=== PATIENT | male | born 1930 | race Caucasian/White ===

== ENCOUNTER 2016-11-28 12:20 | Emergency (ER) | payer OTHER ==
[~2016-11-28] VITALS: Ht 180.3 cm; Wt 93.0 kg
[~2016-11-28 12:20] MED LIST: APIX2.5T PO; CYCL-36 PO; FLUD.1 PO; LEVO88TA2 PO; OMEP20TA39 PO; PARO1TAB71 PO; VALT500T PO; VITA100T15 PO; VITA400D PO
[2016-11-28 12:29] VITALS: BP 125/84; PULSE 80; RESP 16; TEMP 97.6; O2SAT 97
[2016-11-28] MEDS ORDERED: OMEP20TA PO (12:44)
[2016-11-28] MEDS ORDERED: APIX2.5T PO (12:44)
[2016-11-28] MEDS ORDERED: LEVO88TA2 PO (12:44)
[2016-11-28] MEDS ORDERED: PARO10TA2 PO (12:44)
[2016-11-28] MEDS ORDERED: ACETAMINOPHEN 500 MG CPLT PO ONE (13:00)
--- NOTE | 2016-11-28 13:04 | PD ---
HPI Chief Complaint: Fall Time Seen by Provider: 12:57 Travel History International Travel<30 days: No Contact w/Intl Traveler<30days: No Traveled to known affect area: No History of Present Illness HPI 86yo M with PMH of CVA, afib on eliquis presents to the ED with left buttock and hip pain s/p fall 3 days ago. Pt was getting off a stationary exercise bike when he fell backwards and landed on his buttocks. Denies any head trauma , LOC, chest pain, sob, dizziness, n/v, abdominal pain, focal weakness or numbness. Pt was able to ambulate after fall. Pain is mainly in ischial tuberosity on left side and worst with movement. The reason pt decided to come in today is because he was talking to his physical therapist at home and felt that he should make sure everything is fine. Pain is not getting worst and last time he took tylenol was last night. No urinary complaints. Pt had a cyst in left lower back for 1 month and had been evaluated by PMD already and it has gotten better. 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, left arm r/t injury) Social History Alcohol Use: Yes (wine daily) Tobacco Use: No Substance Use: No Allergies-Medications (Allergen,Severity, Reaction): Coded Allergies: Albuterol (Verified Adverse Reaction, Mild, HEART RACING, 11/28/16) Reported Meds & Prescriptions Reported Meds & Active Scripts Active Reported Levothyroxine (Levothyroxine Sodium) 88 Mcg Tab 88 Mcg PO DAILY Paroxetine (Paroxetine HCl) 10 Mg Tab 5 Mg PO DAILY Omeprazole 20 Mg Tab 20 Mg PO DAILY Eliquis (Apixaban) 2.5 Mg Tab 2.5 Mg PO BID Review of Systems Except as stated in HPI: all other systems reviewed are Neg Physical Exam Narrative GENERAL: 86yo M not in distress. SKIN: Focused skin assessment warm/dry. HEAD: Atraumatic. Normocephalic. EYES: Pupils equal and round at 3mm bilaterally. EOMI. No scleral icterus. No injection or drainage. ENT: No nasal bleeding or discharge. Mucous membranes pink and moist. NECK: Trachea midline. No JVD. CARDIOVASCULAR: Regular rate and rhythm. No murmur appreciated. RESPIRATORY: No accessory muscle use. Clear to auscultation. Breath sounds equal bilaterally. GASTROINTESTINAL: Abdomen soft, non-tender, nondistended. No rebound tenderness or guarding. BACK: No midline ttp. Erythematous rash on left paraspinal region that has been there for 1 month. MUSCULOSKELETAL: No obvious deformities. No clubbing. No cyanosis. +Bilateral lower ext edema. +TTP left ischial tuberosity. LLE: No ttp left hip. DP 2+. Good range of motion in left hip, knee, ankle. NEUROLOGICAL: Awake and alert. GCS 15. AAOx3. No obvious cranial nerve deficits. No perineal paresthesia. Motor grossly within normal limits. Normal speech. PSYCHIATRIC: Appropriate mood and affect; insight and judgment normal. Data Data Last Documented VS Vital Signs Date Time Temp Pulse Resp B/P Pulse Ox O2 Delivery O2 Flow Rate FiO2 11/28/16 12:29 97.6 80 16 125/84 97 Orders Hip, Uni(Ap&Lat) W Ap Pelvis (11/28/16 ) Acetaminophen (Tylenol) (11/28/16 13:00) MDM Medical Decision Making Medical Screen Exam Complete: Yes Emergency Medical Condition: Yes Interpretation(s) Last Impressions Hip and Pelvis X-Ray 11/28/16 0000 Signed Impressions: Service Date/Time: Monday, November 28, 2016 13:25 - CONCLUSION: Mild degenerative change without fracture. Vinayak Choi MD Differential Diagnosis Contusion vs. fracture vs. musculoskeletal pain Narrative Course 86yo well appearing male here with left buttock pain s/p fall onto his buttocks 3 days ago. Pt able to ambulate and complains of pain only with movement. Denies any head trauma. Denies any neurologic deficits or urinary complaints. Xray of left hip with pelvis showed mild degenerative change without fracture. Pt given acetaminophen which helped with pain. Pt already has physical therapy that comes to his home. Return precautions given. Diagnosis Primary Impression: Fall Qualified Code: W19.XXXA - Fall, initial encounter Patient Instructions: General Instructions Departure Forms: Tests/Procedures Additional Instructions: Please follow up with your PMD in 3-7 days. Return to the ED if symptoms worsen. Med/Other Pt SpecificInfo: Prescription(s) given Scripts Acetaminophen 325 Mg [id number] Mg PO Q4-6H PRN (PAIN SCALE 1 TO 4) #20 TAB Ref 0 Prov:Hermila Little DO 11/28/16 Disposition: 01 DISCHARGE HOME Condition: Stable Hermila Little DO November 28, 2016 13:04
--- NOTE | 2016-11-28 13:49 | RADHPO ---
EXAM DATE/TIME: 11/28/2016 13:25 [facility] COMPARISON: No previous studies available for comparison. INDICATIONS : Left hip pain. Patient was riding a stationary bike, the bike fell on him when he was getting off. MEDICAL HISTORY : None. SURGICAL HISTORY : None. ENCOUNTER: Initial ACUITY: 3 days PAIN SCORE: 5/10 LOCATION: Left pelvis hip FINDINGS: Examination of the left hip was performed with AP Pelvis. Mild degenerative changes lower lumbar spin e. Mild degenerative changes at each hip. No fracture seen. Prostatic calcifications are noted. CONCLUSION: Mild degenerative change without fracture. Vinayak Choi MD on November 28, 2016 at 13:45 Board Certified Radiologist. This report was verified electronically.
[2016-11-28] MEDS ORDERED: ACET325T PO (14:29)
[2016-11-28 14:38] VITALS: BP 116/68; PULSE 65; RESP 14; O2SAT 96
== END 2016-11-28 14:39 | disposition home or self-care (01) ==
LOC: PHED 12:20
DX: M25.552 Pain in left hip (principal); I48.91 Unspecified atrial fibrillation; I71.4 Abdominal aortic aneurysm, without rupture; F03.90 Unspecified dementia, unspecified severity, without behavioral disturbance, psychotic disturbance, mood disturbance, and anxiety; Z86.73 Personal history of transient ischemic attack (TIA), and cerebral infarction without residual deficits; Z79.01 Long term (current) use of anticoagulants; W17.89XA Other fall from one level to another, initial encounter; Y93.A1 Activity, exercise machines primarily for cardiorespiratory conditioning; Y92.9 Unspecified place or not applicable; Y99.8 Other external cause status
CPT/HCPCS: 73502; 99283

== ENCOUNTER 2017-09-24 13:34 | Emergency (ER) | payer OTHER ==
[~2017-09-24] VITALS: Ht 177.8 cm; Wt 92.0 kg
[~2017-09-24 13:34] MED LIST changes: +ACET325T PO; -CYCL-36 PO; -FLUD.1 PO; -OMEP20TA39 PO; +OMEP20TA93 PO; +PARO10TA2 PO; -PARO1TAB71 PO; -VALT500T PO; -VITA100T15 PO; -VITA400D PO
[2017-09-24 13:43] VITALS: PULSE 74; RESP 16; TEMP 97.8; O2SAT 96
[2017-09-24] MEDS ORDERED: CARV3.12 PO (14:27)
[2017-09-24] MEDS ORDERED: FLUD.1 PO (14:27)
[2017-09-24] MEDS ORDERED: MECL-62 PO (14:27)
[2017-09-24] MEDS ORDERED: POTA-163 PO (14:27)
[2017-09-24] MEDS ORDERED: FURO1TAB62 PO (14:27)
--- NOTE | 2017-09-24 14:32 | RADRPT ---
EXAM DATE/TIME: 09/24/2017 14:05 [facility] COMPARISON: No previous studies available for comparison. INDICATIONS : Left leg pain. MEDICAL HISTORY : Stroke. Dementia. Aneurysm, abdominal. Hypothyroidism. A-fib. SURGICAL HISTORY : Bilateral popliteal aneurysm stents. ENCOUNTER: Initial ACUITY: 2 day PAIN SCORE: 4/10 LOCATION: Left leg. TECHNIQUE: Venous ultrasound of the leg was performed from the inguinal ligament to the proximal calf. Real-archie e, color Doppler and spectral tracing, compression and augmentation techniques were used. FINDINGS: There is normal compressibility of the deep venous system from the inguinal region to the proximal ca lf. No echogenic clot is seen in the lumen of the common femoral, femoral, popliteal, and posterior tibial veins. There is a normal response of the venous system to proximal and distal augmentation an d respiration. No flow is identified in the popliteal artery. CT angiography is recommended for further evaluation i f clinically indicated. CONCLUSION: 1. No evidence of deep venous thrombosis. 2. Popliteal artery occlusion. CT angiography of the abdominal aorta and lower extremities is recomme nded for further evaluation if clinically indicated. Last Marin MD on September 24, 2017 at 14:29 Board Certified Radiologist. This report was verified electronically.
--- NOTE | 2017-09-24 15:01 | PD ---
HPI Chief Complaint: Musculoskeletal Complaint Time Seen by Provider: 13:45 Travel History International Travel<30 days: No Contact w/Intl Traveler<30days: No Traveled to known affect area: No History of Present Illness HPI 87-year-old male that presents to the ED for evaluation of left tight pain. Patient has had this pain since today. He will cover this. No injuries but per son patient has been walking up the stairs and this could've caused this. 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 He does not know the surgeon who did and unclear if he still follows with the same surgeon. He denies any discoloration of the feet or any pain on the feet itself. All the pain is on the medial aspect of the left upper leg. Reproducible with touch as well as with movement. No obvious deformity noted per patient. Per patient the pain is 6 out of 10. He usually uses a walker to get about. Per patient he takes a blood thinner eliquis. He denies any other medical issues. No head injury or loss of consciousness. 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, left arm r/t injury) Social History Alcohol Use: Yes (wine daily) Tobacco Use: No Substance Use: No Allergies-Medications (Allergen,Severity, Reaction): Coded Allergies: albuterol (Unverified Adverse Reaction, Mild, HEART RACING, 09/24/17) Reported Meds & Prescriptions Reported Meds & Active Scripts Active Hydrocodone-Acetaminophen 5-300 Mg Tab 1 Tab PO Q6H PRN Reported Potassium Chloride ER (Potassium Chloride) 20 Meq Tab 20 Meq PO DAILY Lasix (Furosemide) 20 Mg Tab 20 Mg PO DAILY Meclizine (Meclizine HCl) 25 Mg Tab 25 Mg PO DIRECTED PRN Carvedilol 3.125 Mg Tab 3.125 Mg PO BID Fludrocortisone (Fludrocortisone Acetate) 0.1 Mg Tab 0.1 Mg PO BID Levothyroxine (Levothyroxine Sodium) 88 Mcg Tab 88 Mcg PO DAILY Paroxetine (Paroxetine HCl) 10 Mg Tab 5 Mg PO DAILY Omeprazole 20 Mg Tab 20 Mg PO DAILY Eliquis (Apixaban) 2.5 Mg Tab 2.5 Mg PO BID Review of Systems Except as stated in HPI: all other systems reviewed are Neg Physical Exam Narrative GENERAL: SKIN: Warm and dry. HEAD: Atraumatic. Normocephalic. EYES: Pupils equal and round. No scleral icterus. No injection or drainage. ENT: No nasal bleeding or discharge. Mucous membranes pink and moist. NECK: Trachea midline. No JVD. CARDIOVASCULAR: Regular rate and rhythm. RESPIRATORY: No accessory muscle use. Clear to auscultation. Breath sounds equal bilaterally. GASTROINTESTINAL: Abdomen soft, non-tender, nondistended. Hepatic and splenic margins not palpable. MUSCULOSKELETAL: Extremities without clubbing, cyanosis, or edema. No obvious deformities. Patient has reproducible pain on the medial aspect of the left inner thigh. Patient does have surgical scars noted in this area as well from his previous surgeries. Pulses cannot be palpated but with Doppler can be heard. Appears to be 1+. No obvious bony deformity noted. Able to move the leg fully. Pain with movement on the same area. NEUROLOGICAL: Awake and alert. No obvious cranial nerve deficits. Motor grossly within normal limits. Five out of 5 muscle strength in the arms and legs. Normal speech. PSYCHIATRIC: Appropriate mood and affect; insight and judgment normal. Data Data Last Documented VS Vital Signs Date Time Temp Pulse Resp B/P (MAP) Pulse Ox O2 Delivery O2 Flow Rate FiO2 09/24/17 17:36 76 18 134/82 (99) 99 Room Air 09/24/17 13:43 97.8 Orders Orders Femur (Ap & Lat/2vws) (09/24/17 13:53) Ice/Cold Pack (09/24/17 13:53) Us Leg Venous Doppler (09/24/17 13:53) Iv Access Insert/Monitor (09/24/17 14:38) Basic Metabolic Panel (Bmp) (09/24/17 14:38) Coag Profile (09/24/17 14:38) Complete Blood Count With Diff (09/24/17 14:38) Cta Runoff W Iv Contrast W 3d (09/24/17 ) Iohexol 350 Inj (Omnipaque 350 Inj) (09/24/17 16:27) Ed Discharge Order (09/24/17 18:45) Labs Laboratory Tests Test 09/24/17 14:50 White Blood Count 6.3 TH/MM3 Red Blood Count 3.95 MIL/MM3 Hemoglobin 13.3 GM/DL Hematocrit 38.7 % Mean Corpuscular Volume 97.8 FL Mean Corpuscular Hemoglobin 33.5 PG Mean Corpuscular Hemoglobin Concent 34.3 % Red Cell Distribution Width 13.9 % Platelet Count 162 TH/MM3 Mean Platelet Volume 7.9 FL Neutrophils (%) (Auto) 56.4 % Lymphocytes (%) (Auto) 33.3 % Monocytes (%) (Auto) 5.7 % Eosinophils (%) (Auto) 4.3 % Basophils (%) (Auto) 0.3 % Neutrophils # (Auto) 3.5 TH/MM3 Lymphocytes # (Auto) 2.1 TH/MM3 Monocytes # (Auto) 0.4 TH/MM3 Eosinophils # (Auto) 0.3 TH/MM3 Basophils # (Auto) 0.0 TH/MM3 CBC Comment DIFF FINAL Differential Comment Prothrombin Time 11.4 SEC Prothromb Time International Ratio 1.1 RATIO Activated Partial Thromboplast Time 27.8 SEC Blood Urea Nitrogen 16 MG/DL Creatinine 0.85 MG/DL Random Glucose 97 MG/DL Calcium Level 8.8 MG/DL Sodium Level 140 MEQ/L Potassium Level 3.7 MEQ/L Chloride Level 104 MEQ/L Carbon Dioxide Level 30.1 MEQ/L Anion Gap 6 MEQ/L Estimat Glomerular Filtration Rate 85 ML/MIN MDM Medical Decision Making Medical Screen Exam Complete: Yes Emergency Medical Condition: Yes Medical Record Reviewed: Yes Interpretation(s) Last Impressions Lower Extremity Ultrasound 09/24/17 3351 Signed Impressions: Service Date/Time: Sunday, September 24, 2017 14:05 - CONCLUSION: 1. No evidence of deep venous thrombosis. 2. Popliteal artery occlusion. CT angiography of the abdominal aorta and lower extremities is recommended for further evaluation if clinically indicated. Last Marin MD Femur X-Ray 09/24/17 [id number] Signed Impressions: Service Date/Time: Sunday, September 24, 2017 14:00 - CONCLUSION: 1. Negative examination of the femur. Mild osteoarthritis right knee Last Marin MD Aorta w/Runoff CTA 09/24/17 0000 Signed Impressions: Service Date/Time: Sunday, September 24, 2017 16:11 - CONCLUSION: 1. Patent inflow. There is a 4.1 cm AAA which is slightly larger from the prior exam. 2. Right lower extremity shows a patent jump graft around the samish popliteal artery. 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 Runoff to the foot is not well evaluated as there is poor opacification with the contrast bolus. 3. Left lower extremity shows a patent jump graft around the samish popliteal artery. Runoff is poorly evaluated due to poor opacification with the contrast bolus. 4. Chronic interstitial changes in the lung bases. Pablo Sauceda Jr., MD CBC & BMP Diagram 09/24/17 14:50 Calcium Level 8.8 Differential Diagnosis Arterial thrombosis versus occlusion versus DVT versus muscle strain Narrative Course 79-year-old male that presents to the ED for evaluation of left leg pain with no injury. Patient was properly examined and was found to have signs and symptoms concerning for DVT versus arterial injury. Ultrasound was done as well as x-ray and they were both negative for bony injury or DVT but patient does appear to have an occlusion of the artery on the popliteal area. CTA was recommended per radiologist. At this time because patient does have some low pulses at the recommend doing CTA to rule out any sign of anything that might require any intervention. CTA did show an aneurysm but on the right side as well as AAA. Otherwise unremarkable. Case was discussed with Dr. Cooper over the phone who recommends outpatient follow-up outpatient. No immediate intervention needed at this time. Patient's pain on the left leg appears to be muscular in nature and we'll treat with pain medication as needed. Patient was given information for Dr. Cooper office. Patient is aware that he needs to follow with Dr. Cooper. See ED worsening symptoms. Follow with PCP. Diagnosis Primary Impression: Muscle strain Referrals: Bayron Cooper MD Patient Instructions: General Instructions Additional Instructions: Tylenol for pain. Take pain medication as needed. A careful with the pain medication as he might make a little drowsy. I was use a walker when ambulating. Follow-up with Dr. Cooper who is expecting you this week to further manage your aneurysms. His phone number is . Med/Other Pt SpecificInfo: Prescription(s) given Scripts Hydrocodone-Acetaminophen (Hydrocodone-Acetaminophen) 5-300 Mg Tab 1 TAB PO Q6H Y for PAIN, #10 TAB 0 Refills Prov: Bayron Cooper MD 09/24/17 Disposition: 01 DISCHARGE HOME Condition: Nav Triplett Sep 24, 2017 15:01
[2017-09-24 15:12] LABS: AUTOMATED NEUTROPHIL # 3.5 TH/MM3 (1.8-7.7); BASOPHIL % 0.3 % (0.0-2.0); EOSINOPHIL # 0.3 TH/MM3 (0-0.4); EOSINOPHIL % 4.3 % (0.0-4.0); HEMATOCRIT 38.7 % (39.0-51.0); HEMOGLOBIN 13.3 GM/DL (13.0-17.0); LYMPH % 33.3 % (9.0-44.0); LYMPHOCYTE # 2.1 TH/MM3 (1.0-4.8); MEAN CELL VOLUME 97.8 FL (80.0-100.0); MEAN CORPUSCULAR HEMOGLOBIN 33.5 PG (27.0-34.0); MEAN CORPUSCULAR HGB CONC 34.3 % (32.0-36.0); MEAN PLATELET VOLUME 7.9 FL (7.0-11.0); MONO % 5.7 % (0.0-8.0); MONOCYTE # 0.4 TH/MM3 (0-0.9); NEUT % 56.4 % (16.0-70.0); PLATELET COUNT 162 TH/MM3 (150-450); RED BLOOD COUNT 3.95 MIL/MM3 (4.50-5.90); RED CELL DISTRIBUTION WIDTH 13.9 % (11.6-17.2); WHITE BLOOD COUNT 6.3 TH/MM3 (4.0-11.0)
--- NOTE | 2017-09-24 15:18 | RADRPT ---
EXAM DATE/TIME: 09/24/2017 14:00 [facility] COMPARISON: No previous studies available for comparison. INDICATIONS : Left leg pain with no known injury MEDICAL HISTORY : : Stroke. Dementia. Aneurysm, abdominal. Hypothyroidism. A-fib. SURGICAL HISTORY : Bilateral popliteal aneurysm stents ENCOUNTER: Initial ACUITY: 2 days PAIN SCORE: 4/10 LOCATION: Left groin FINDINGS: Two view examination of the left femur demonstrates no evidence of fracture or dislocation. Bony min eralization is normal. The soft tissue structures are intact. CONCLUSION: 1. Negative examination of the femur. Mild osteoarthritis right knee Last Marin MD on September 24, 2017 at 15:16 Board Certified Radiologist. This report was verified electronically.
[2017-09-24 15:25] LABS: BICARBONATE 30.1 MEQ/L (21.0-32.0); CALCIUM 8.8 MG/DL (8.5-10.1); INTERNATIONAL NORMALIZED RATIO 1.1 RATIO; PROTHROMBIN TIME - PATIENT 11.4 SEC (9.8-11.6)
[2017-09-24 15:29] LABS: CREATININE 0.85 MG/DL (0.60-1.30)
[2017-09-24] MEDS ORDERED: IOHEXOL 350 MG/ML 10 ML VIAL (for RAD DIAG) IVCONTRAST ONE (16:27)
[2017-09-24 17:36] VITALS: BP 134/82; PULSE 76; RESP 18; O2SAT 99
--- NOTE | 2017-09-24 18:21 | RADRPT ---
EXAM DATE/TIME: 09/24/2017 16:11 [facility] COMPARISON: CTA RUNOFF W 3D RECON, January 16, 2015, 15:03. INDICATIONS : Leg pain since last night. IV CONTRAST: 95 cc Omnipaque 350 (iohexol) IV RADIATION DOSE: 12.31 CTDIvol (mGy) MEDICAL HISTORY : Stroke. Dementia. Aneurysm, abdominal. Hypothyroidism. A-fib. SURGICAL HISTORY : Bilateral popliteal aneurysm stents. ENCOUNTER: Initial ACUITY: 2 days PAIN SCALE: 4/10 LOCATION: Left leg TECHNIQUE: Volumetric scanning was performed using a multi-row detector CT scanner. The data was post processed with a variety of visualization algorithms including full volume maximum intensity projection, multi -planar sliding thin slab reformation, curved planar reformation, and surface rendering techniques. Using automated exposure control and adjustment of the mA and/or kV according to patient size, radiat ion dose was kept as low as reasonably achievable to obtain optimal diagnostic quality images. DICO M format image data is available electronically for review and comparison. FINDINGS: Aorta/inflow: There is a 4.1 x 3.4 cm fusiform infrarenal abdominal aortic aneurysm. This is minimally larger from the prior study. Inflow is patent. Both internal iliac arteries are patent. The celiac, SMA, and catrachita l arteries are patent. Right lower extremity: The common femoral artery and profunda femoris are patent. The SFA is patent. There is a jump graft e xtending from the vnkfs-but-clap popliteal artery to the below knee popliteal artery. This is patent. There is a saccular style aneurysm involving the [place] [id number]-[id number]-[id number] popliteal artery at the level of the proximal anastomosis. This measures 2.8 cm in size which is larger from the prior study where it measured 2 cm in size. The [place] popliteal artery that is now that has been bypassed shows a thr ombosed popliteal artery aneurysm. The below knee popliteal artery and immediate proximal trifurcatio n vessels are patent. Below this there is poor opacification with the contrast bolus secondary to a d elusional effect from the more proximal aneurysm. Left lower extremity: The common femoral artery, profunda femoris, and SFA are patent. There is a jump graft around the pop liteal artery. The proximal anastomosis is at the fibqv-gvz-rsda popliteal level with the distal anas tomosis at the below knee popliteal level. The bypass is patent. The below knee popliteal artery and immediate proximal trifurcation vessels are patent. There is poor opacification of the vessels distal to this point. Other structures: Chronic interstitial changes within the visualized lung bases. Coronary artery atherosclerotic calcif ications noted. Prostate gland calcifications noted. No discrete mass observed. Of CONCLUSION: 1. Patent inflow. There is a 4.1 cm AAA which is slightly larger from the prior exam. 2. Right lower extremity shows a patent jump graft around the [place] popliteal artery. 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 Runoff to the foot is not well evaluated as there is poor opacification with the contra st bolus. 3. Left lower extremity shows a patent jump graft around the [place] popliteal artery. Runoff is poorl y evaluated due to poor opacification with the contrast bolus. 4. Chronic interstitial changes in the lung bases. Pablo Sauceda Jr., MD on September 24, 2017 at 18:07 Board Certified Radiologist. This report was verified electronically.
[2017-09-24] MEDS ORDERED: HYDR-4107 PO ×2 (18:47→18:52)
== END 2017-09-24 18:56 | disposition home or self-care (01) ==
LOC: PHEFT 13:34
DX: S86.912A Strain of unspecified muscle(s) and tendon(s) at lower leg level, left leg, initial encounter (principal); M17.11 Unilateral primary osteoarthritis, right knee; I48.91 Unspecified atrial fibrillation; F03.90 Unspecified dementia, unspecified severity, without behavioral disturbance, psychotic disturbance, mood disturbance, and anxiety; I69.998 Other sequelae following unspecified cerebrovascular disease; E07.9 Disorder of thyroid, unspecified; Z79.899 Other long term (current) drug therapy; Z88.8 Allergy status to other drugs, medicaments and biological substances; X58.XXXA Exposure to other specified factors, initial encounter
CPT/HCPCS: 73552; 75635; 80048; 85025; 85610; 85730; 93971; 99284; Q9967

== ENCOUNTER 2017-11-30 18:03 | Observation (INO) | payer OTHER ==
[~2017-11-30] VITALS: Ht 180.3 cm; Wt 95.0 kg
[~2017-11-30 18:03] MED LIST changes: -ACET325T PO; +CARV3.12 PO; +FLUD.1 PO; +FURO1TAB62 PO; +HYDR-4107 PO; +MECL-62 PO; +POTA-163 PO
[2017-11-30 18:35] VITALS: BP 135/88; PULSE 90; RESP 20; TEMP 101.7; O2SAT 95
[2017-11-30] MEDS ORDERED: OMEP20TA93 PO (18:48)
[2017-11-30] MEDS ORDERED: LEVO88TA2 PO (18:48)
[2017-11-30] MEDS ORDERED: VITA100064 PO (18:48)
[2017-11-30] MEDS ORDERED: FLUT50SP EACH NARE (18:48)
[2017-11-30] MEDS ORDERED: FLUD.1 PO (18:48)
[2017-11-30] MEDS ORDERED: CYAN1TAB24 PO (18:48)
--- NOTE | 2017-11-30 18:58 | PD ---
HPI Chief Complaint: Fever Time Seen by Provider: 18:55 Travel History International Travel<30 days: No Contact w/Intl Traveler<30days: No Traveled to known affect area: No History of Present Illness HPI 87-year-old male came to the emergency room brought by EMS for confusion, fever of 101. He is coming from home. Patient has history of dementia and is unable to give any meaningful history. Awaiting for his family to arrive. Patient's temperature in the emergency room was 101.7 rectally. He is awake but incapable of answering questions appropriately. Vital signs otherwise stable. [facility] Past Medical History Narrative Medical List of his past medical, surgical, social and family history is reviewed from the nursing note. Hx Anticoagulant Therapy: Yes AAA: Yes Atrial Fibrillation: Yes Cancer: No Cardiovascular Problems: No Cerebrovascular Accident: Yes (CVA GAIT ISSUES) Dementia: Yes Diabetes: No Diminished Hearing: Yes (hearing aides) Endocrine: No Genitourinary: No Immune Disorder: No Musculoskeletal: No Neurologic: No Psychiatric: No Reproductive: No Respiratory: No Shingles: Yes Thyroid Disease: Yes (Hypo-) Tetanus Vaccination: < 5 Years Influenza Vaccination: Yes Past Surgical History Other Surgery: Yes (aneurysm to bilat popliteal with repairs, left arm r/t injury) Social History Alcohol Use: Yes (Wine daily ) Tobacco Use: No Substance Use: No Allergies-Medications (Allergen,Severity, Reaction): Coded Allergies: albuterol (Verified Adverse Reaction, Mild, Heart racing , 11/30/17) Comments List of his allergies reviewed from the nursing note Reported Meds & Prescriptions Reported Meds & Active Scripts Active Reported Fluticasone Nasal [place] 50 Mcg/Act Naspr 100 Mcg EACH NARE DAILY 50 mcg/spray Omeprazole 20 Mg Tab 20 Mg PO DAILY Levothyroxine (Levothyroxine Sodium) 88 Mcg Tab 88 Mcg PO DAILY Fludrocortisone (Fludrocortisone Acetate) 0.1 Mg Tab 0.1 Mg PO BID Vitamin D3 (Cholecalciferol) 1,000 Unit Tab 1,000 Units PO DAILY B12 (Cyanocobalamin) 1,000 Mcg Tab 1 Tab PO DAILY Potassium Chloride ER (Potassium Chloride) 20 Meq Tab 20 Meq PO DAILY Lasix (Furosemide) 20 Mg Tab 20 Mg PO DAILY Meclizine (Meclizine HCl) 25 Mg Tab 25 Mg PO BID Carvedilol 3.125 Mg Tab 3.125 Mg PO BID Paroxetine (Paroxetine HCl) 10 Mg Tab 5 Mg PO DAILY Eliquis (Apixaban) 2.5 Mg Tab 2.5 Mg PO BID Narrative Medication List of his home medications reviewed from the nursing note. Review of Systems ROS Limitations: Altered Mental Status Except as stated in HPI: all other systems reviewed are Neg General / Constitutional: Positive: Fever Physical Exam Exam Limitations: Altered Mental Status Narrative GENERAL: Elderly, confused, not following commands SKIN: Focused skin assessment warm/dry. HEAD: Atraumatic. Normocephalic. EYES: Pupils equal and round. No scleral icterus. No injection or drainage. ENT: No nasal bleeding or discharge. Mucous membranes pink and moist. NECK: Trachea midline. No JVD. CARDIOVASCULAR: Regular rate and rhythm. No murmur appreciated. RESPIRATORY: No accessory muscle use. Clear to auscultation. Breath sounds equal bilaterally. GASTROINTESTINAL: Abdomen soft, non-tender, nondistended. Hepatic and splenic margins not palpable. MUSCULOSKELETAL: No obvious deformities. No clubbing. No cyanosis. No edema. NEUROLOGICAL: Awake and alert. No obvious cranial nerve deficits. Motor grossly within normal limits. Normal speech. PSYCHIATRIC: Appropriate mood and affect; insight and judgment normal. Data Data Last Documented VS Vital Signs Date Time Temp Pulse Resp B/P (MAP) Pulse Ox O2 Delivery O2 Flow Rate FiO2 11/30/17 18:40 90 20 95 Room Air 11/30/17 18:35 101.7 135/88 (104) Orders Orders Electrocardiogram (11/30/17 18:56) Ammonia (11/30/17 18:56) Complete Blood Count With Diff (11/30/17 18:56) Comprehensive Metabolic Panel (11/30/17 18:56) Creatine Kinase (Cpk) (11/30/17 18:56) Prothrombin Time / Inr (Pt) (11/30/17 18:56) Troponin I (11/30/17 18:56) Thyroid Stimulating Hormone (11/30/17 18:56) Urinalysis - C+S If Indicated (11/30/17 18:56) Lactic Acid Sepsis Protocol (11/30/17 18:56) Blood Culture (11/30/17 18:56) Chest, Single Ap (11/30/17 18:56) Ct Brain W/O Iv Contrast(Rout) (11/30/17 18:56) Blood Glucose (11/30/17 18:56) Ecg Monitoring (11/30/17 18:56) Iv Access Insert/Monitor (11/30/17 18:56) Oximetry (11/30/17 18:56) Sodium Chloride 0.9% Flush (Ns Flush) (11/30/17 19:00) Influenzae A/B Antigen (11/30/17 18:56) Sodium Chlorid 0.9% 500 Ml Inj (Ns 500 M (11/30/17 19:00) Acetaminophen Supp (Tylenol Supp) (11/30/17 19:00) MDM Medical Decision Making Medical Screen Exam Complete: Yes Emergency Medical Condition: Yes Medical Record Reviewed: Yes Interpretation(s) Twelve-lead EKG was reviewed by me. Normal sinus rhythm, left axis deviation, nonspecific ST-T wave changes. Heart rate of 89 bpm Differential Diagnosis Sepsis, pneumonia, UTI, influenza, electrolyte abnormality Narrative Course 6:59 PM awaiting for the blood test result. I have ordered 500 mL of fluid bolus and Tylenol suppository. Case will be signed over to the oncoming ER physician. Procedures EKG Prior to Arrival: Edison Villegas MD November 30, 2017 18:58
[2017-11-30] MEDS ORDERED: SODIUM CHLORIDE 0.9% FLUSH 10 ML FLUSH IV FLUSH PRN ×2 (19:00→21:00)
[2017-11-30] MEDS ORDERED: ACETAMINOPHEN 650 MG SUPP RECTAL ONE (19:00)
[2017-11-30] MEDS ORDERED: SODIUM CHLORID 0.9% 500 ML INJ 500 ML IV ONE (19:00)
[2017-11-30 19:20] LABS: AUTOMATED NEUTROPHIL # 5.9 TH/MM3 (1.8-7.7); BASOPHIL % 0.4 % (0.0-2.0); EOSINOPHIL # 0.1 TH/MM3 (0-0.4); HEMATOCRIT 37.9 % (39.0-51.0); HEMOGLOBIN 13.3 GM/DL (13.0-17.0); LYMPH % 18.8 % (9.0-44.0); LYMPHOCYTE # 1.5 TH/MM3 (1.0-4.8); MEAN CELL VOLUME 97.3 FL (80.0-100.0); MEAN CORPUSCULAR HEMOGLOBIN 34.2 PG (27.0-34.0); MEAN CORPUSCULAR HGB CONC 35.1 % (32.0-36.0); MEAN PLATELET VOLUME 8.8 FL (7.0-11.0); MONO % 5.4 % (0.0-8.0); MONOCYTE # 0.4 TH/MM3 (0-0.9); NEUT % 74.4 % (16.0-70.0); PLATELET COUNT 155 TH/MM3 (150-450); RED BLOOD COUNT 3.89 MIL/MM3 (4.50-5.90); WHITE BLOOD COUNT 7.9 TH/MM3 (4.0-11.0)
[2017-11-30 19:32] LABS: CHLORIDE 106 MEQ/L (98-107); SODIUM (NA) 142 MEQ/L (136-145)
[2017-11-30 19:35] LABS: CALCIUM 8.7 MG/DL (8.5-10.1)
[2017-11-30 19:36] LABS: ALBUMIN 3.6 GM/DL (3.4-5.0); BICARBONATE 27.5 MEQ/L (21.0-32.0); BLOOD UREA NITROGEN 12 MG/DL (7-18); GLUCOSE,RANDOM 98 MG/DL (74-106)
[2017-11-30 19:39] LABS: ALT (GPT) 15 U/L (12-78); AST (GOT) 16 U/L (15-37); CREATININE 0.85 MG/DL (0.60-1.30); GLOMERULAR FILTRATION RATE 85 ML/MIN (>89)
[2017-11-30 19:40] LABS: TOTAL PROTEIN 7.8 GM/DL (6.4-8.2)
[2017-11-30 19:42] LABS: ALKALINE PHOSPHATASE 76 U/L (45-117)
[2017-11-30 19:44] LABS: TROPONIN I LESS THAN 0.02 NG/ML (0.02-0.05)
--- NOTE | 2017-11-30 19:49 | RADRPT ---
EXAM DATE/TIME: 11/30/2017 19:15 [place] COMPARISON: CT BRAIN W/O CONTRAST, November 29, 2015, 22:34. INDICATIONS : Altered mental status. RADIATION DOSE: 62.90 CTDIvol (mGy) MEDICAL HISTORY : Dementia. Cardiovascular disease Aneurysm, abdominal. SURGICAL HISTORY : None. ENCOUNTER: Initial ACUITY: 1 day PAIN SCALE: 0/10 LOCATION: cranial TECHNIQUE: Multiple contiguous axial images were obtained of the head. Using automated exposure control and adj ustment of the mA and/or kV according to patient size, radiation dose was kept as low as reasonably a chievable to obtain optimal diagnostic quality images. DICOM format image data is available electro nically for review and comparison. FINDINGS: CEREBRUM: Atrophy. The ventricles are normal for age. No evidence of midline shift, mass lesion, hemorrhage or acute infarction. No extra-axial fluid collections are seen. POSTERIOR FOSSA: Small area of encephalomalacia involving the inferior left cerebellar hemisphere. This is unchanged. The cerebellum and brainstem are intact. The 4th ventricle is midline. The cerebellopontine angle i s unremarkable. EXTRACRANIAL: The visualized portion of the orbits is intact. Mucosal thickening without air-fluid levels involving the ethmoid air cells and to a lesser degree maxillary sinuses bilaterally. SKULL: The calvaria is intact. No evidence of skull fracture. CONCLUSION: 1. Atrophy. 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 3. No acute intracranial abnormality. 4. Chronic paranasal sinus disease. Pablo Sauceda Jr., MD on November 30, 2017 at 19:45 Board Certified Radiologist. This report was verified electronically.
[2017-11-30 20:10] LABS: INTERNATIONAL NORMALIZED RATIO 1.1 RATIO; PROTHROMBIN TIME - PATIENT 11.5 SEC (9.8-11.6)
[2017-11-30 20:19] LABS: BILIRUBIN, URINE NEG (NEG); BLOOD, URINE TRACE (NEG); GLUCOSE,URINE NEG (NEG); KETONE, URINE NEG (NEG); NITRITE,URINE NEG (NEG); URINE COLOR YELLOW (YELLW/STRAW); URINE LEUKOCYTE ESTERASE TRACE (NEG)
--- NOTE | 2017-11-30 20:21 | PD ---
Physical Exam Date Seen by Provider: November 30, 2017 Time Seen by Provider: 20:17 Narrative pt signed out o me at 7pm pt has fever 101.7 and was given rectal tylenol and fever coming down, Pt had an episode lasting 5 hrs starting today at noon he became globally altered and mentally confusion and broken garbled speech and weakness to where he tried to stand and only slid out of the chair , was there and witnessed the entire events , Pt has had a URI with cough and congestion for 3 days . Pt is now mentation is improveing according to son , " he cleared up as soon as arrived bedside in ER " tylenol given at 7pm and possibly temp coming down and mentation clearing Data Data Last Documented VS Vital Signs Date Time Temp Pulse Resp B/P (MAP) Pulse Ox O2 Delivery O2 Flow Rate FiO2 11/30/17 20:43 86 18 136/84 (101) 97 Room Air 11/30/17 18:35 101.7 Orders Orders Electrocardiogram (11/30/17 18:56) Ammonia (11/30/17 18:56) Complete Blood Count With Diff (11/30/17 18:56) Comprehensive Metabolic Panel (11/30/17 18:56) Creatine Kinase (Cpk) (11/30/17 18:56) Prothrombin Time / Inr (Pt) (11/30/17 18:56) Troponin I (11/30/17 18:56) Thyroid Stimulating Hormone (11/30/17 18:56) Urinalysis - C+S If Indicated (11/30/17 18:56) Lactic Acid Sepsis Protocol (11/30/17 18:56) Blood Culture (11/30/17 18:56) Ct Brain W/O Iv Contrast(Rout) (11/30/17 18:56) Blood Glucose (11/30/17 18:56) Ecg Monitoring (11/30/17 18:56) Iv Access Insert/Monitor (11/30/17 18:56) Oximetry (11/30/17 18:56) Sodium Chloride 0.9% Flush (Ns Flush) (11/30/17 19:00) Influenzae A/B Antigen (11/30/17 18:56) Sodium Chlorid 0.9% 500 Ml Inj (Ns 500 M (11/30/17 19:00) Acetaminophen Supp (Tylenol Supp) (11/30/17 19:00) Admit Order (Ed Use Only) (11/30/17 20:52) Labs Laboratory Tests Test 11/30/17 18:40 11/30/17 18:45 11/30/17 20:10 Lactic Acid Level 1.2 mmol/L Ammonia 15 MCMOL/L White Blood Count 7.9 TH/MM3 Red Blood Count 3.89 MIL/MM3 Hemoglobin 13.3 GM/DL Hematocrit 37.9 % Mean Corpuscular Volume 97.3 FL Mean Corpuscular Hemoglobin 34.2 PG Mean Corpuscular Hemoglobin Concent 35.1 % Red Cell Distribution Width 14.0 % Platelet Count 155 TH/MM3 Mean Platelet Volume 8.8 FL Neutrophils (%) (Auto) 74.4 % Lymphocytes (%) (Auto) 18.8 % Monocytes (%) (Auto) 5.4 % Eosinophils (%) (Auto) 1.0 % Basophils (%) (Auto) 0.4 % Neutrophils # (Auto) 5.9 TH/MM3 Lymphocytes # (Auto) 1.5 TH/MM3 Monocytes # (Auto) 0.4 TH/MM3 Eosinophils # (Auto) 0.1 TH/MM3 Basophils # (Auto) 0.0 TH/MM3 CBC Comment DIFF FINAL Differential Comment Prothrombin Time 11.5 SEC Prothromb Time International Ratio 1.1 RATIO Blood Urea Nitrogen 12 MG/DL Creatinine 0.85 MG/DL Random Glucose 98 MG/DL Total Protein 7.8 GM/DL Albumin 3.6 GM/DL Calcium Level 8.7 MG/DL Alkaline Phosphatase 76 U/L Aspartate Amino Transf (AST/SGOT) 16 U/L Alanine Aminotransferase (ALT/SGPT) 15 U/L Total Bilirubin 1.0 MG/DL Sodium Level 142 MEQ/L Potassium Level 3.4 MEQ/L Chloride Level 106 MEQ/L Carbon Dioxide Level 27.5 MEQ/L Anion Gap 9 MEQ/L Estimat Glomerular Filtration Rate 85 ML/MIN Total Creatine Kinase 59 U/L Troponin I LESS THAN 0.02 NG/ML Thyroid Stimulating Hormone 3rd Gen 1.170 uIU/ML Urine Color YELLOW Urine Turbidity CLEAR Urine pH 7.0 Urine Specific [place] 1.015 Urine Protein TRACE mg/dL Urine Glucose (UA) NEG mg/dL Urine Ketones NEG mg/dL Urine Occult Blood TRACE Urine Nitrite NEG Urine Bilirubin NEG Urine Urobilinogen 1.0 MG/DL Urine Leukocyte Esterase TRACE Urine RBC 0-3 /hpf Urine WBC 0-2 /hpf Urine Squamous Epithelial Cells 0-5 /hpf Microscopic Urinalysis Comment CATH-CULT NOT IND MDM Supervised Visit with BARNEY: No Narrative Course UA NEGATIV E CXR NO ACUTE FINDINGS AND LABS NO OBVIOUS BACTERIAL SOURCE FOR FEVER AND pT IS FEELING BETTER AFTER TYLENOL AND FEVER REDUCED. MENTATION AND STRENGTH IMPROVED , AdMITTED TO OBSERVATION Diagnosis Primary Impression: Fever Qualified Codes: R50.9 - Fever, unspecified Additional Impressions: Upper respiratory infection, viral Weakness generalized Admitting Information Admitting Physician Requests: Observation Romulo Saunders MD November 30, 2017 20:21
[2017-11-30 20:33] LABS: RBC, URINE 0-3 /hpf (0-3); SQUAMOUS EPITHELIAL CELL URINE 0-5 /hpf (0-5); WBC, URINE 0-2 /hpf (0-5)
[2017-11-30 20:38] VITALS: O2SAT 97
[2017-11-30 20:43] VITALS: BP 136/84; PULSE 86; RESP 18; O2SAT 97
--- NOTE | 2017-11-30 20:59 | HHI.PR ---
Addendum To [facility] Progress Not Remarks FYI.. Pt initially registered as QUYEN STUART [id number] CXR under that V number showing "chronic interstitial changes, 2cm nodular density right lung base, consider short term follow up PA and lateral view of the chest" Vanessa Preston MD November 30, 2017 20:59
[2017-11-30] MEDS ORDERED: MAGNESIUM HYDROXIDE SUSP 30 ML CUP PO PRN (21:00)
[2017-11-30] MEDS: DOCUSATE SODIUM 50 MG/SENNA 8.6 MG TAB PO SCH (21:00)
[2017-11-30] MEDS ORDERED: BISACODYL 10 MG SUPP RECTAL PRN (21:00)
[2017-11-30] MEDS: SODIUM CHLORIDE 0.9% FLUSH 10 ML FLUSH IV FLUSH SCH (21:00)
[2017-11-30] MEDS ORDERED: SENNOSIDES 8.6 MG TAB PO PRN (21:00)
[2017-11-30] MEDS ORDERED: METOCLOPRAMIDE HCL 10 MG/2 ML VIAL IV PUSH PRN (21:00)
[2017-11-30] MEDS ORDERED: ACETAMINOPHEN 325 MG TAB PO PRN (21:00)
[2017-11-30] MEDS ORDERED: LACTULOSE SYRUP 20 GM/30 ML CUP PO PRN (21:00)
[2017-11-30] MEDS: SODIUM CHLOR 0.9% 1000 ML INJ 1,000 ML IV SCH (21:05)
[2017-11-30] MEDS: CARVEDILOL 3.125 MG TAB PO SCH (22:11)
[2017-11-30] MEDS: APIXABAN 2.5 MG TABLET PO SCH (22:11)
[2017-11-30] MEDS: FLUDROCORTISONE ACETATE 0.1 MG TAB PO SCH (22:12)
[2017-11-30 22:13] VITALS: BP 128/74; PULSE 80; RESP 18; O2SAT 97
[2017-12-01] VITALS (8 sets, daily range): BP systolic 99–146; BP diastolic 58–80; PULSE 68–81; RESP 16–20; TEMP 96–98.9; O2SAT 93–99
[2017-12-01] MEDS: LEVOTHYROXINE SODIUM 88 MCG TAB PO SCH (06:03)
[2017-12-01 06:28] LABS: AUTOMATED NEUTROPHIL # 3.6 TH/MM3 (1.8-7.7); BASOPHIL % 0.5 % (0.0-2.0); EOSINOPHIL # 0.2 TH/MM3 (0-0.4); EOSINOPHIL % 3.7 % (0.0-4.0); HEMATOCRIT 35.6 % (39.0-51.0); LYMPH % 24.4 % (9.0-44.0); LYMPHOCYTE # 1.4 TH/MM3 (1.0-4.8); MEAN CELL VOLUME 97.4 FL (80.0-100.0); MEAN CORPUSCULAR HEMOGLOBIN 32.9 PG (27.0-34.0); MEAN CORPUSCULAR HGB CONC 33.8 % (32.0-36.0); MEAN PLATELET VOLUME 7.8 FL (7.0-11.0); MONO % 7.7 % (0.0-8.0); MONOCYTE # 0.4 TH/MM3 (0-0.9); NEUT % 63.7 % (16.0-70.0); PLATELET COUNT 128 TH/MM3 (150-450); RED BLOOD COUNT 3.66 MIL/MM3 (4.50-5.90); RED CELL DISTRIBUTION WIDTH 13.4 % (11.6-17.2); WHITE BLOOD COUNT 5.6 TH/MM3 (4.0-11.0)
[2017-12-01 06:39] LABS: CHLORIDE 107 MEQ/L (98-107); SODIUM (NA) 142 MEQ/L (136-145)
[2017-12-01] MEDS: SODIUM CHLOR 0.9% 1000 ML INJ 1,000 ML IV SCH (06:41)
[2017-12-01 06:44] LABS: ALBUMIN 3.1 GM/DL (3.4-5.0); BICARBONATE 30.6 MEQ/L (21.0-32.0); CALCIUM 8.4 MG/DL (8.5-10.1); GLUCOSE,RANDOM 98 MG/DL (74-106)
[2017-12-01 06:45] LABS: BLOOD UREA NITROGEN 11 MG/DL (7-18)
[2017-12-01 06:48] LABS: ALT (GPT) 17 U/L (12-78); AST (GOT) 16 U/L (15-37); CREATININE 0.79 MG/DL (0.60-1.30); GLOMERULAR FILTRATION RATE 93 ML/MIN (>89)
[2017-12-01 06:49] LABS: TOTAL BILIRUBIN ADULT 1.6 MG/DL (0.2-1.0)
[2017-12-01 06:50] LABS: ALKALINE PHOSPHATASE 67 U/L (45-117)
[2017-12-01] MEDS: PARoxetine HCL SUSP 20 MG/10 ML UDC PO SCH (09:00)
[2017-12-01] MEDS: FLUDROCORTISONE ACETATE 0.1 MG TAB PO SCH ×2 (10:05→21:28)
[2017-12-01] MEDS: DOCUSATE SODIUM 50 MG/SENNA 8.6 MG TAB PO SCH ×2 (10:05→21:27)
[2017-12-01] MEDS: CARVEDILOL 3.125 MG TAB PO SCH ×2 (10:05→21:28)
[2017-12-01] MEDS: APIXABAN 2.5 MG TABLET PO SCH ×2 (10:05→21:28)
[2017-12-01] MEDS: PANTOPRAZOLE SOD 20 MG DELAYED RELEASE TAB PO SCH (10:05)
[2017-12-01] MEDS: SODIUM CHLORIDE 0.9% FLUSH 10 ML FLUSH IV FLUSH SCH ×2 (10:06→21:27)
--- NOTE | 2017-12-01 12:40 | HHI.HP ---
[facility] Service [facility] Primary Care Physician Jessie Jay MD Admission Diagnosis URI --> global weakness & confusion Diagnoses: Chief Complaint: Weakness confusion Travel History International Travel<30 Days: No Contact w/Intl Traveler <30 Da: No Traveled to Known Affected Are: No History of Present Illness This patient is an 87-year-old gentleman with a history of dementia who comes to the hospital complaining of fever and weakness. He is a coming by his spouse who says acutely for 1 day he had generalized weakness and was unable to get out of the chair. She fell he was weak all over and was recently recovering from a u upper respiratory tract infection which was associated with cough and chest congestion. He had been taken Tylenol. He was somewhat improved but still was not quite himself. Patient came to the hospital for further evaluation and treatment. He was found to have a temperature of 101.7 rectally. Chest x-ray was done (please see alternative V number is the patient' s last name was misspelled on admission). Was not hypotensive or tachypneic and he did not have leukocytosis. CT of the head is unremarkable. Patient was recommended for further evaluation treatment due to fever and possible weakness Review of Systems Constitutional: COMPLAINS OF: Fever, Chills, DENIES: Diaphoretic episodes, Fatigue, Weight gain, Weight loss, Dizziness, Change in appetite, Night Sweats Endocrine: DENIES: Heat/cold intolerance, Polydipsia, Polyuria, Polyphagia Eyes: DENIES: Blurred vision, Diplopia, Eye inflammation, Eye pain, Vision loss , Photosensitivity, Double Vision Ears, nose, mouth, throat: DENIES: Tinnitus, Hearing loss, Vertigo, Nasal discharge, Oral lesions, Throat pain, Hoarseness, Ear Pain, Running Nose, Epistaxis, Sinus Pain, Toothache, Odynophagia Respiratory: COMPLAINS OF: Cough, Sputum production, DENIES: Apneas, Snoring, Wheezing, Hemoptysis, Shortness of breath Cardiovascular: DENIES: Chest pain, Palpitations, Syncope, Dyspnea on Exertion , PND, Lower Extremity Edema, Orthopnea, Claudication Gastrointestinal: DENIES: Abdominal pain, Black stools, Bloody stools, Constipation, Diarrhea, Nausea, Vomiting, Difficulty Swallowing, Anorexia Genitourinary: DENIES: Sexual dysfunction, Urinary frequency, Urinary incontinence, Urgency, Hematuria, Dysuria, Nocturia, Penile Discharge, Testicular Pain, Testicular Swelling Musculoskeletal: DENIES: Joint pain, Muscle aches, Stiffness, Joint Swelling, Back pain, Neck pain Integumentary: DENIES: Abnormal pigmentation, Nail changes, Pruritus, Rash Hematologic/lymphatic: DENIES: Bruising, Lymphadenopathy Immunologic/allergic: DENIES: Eczema, Urticaria Neurologic: COMPLAINS OF: Abnormal gait (Patient uses a cane at baseline from previous stroke) Psychiatric: DENIES: Anxiety, Confusion, Mood changes, Depression, Hallucinations, Agitation, Suicidal Ideation, Homicidal Ideation, Delusions Past Family Social History Past Medical History Dementia History of stroke Abdominal aortic Atrial fibrillation Hard of hearing Past Surgical History Vascular surgery, nothing new in the last 10 years Reported Medications Reviewed in the EMR, nothing new Allergies: Coded Allergies: albuterol (Verified Adverse Reaction, Mild, Heart racing , 11/30/17) Active Ordered Medications Reviewed in the EMR Family History Hypertension dementia Social History , no tobacco or alcohol dependency although he drinks wine daily Physical Exam Vital Signs Vital Signs Date Time Temp Pulse Resp B/P (MAP) Pulse Ox O2 Delivery O2 Flow Rate FiO2 12/01/17 08:08 12/01/17 08:00 97.2 73 20 146/72 (96) 96 12/01/17 07:26 71 16 142/78 (99) 99 Room Air 12/01/17 06:11 98.9 68 18 146/80 (102) 97 Room Air 12/01/17 03:57 68 18 128/72 (90) 97 Room Air 12/01/17 02:00 70 18 132/76 (94) 97 Room Air 12/01/17 00:11 72 18 126/74 (91) 97 Room Air 11/30/17 22:13 80 18 128/74 (92) 97 Room Air 11/30/17 20:43 86 18 136/84 (101) 97 Room Air 11/30/17 20:38 97 11/30/17 18:40 90 20 95 Room Air 11/30/17 18:35 101.7 90 20 135/88 (104) 95 Physical Exam GENERAL: This is a well-nourished, well-developed patient, elderly confused male at baseline HEAD: Atraumatic. Normocephalic. No temporal or scalp tenderness. EYES: Pupils equal round and reactive. Extraocular motions intact. No scleral icterus. No injection or drainage. ENT: Nose without bleeding, purulent drainage or septal hematoma. Throat without erythema, tonsillar hypertrophy or exudate. Uvula midline. Airway patent. NECK: Trachea midline. No JVD or lymphadenopathy. Supple, nontender, no meningeal signs. CARDIOVASCULAR: Regular rate and rhythm without murmurs, gallops, or rubs. RESPIRATORY: Clear to auscultation. Breath sounds equal bilaterally. No wheezes , rales, or rhonchi. GASTROINTESTINAL: Abdomen soft, non-tender, nondistended. No hepato-splenomegaly , or palpable masses. No guarding. MUSCULOSKELETAL: Extremities without clubbing, cyanosis, or edema. No joint tenderness, effusion, or edema noted. No calf tenderness. Negative Homans sign bilaterally. NEUROLOGICAL: Awake and alert. Hard of hearing. Motor and sensory grossly within normal limits. Five out of 5 muscle strength in all muscle groups. Normal speech. Laboratory Laboratory Tests Test 11/30/17 18:40 11/30/17 18:45 11/30/17 20:10 12/01/17 06:00 Lactic Acid Level 1.2 Ammonia 15 White Blood Count 7.9 5.6 Red Blood Count 3.89 3.66 Hemoglobin 13.3 12.0 Hematocrit 37.9 35.6 Mean Corpuscular Volume 97.3 97.4 Mean Corpuscular Hemoglobin 34.2 32.9 Mean Corpuscular Hemoglobin Concent 35.1 33.8 Red Cell Distribution Width 14.0 13.4 Platelet Count 155 128 Mean Platelet Volume 8.8 7.8 Neutrophils (%) (Auto) 74.4 63.7 Lymphocytes (%) (Auto) 18.8 24.4 Monocytes (%) (Auto) 5.4 7.7 Eosinophils (%) (Auto) 1.0 3.7 Basophils (%) (Auto) 0.4 0.5 Neutrophils # (Auto) 5.9 3.6 Lymphocytes # (Auto) 1.5 1.4 Monocytes # (Auto) 0.4 0.4 Eosinophils # (Auto) 0.1 0.2 Basophils # (Auto) 0.0 0.0 CBC Comment DIFF FINAL DIFF FINAL Differential Comment Prothrombin Time 11.5 Prothromb Time International Ratio 1.1 Blood Urea Nitrogen 12 11 Creatinine 0.85 0.79 Random Glucose 98 98 Total Protein 7.8 7.0 Albumin 3.6 3.1 Calcium Level 8.7 8.4 Alkaline Phosphatase 76 67 Aspartate Amino Transf (AST/SGOT) 16 16 Alanine Aminotransferase (ALT/SGPT) 15 17 Total Bilirubin 1.0 1.6 Sodium Level 142 142 Potassium Level 3.4 3.5 Chloride Level 106 107 Carbon Dioxide Level 27.5 30.6 Anion Gap 9 4 Estimat Glomerular Filtration Rate 85 93 Total Creatine Kinase 59 Troponin I LESS THAN 0.02 Thyroid Stimulating Hormone 3rd Gen 1.170 Urine Color YELLOW Urine Turbidity CLEAR Urine pH 7.0 Urine Specific [place] 1.015 Urine Protein TRACE Urine Glucose (UA) NEG Urine Ketones NEG Urine Occult Blood TRACE Urine Nitrite NEG Urine Bilirubin NEG Urine Urobilinogen 1.0 Urine Leukocyte Esterase TRACE Urine RBC 0-3 Urine WBC 0-2 Urine Squamous Epithelial Cells 0-5 Microscopic Urinalysis Comment CATH-CULT NOT IND Date/Time Source Procedure Growth Status 11/30/17 18:45 Blood Peripheral Aerobic Blood Culture - Preliminary NO GROWTH IN 1 DAY Resulted 11/30/17 18:45 Blood Peripheral Anaerobic Blood Culture - Preliminary NO GROWTH IN 1 DAY Resulted 11/30/17 18:45 Nasal Aspirate Influenza Types A,B Antigen (JASON) - Final NEGATIVE FOR FLU A AND B ANTIGEN.... Complete Result Diagram: 12/01/17 0600 12/01/17 0600 Imaging Last Impressions Head CT 11/30/17 1856 Signed Impressions: Service Date/Time: Thursday, November 30, 2017 19:15 - CONCLUSION: 1. Atrophy. 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 3. No acute intracranial abnormality. 4. Chronic paranasal sinus disease. Pablo Sauceda Jr., MD Septic Shock Reassessment Septic shock perfusion: reassessment completed Caprini VTE Risk Assessment Caprini VTE Risk Assessment: Mod/High Risk (score >= 2) VTE Pharm Contraindication: Coagulopathy,INR elevated Caprini Risk Assessment Model Point Value = 1 Point Value = 2 Point Value = 3 Point Value = 5 Age 41-60 Minor surgery BMI > 25 kg/m2 Swollen legs Varicose veins or History of unexplained or recurrent spontaneous Oral contraceptives or hormone replacement Sepsis (< 1 month) Serious lung disease, including pneumonia (< 1 month) Abnormal pulmonary function Acute myocardial infarction Congestive heart failure (< 1 month) History of inflammatory bowel disease Medical patient at bed rest Age 61-74 Arthroscopic surgery Major open surgery (> 45 min) Laparoscopic surgery (> 45 min) Malignancy Confined to bed (> 72 hours) Immobilizing plaster cast Central venous access Age >= 75 History of VTE Family history of VTE Factor V Leiden Prothrombin [id number] Lupus anticoagulant Anticardiolipin antibodies Elevated serum homocysteine Heparin-induced thrombocytopenia Other congenital or acquired thrombophilia Stroke (< 1 month) Elective arthroplasty Hip, pelvis, or leg fracture Acute spinal cord injury (< 1 month) Prophylaxis Regimen Total Risk Factor Score Risk Level Prophylaxis Regimen 0-1 Low Early ambulation 2 Moderate Order ONE of the following: *Sequential Compression Device (SCD) *Heparin 5000 units SQ BID 3-4 Higher Order ONE of the following medications: *Heparin 5000 units SQ TID *Enoxaparin/Lovenox 40 mg SQ daily (WT < 150 kg, CrCl > 30 mL/min) *Enoxaparin/Lovenox 30 mg SQ daily (WT < 150 kg, CrCl > 10-29 mL/min) *Enoxaparin/Lovenox 30 mg SQ BID (WT < 150 kg, CrCl > 30 mL/min) AND/OR *Sequential Compression Device (SCD) 5 or more Highest Order ONE of the following medications: *Heparin 5000 units SQ TID (Preferred with Epidurals) *Enoxaparin/Lovenox 40 mg SQ daily (WT < 150 kg, CrCl > 30 mL/min) *Enoxaparin/Lovenox 30 mg SQ daily (WT < 150 kg, CrCl > 10-29 mL/min) *Enoxaparin/Lovenox 30 mg SQ BID (WT < 150 kg, CrCl > 30 mL/min) AND *Sequential Compression Device (SCD) Assessment and Plan Problem List: (1) Upper respiratory infection, viral ICD Code: J06.9 - Acute upper respiratory infection, unspecified Status: Acute Plan: With fever and the severe weakness episode. Currently resolved. Back to baseline per spouse. Follow-up cultures. Chest x-ray on my review on a different V number and documented by the emergency room team is unremarkable) (2) Dementia ICD Code: F03.90 - Dementia Status: Acute Plan: Currently stable at baseline (3) Hypothyroidism ICD Code: E03.9 - Hypothyroidism Status: Acute Plan: Continue levothyroxine Code Status Full code Kelsey Lemus MD December 01, 2017 12:40
--- NOTE | 2017-12-01 18:27 | EKG ---
Date Performed: 11/30/2017 Time Performed: 19:06:42 PTAGE: 87 years EKG: Sinus rhythm MARKED LEFT AXIS DEVIATION LAFB ABNORMAL ECG PREVIOUS TRACING : 11/29/2015 22.07 Since the previous tracing, no significant change noted DOCTOR: Bon Perez Interpretating Date/Time 12/01/2017 18:26:25
[2017-12-02] VITALS: BP_SYST 150; BP_SYST 157; BP_DIAS 68; BP_DIAS 77; PULSE 70; PULSE 71; RESP 15; RESP 16; TEMP 97; TEMP 97.2; O2SAT 93; O2SAT 99
[2017-12-02 04:00] VITALS: BP 137/81; PULSE 82; RESP 16; TEMP 98; O2SAT 94
[2017-12-02] MEDS: LEVOTHYROXINE SODIUM 88 MCG TAB PO SCH (05:49)
[2017-12-02 08:00] VITALS: BP 143/82; PULSE 81; RESP 20; TEMP 97.6; O2SAT 95
--- NOTE | 2017-12-02 08:42 | HHI.FF ---
Face to Face Verification Diagnosis: (1) Dementia (2) Weakness generalized Physical Therapy Order: Evaluate and Treat, Improve ambulation Home Health Nursing Order: Medical education Nursing assessment with vital signs I have seen patient Prakash Yee on 12/02/17. My clinical findings support the need for the requested home health care services because: Ltd mobility - disease progression Deconditioned w/ increased weakness I certify that my clinical findings support that this patient is homebound because: Impaired cognitive ability/safety Kelsey Lemus MD December 02, 2017 08:42
--- NOTE | 2017-12-02 08:44 | HHI.DS ---
Discharge Summary Admission Date November 30, 2017 at 20:53 Discharge Date: December 02, 2017 Admitting Diagnosis URI --> global weakness & confusion (1) Upper respiratory infection, viral ICD Code: J06.9 - Acute upper respiratory infection, unspecified Status: Acute (2) Dementia ICD Code: F03.90 - Dementia Status: Acute (3) Hypothyroidism ICD Code: E03.9 - Hypothyroidism Status: Acute Procedures None Brief History - From Admission This patient is an 87-year-old gentleman with a history of dementia who comes to the hospital complaining of fever and weakness. He is a coming by his spouse who says acutely for 1 day he had generalized weakness and was unable to get out of the chair. She fell he was weak all over and was recently recovering from a u upper respiratory tract infection which was associated with cough and chest congestion. He had been taken Tylenol. He was somewhat improved but still was not quite himself. Patient came to the hospital for further evaluation and treatment. He was found to have a temperature of 101.7 rectally. Chest x-ray was done (please see alternative V number is the patient' s last name was misspelled on admission). Was not hypotensive or tachypneic and he did not have leukocytosis. CT of the head is unremarkable. Patient was recommended for further evaluation treatment due to fever and possible weakness CBC/BMP: 12/01/17 0600 12/01/17 0600 Significant Findings Laboratory Tests Test 11/30/17 18:40 11/30/17 18:45 11/30/17 20:10 12/01/17 06:00 Red Blood Count 3.89 MIL/MM3 (4.50-5.90) 3.66 MIL/MM3 (4.50-5.90) Hematocrit 37.9 % (39.0-51.0) 35.6 % (39.0-51.0) Mean Corpuscular Hemoglobin 34.2 PG (27.0-34.0) Neutrophils (%) (Auto) 74.4 % (16.0-70.0) Potassium Level 3.4 MEQ/L (3.5-5.1) Estimat Glomerular Filtration Rate 85 ML/MIN (>89) Troponin I LESS THAN 0.02 NG/ML Urine Leukocyte Esterase TRACE (NEG) Hemoglobin 12.0 GM/DL (13.0-17.0) Platelet Count 128 TH/MM3 (150-450) Albumin 3.1 GM/DL (3.4-5.0) Calcium Level 8.4 MG/DL (8.5-10.1) Total Bilirubin 1.6 MG/DL (0.2-1.0) Anion Gap 4 MEQ/L (5-15) Imaging Last Impressions Head CT 11/30/17 0160 Signed Impressions: Service Date/Time: Thursday, November 30, 2017 19:15 - CONCLUSION: 1. Atrophy. 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 3. No acute intracranial abnormality. 4. Chronic paranasal sinus disease. Pablo Sauceda Jr., MD PE at Discharge GENERAL: This is a well-nourished, well-developed patient, in no apparent distress. CARDIOVASCULAR: Regular rate and rhythm without murmurs, gallops, or rubs. RESPIRATORY: Clear to auscultation. Breath sounds equal bilaterally. No wheezes , rales, or rhonchi. GASTROINTESTINAL: Abdomen soft, non-tender, nondistended. Normal active bowel sounds MUSCULOSKELETAL: Extremities without clubbing, cyanosis, or edema. NEURO: Confused at baseline Pt update on day of discharge Patient doing well today. No fevers overnight. Still feels a bit stronger than yesterday. Discharge plans discussed with patient and spouse Hospital Course This patient is a 87-year-old gentleman was seen for recent upper respiratory infection with associated weakness. He did well on monitoring him overnight. No fevers no chills, respiratory status and other vital signs remained stable. Patient will be discharged home to follow-up with his primary care provider. He was seen by physical therapy recommended for home health care physical therapy Pt Condition on Discharge: Good Discharge Disposition: Disch w/ Home Health Serv Discharge Time: <= 30 minutes Discharge Instructions DIET: Follow Instructions for: Heart Healthy Diet Activities you can perform: Regular-No Restrictions Follow up Referrals: PCP Follow-up - 1 Week Continued Medications: Apixaban (Eliquis) 2.5 Mg Tab 2.5 MG PO BID for Blood Clot Prevention, TAB 0 Refills Carvedilol (Carvedilol) 3.125 Mg Tab 3.125 MG PO BID, #60 TAB 0 Refills Cholecalciferol (Vitamin D3) 1,000 Unit Tab 1000 UNITS PO DAILY for Nutritional Supplement, #1 BOTTLE 0 Refills Cyanocobalamin (B12) 1,000 Mcg Tab 1 TAB PO DAILY Fludrocortisone (Fludrocortisone) 0.1 Mg Tab 0.1 MG PO BID, #30 TAB 0 Refills Fluticasone Nasal [place] (Fluticasone Nasal [place]) 50 Mcg/Act Naspr 100 MCG EACH NARE DAILY for Allergy Management, #1 BOTTLE 0 Refills 50 mcg/spray Furosemide (Lasix) 20 Mg Tab 20 MG PO DAILY, #30 TAB 0 Refills Levothyroxine (Levothyroxine) 88 Mcg Tab 88 MCG PO DAILY for Thyroid, #30 TAB 0 Refills Meclizine (Meclizine) 25 Mg Tab 25 MG PO BID, TAB 0 Refills Omeprazole (Omeprazole) 20 Mg Tab 20 MG PO DAILY, #30 TAB 0 Refills Paroxetine (Paroxetine) 10 Mg Tab 5 MG PO DAILY, #30 TAB 0 Refills Potassium Chloride ER (Potassium Chloride ER) 20 Meq Tab 20 MEQ PO DAILY for Electrolyte Replacement, #30 TAB 0 Refills Kelsey Lemus MD December 02, 2017 08:44
[2017-12-02] MEDS: PARoxetine HCL SUSP 20 MG/10 ML UDC PO SCH (09:00)
[2017-12-02] MEDS: SODIUM CHLORIDE 0.9% FLUSH 10 ML FLUSH IV FLUSH SCH (09:00)
[2017-12-02] MEDS: DOCUSATE SODIUM 50 MG/SENNA 8.6 MG TAB PO SCH (09:53)
[2017-12-02] MEDS: FLUDROCORTISONE ACETATE 0.1 MG TAB PO SCH (09:53)
[2017-12-02] MEDS: APIXABAN 2.5 MG TABLET PO SCH (09:54)
[2017-12-02] MEDS: CARVEDILOL 3.125 MG TAB PO SCH (09:54)
[2017-12-02] MEDS: PANTOPRAZOLE SOD 20 MG DELAYED RELEASE TAB PO SCH (09:54)
--- NOTE | 2017-12-10 09:57 | RADRPT ---
EXAM DATE/TIME: 11/30/2017 18:35 CORRECTION Corrected on: December 10, 2017; Corrected Name ANGIE COMPARISON: No previous studies available for comparison. INDICATIONS : Syncope. MEDICAL HISTORY : None. SURGICAL HISTORY : None. ENCOUNTER: Initial ACUITY: 1 day PAIN SCORE: 0/10 LOCATION: Bilateral chest FINDINGS: A single portable frontal view the chest shows interstitial prominence throughout the lungs bilateral ly. There is a 2 cm vague area of nodularity involving the right lung base. No effusions. Heart is no rmal in size. Aorta is calcified. A degenerative thoracic spine. CONCLUSION: 1. Chronic interstitial changes. 2. 2 cm nodular density right lung base. Consider a short term followup PA and lateral view of the est. Pablo Sauceda Jr., MD on November 30, 2017 at 18:50 Board Certified Radiologist. This report was verified electronically.
== END 2017-12-02 10:16 | disposition home health service (06) ==
LOC: PHED 18:03 → PHEDA 20:53 → PHEDH 12-01 00:53 → PH3B 12-01 08:00
PROVIDERS: ADMIT Hospitalist; ATTEND Hospitalist
DX: J06.9 Acute upper respiratory infection, unspecified (principal); F03.90 Unspecified dementia, unspecified severity, without behavioral disturbance, psychotic disturbance, mood disturbance, and anxiety; E03.9 Hypothyroidism, unspecified; I48.91 Unspecified atrial fibrillation; R94.31 Abnormal electrocardiogram [ECG] [EKG]; H91.90 Unspecified hearing loss, unspecified ear; Z86.73 Personal history of transient ischemic attack (TIA), and cerebral infarction without residual deficits; Z82.49 Family history of ischemic heart disease and other diseases of the circulatory system
CPT/HCPCS: 70450; 71045; 80053; 81001; 82140; 82550; 83605; 84443; 84484; 85025; 85610; 87040; 87804; 93005; 96360; 96361; 97162; 99285; G0378; G8987; G8988; J7030; J7040

== ENCOUNTER 2018-06-27 10:35 | Observation (INO) ==
[2018-06-27 11:28] LABS: Baso % (Auto) 0.3 % (0.0-2.0); Eos # (Auto) 0.1 th/mm3 (0.0-0.4); Eos % (Auto) 0.9 % (0.0-4.0); Hematocrit 39.2 % (39.0-51.0); Hemoglobin 13.4 gm/dL (13.0-17.0); Lymph # (Auto) 0.6 th/mm3 (1.0-4.8); Lymph % (Auto) 7.3 % (9.0-44.0); Mean Corpuscular HGB Conc 34.2 % (32.0-36.0); Mean Corpuscular Hemoglobin 33.9 pg (27.0-34.0); Mean Corpuscular Volume 98.9 fL (80.0-100.0); Mean Platelet Volume 7.9 fL (7.0-11.0); Mono # (Auto) 0.2 th/mm3 (0.0-0.9); Mono % (Auto) 1.9 % (0.0-8.0); Neut % (Auto) 89.6 % (16.0-70.0); Platelet Count 160 th/mm3 (150-450); Red Blood Count 3.96 mil/mm3 (4.50-5.90); Red Cell Distribution Width 13.2 % (11.6-17.2); White Blood Count 8.9 th/mm3 (4.0-11.0)
[2018-06-27 11:29] LABS: Chloride 106 meq/L (98-107); Potassium 3.8 meq/L (3.5-5.1); Sodium 141 meq/L (136-145)
[2018-06-27 11:32] LABS: Anion Gap 6 meq/L (5-15); Blood Urea Nitrogen 16 mg/dL (7-18); Calcium 8.4 mg/dL (8.5-10.1); Carbon Dioxide 28.6 meq/L (21.0-32.0); Glucose,Random 106 mg/dL (74-106)
[2018-06-27 11:36] LABS: Glomerular Filtration Rate 57 mL/min (>89)
[2018-06-27 11:50] LABS: Bilirubin,Urine Negative (Negative); Clarity,Urine Clear (Clear); Color,Urine Yellow (Yellw/Straw); Glucose,Urine (UA) Negative (Negative); Leukocyte Esterase,Urine Negative (Negative); Nitrite,Urine Negative (Negative); PH,Urine 6.5 (5.0-8.5); Specific Gravity,Urine 1.015 (1.002-1.035); Urobilinogen,Urine 0.2 mg/dL (Less than 2)
[2018-06-27 11:57] LABS: WBC,Urine 0-5 /hpf (0-5)
[2018-06-27 13:14] LABS: Albumin 3.6 g/dL (3.4-5.0)
[2018-06-27 13:17] LABS: Aspartate Aminotransferase 18 U/L (15-37)
[2018-06-27 13:19] LABS: Total Protein 8.2 g/dL (6.4-8.2)
[2018-06-27 13:21] LABS: Alanine Aminotransferase 15 U/L (12-78)
[2018-06-27 13:24] LABS: Alkaline Phosphatase 72 U/L (45-117)
--- NOTE | 2018-06-27 13:54 | CT ---
EXAM DATE: 06/27/2018 1:31 PM EST AGE/SEX: 87 years / Male INDICATIONS: Altered mental status. CLINICAL DATA: This is the patient's initial encounter. Patient reports that signs and symptoms have been present for 1 day and indicates a pain score of 0/10. MEDICAL/SURGICAL HISTORY: Dementia. Aneurysm, intracranial. Gastroesophageal reflux disease. Hyp ertension. None. RADIATION DOSE: 42.50 CTDI (mGy) COMPARISON: [facility], CT HEAD W/O CONTRAST, 02/13/2018. . TECHNIQUE: CT of the head without contrast. Using automated exposure control and adjustment of the mA and/or kV according to patient size, radiation dose was kept as low as reasonably achievable to ob tain optimal diagnostic quality images. DICOM format image data is available electronically for revi ew and comparison. FINDINGS: The exam is limited secondary to motion artifact which limits the interpretation. Noncontrast axial head CT demonstrates the ventricles to be normal in size and configuration with a normal sulcal patte rn. No acute intracranial hemorrhage, acute cortical infarction, mass or midline shift is seen. Poste rior fossa structures are unremarkable. Bone windows are unremarkable. CONCLUSION: No evidence of acute intracranial pathology. No masses are identified. . Electronically signed by: Last Marin MD 06/27/2018 1:53 PM EST
--- NOTE | 2018-06-27 14:09 | ED ---
HPI General Chief Complaint: Altered Mental Status Stated Complaint: ams Time Seen by Provider: 06/27/18 12:06 Source: patient and family Mode of arrival: ambulatory Limitations: no limitations History of Present Illness HPI narrative: Patient woke up approximately 3:30 AM with significant alteration of mental status with significant confusion and stress. Patient is partially improved however there is still significant residual symptomatology. Patient has history of dementia that is generally maintained. Yesterday patient was following his doctor's orders and elevating his foot and interaction with family members with no difficulty. No significant emotional episodes in the past. Patient was also seen by his doctor for an ulceration to his right anterior tibia and swelling of his leg. Patient was started on antibiotics yesterday. Patient has no other neurologic symptoms. No history of chills or fever. There is no question patient has had significant alteration of his mental status but occurred at approximately 330 this morning. Related Data Home Medications Medication Instructions Recorded Confirmed apixaban [Eliquis] 2.5 mg PO BID 02/13/18 06/27/18 carvedilol 3.125 mg PO BID 02/13/18 06/27/18 cholecalciferol (vitamin D3) 1,000 unit PO DAILY 02/13/18 06/27/18 [Vitamin D3] cyanocobalamin (vitamin B-12) 1,000 mcg PO DAILY 02/13/18 06/27/18 fludrocortisone 0.1 mg PO BID 02/13/18 06/27/18 levothyroxine 88 mcg PO DAILY 02/13/18 06/27/18 meclizine 25 mg PO BID 02/13/18 06/27/18 omeprazole 20 mg PO DAILY 02/13/18 06/27/18 paroxetine HCl 5 mg PO HS 02/13/18 06/27/18 furosemide 20 mg PO DAILY PRN 06/27/18 06/27/18 potassium chloride 20 meq PO DAILY PRN 06/27/18 06/27/18 Allergies Allergy/AdvReac Type Severity Reaction Status Date / Time albuterol AdvReac Mild Heart Verified 06/27/18 10:41 racing Review of Systems ROS: all other systems reviewed are negative FOR[facility] Medical History Medical History Aneurysm (Acute) Dementia (Acute) GERD (gastroesophageal reflux disease) (Acute) Hypertension (Acute) Hypothyroid (Acute) Social History Social History Substance History: No History of Abuse Smoking Status: Former smoker How Often Do You Have a Drink Containing Alcohol: 4 or more times a week Recent Travel in [facility] within the Last 8 Weeks: No Recent Out of Country Travel within the Last 8 Weeks: No Immunization History Tetanus Immunization: Unsure Exam Narrative Exam Narrative: GENERAL: Confused and combative. However responds to family to reduce negative interaction. SKIN: Focused skin assessment warm/dry. HEAD: Atraumatic. Normocephalic. EYES: Pupils equal and round. No scleral icterus. No injection or drainage. ENT: No nasal bleeding or discharge. Mucous membranes pink and moist. NECK: Trachea midline. No JVD. CARDIOVASCULAR: Regular rate and rhythm. No murmur appreciated. RESPIRATORY: No accessory muscle use. Clear to auscultation. Breath sounds equal bilaterally. Crepitant rales in bases GASTROINTESTINAL: Abdomen soft, non-tender, nondistended. Hepatic and splenic margins not palpable. MUSCULOSKELETAL: No obvious deformities. No clubbing. No cyanosis. No edema. Patient has ulcer to dorsum of tibia secondary to skin biopsy PMD. Significant tenderness to calf and right popliteal fossa. Cellulitis to area of ulceration to leg. NEUROLOGICAL: Awake and alert. No obvious cranial nerve deficits. Motor grossly within normal limits. Normal speech. PSYCHIATRIC: Appropriate mood and affect; insight and judgment normal. Course Hospital Course: Patient was presented to hospice at 5 PM. However there was need to do either MRI or CTA Reevaluation(s) Reevaluation #1: Multiple re-evaluations showed the persistence of family or staff to be with patient's at all time due to aggressive and confused state no additional neurologic changes noted Initial Documented Vital Signs Temperature 98.6 F 06/27/18 10:41 Pulse Rate 89 06/27/18 10:41 Respiratory Rate 18 06/27/18 10:41 Blood Pressure 133/85 06/27/18 10:41 Last Documented Vital Signs Temperature 98.9 F 06/27/18 15:40 Pulse Rate 99 H 06/27/18 19:08 Respiratory Rate 18 06/27/18 19:08 Blood Pressure 152/81 H 06/27/18 19:08 Pulse Oximetry 94 L 06/27/18 19:08 Critical Care Time Critical Care Time: Yes Total Critical Care Time: 70 Attestation: Patient reevaluated multiple times throughout visit. Medical Decision Making MDM Narrative Medical decision making narrative: Patient had significant problems of potential thrombophlebitis and also altered mental status secondary to probable CVA. Admitted for observation and further evaluation Medical Screen Exam Complete: Yes Emergency Medical Condition: Yes Medical Records Medical records reviewed: Yes I reviewed the patient's medical records. Lab Data Result diagrams: 06/27/18 11:15 06/27/18 11:15 Lab Results 06/27/18 06/27/18 06/27/18 Range/Units 11:15 11:15 11:15 CBC w Diff Auto diff final WBC 8.9 (4.0-11.0) th/mm3 RBC 3.96 L (4.50-5.90) mil/mm3 Hgb 13.4 (13.0-17.0) gm/dL Hct 39.2 (39.0-51.0) % MCV 98.9 (80.0-100.0) fL MCH 33.9 (27.0-34.0) pg MCHC 34.2 (32.0-36.0) % RDW 13.2 (11.6-17.2) % Plt Count 160 (150-450) th/mm3 MPV 7.9 (7.0-11.0) fL Neut % (Auto) 89.6 H (16.0-70.0) % Lymph % (Auto) 7.3 L (9.0-44.0) % [place] % (Auto) 1.9 (0.0-8.0) % Eos % (Auto) 0.9 (0.0-4.0) % Baso % (Auto) 0.3 (0.0-2.0) % Neut # (Auto) 8.0 H (1.8-7.7) th/mm3 Lymph # (Auto) 0.6 L (1.0-4.8) th/mm3 [place] # (Auto) 0.2 (0.0-0.9) th/mm3 Eos # (Auto) 0.1 (0.0-0.4) th/mm3 Baso # (Auto) 0.0 (0.0-0.2) th/mm3 WBC Differential . Differential Comment . D-Dimer Quant (PE/DVT) (0.00-0.50) mg/L FEU Sodium 141 Cancelled (136-145) meq/L Potassium 3.8 Cancelled (3.5-5.1) meq/L Chloride 106 Cancelled (98-107) meq/L Carbon Dioxide 28.6 Cancelled (21.0-32.0) meq/L Anion Gap 6 Cancelled (5-15) meq/L BUN 16 Cancelled (7-18) mg/dL Creatinine 1.20 Cancelled (0.60-1.30) mg/dL Estimated GFR 57 L Cancelled (>89) mL/min Random Glucose 106 Cancelled (74-106) mg/dL Calcium 8.4 L Cancelled (8.5-10.1) mg/dL Calcium Adj for Albumin Cancelled Magnesium 2.0 Cancelled (1.5-2.5) mg/dL Total Bilirubin 1.2 H Cancelled (0.2-1.0) mg/dL AST 18 Cancelled (15-37) U/L ALT 15 Cancelled (12-78) U/L Alkaline Phosphatase 72 Cancelled (45-117) U/L Troponin I Less than 0.02 L Cancelled (0.02-0.05) ng/mL B-Natriuretic Peptide (0-100) pg/mL Total Protein 8.2 Cancelled (6.4-8.2) g/dL Albumin 3.6 Cancelled (3.4-5.0) g/dL TSH (0.358-3.740) uIU/mL Free T4 (0.76-1.46) ng/dL Ur Collection Type Urine Color (Yellw/Straw) Urine Clarity (Clear) Urine pH (5.0-8.5) Ur Specific [place] (1.002-1.035) Urine Protein (Neg-Trace) mg/dL Urine Glucose (UA) (Negative) mg/dL Urine Ketones (Negative) mg/dL Urine Occult Blood (Negative) Urine Nitrate (Negative) Urine Bilirubin (Negative) Urine Urobilinogen (Less than 2) mg/dL Ur Leukocyte Esterase (Negative) Urine RBC (0-3) /hpf Urine WBC (0-5) /hpf Micro UA Comment Ur Microscopic Review Urine Culture Comments 06/27/18 06/27/18 06/27/18 Range/Units 11:15 11:15 11:40 CBC w Diff WBC (4.0-11.0) th/mm3 RBC (4.50-5.90) mil/mm3 Hgb (13.0-17.0) gm/dL Hct (39.0-51.0) % MCV (80.0-100.0) fL MCH (27.0-34.0) pg MCHC (32.0-36.0) % RDW (11.6-17.2) % Plt Count (150-450) th/mm3 MPV (7.0-11.0) fL Neut % (Auto) (16.0-70.0) % Lymph % (Auto) (9.0-44.0) % [place] % (Auto) (0.0-8.0) % Eos % (Auto) (0.0-4.0) % Baso % (Auto) (0.0-2.0) % Neut # (Auto) (1.8-7.7) th/mm3 Lymph # (Auto) (1.0-4.8) th/mm3 [place] # (Auto) (0.0-0.9) th/mm3 Eos # (Auto) (0.0-0.4) th/mm3 Baso # (Auto) (0.0-0.2) th/mm3 WBC Differential Differential Comment D-Dimer Quant (PE/DVT) (0.00-0.50) mg/L FEU Sodium (136-145) meq/L Potassium (3.5-5.1) meq/L Chloride (98-107) meq/L Carbon Dioxide (21.0-32.0) meq/L Anion Gap (5-15) meq/L BUN (7-18) mg/dL Creatinine (0.60-1.30) mg/dL Estimated GFR (>89) mL/min Random Glucose (74-106) mg/dL Calcium (8.5-10.1) mg/dL Calcium Adj for Albumin Magnesium (1.5-2.5) mg/dL Total Bilirubin (0.2-1.0) mg/dL AST (15-37) U/L ALT (12-78) U/L Alkaline Phosphatase (45-117) U/L Troponin I (0.02-0.05) ng/mL B-Natriuretic Peptide 159 H (0-100) pg/mL Total Protein (6.4-8.2) g/dL Albumin (3.4-5.0) g/dL TSH 1.120 (0.358-3.740) uIU/mL Free T4 1.28 (0.76-1.46) ng/dL Ur Collection Type Cath Urine Color Yellow (Yellw/Straw) Urine Clarity Clear (Clear) Urine pH 6.5 (5.0-8.5) Ur Specific [place] 1.015 (1.002-1.035) Urine Protein Negative (Neg-Trace) mg/dL Urine Glucose (UA) Negative (Negative) mg/dL Urine Ketones Negative (Negative) mg/dL Urine Occult Blood Large H (Negative) Urine Nitrate Negative (Negative) Urine Bilirubin Negative (Negative) Urine Urobilinogen 0.2 (Less than 2) mg/dL Ur Leukocyte Esterase Negative (Negative) Urine RBC 15-50 H (0-3) /hpf Urine WBC 0-5 (0-5) /hpf Micro UA Comment Cath-culture not ind Ur Microscopic Review Microscopic reviewed Urine Culture Comments Cath-cult not ind 06/27/18 Range/Units 14:00 CBC w Diff WBC (4.0-11.0) th/mm3 RBC (4.50-5.90) mil/mm3 Hgb (13.0-17.0) gm/dL Hct (39.0-51.0) % MCV (80.0-100.0) fL MCH (27.0-34.0) pg MCHC (32.0-36.0) % RDW (11.6-17.2) % Plt Count (150-450) th/mm3 MPV (7.0-11.0) fL Neut % (Auto) (16.0-70.0) % Lymph % (Auto) (9.0-44.0) % [place] % (Auto) (0.0-8.0) % Eos % (Auto) (0.0-4.0) % Baso % (Auto) (0.0-2.0) % Neut # (Auto) (1.8-7.7) th/mm3 Lymph # (Auto) (1.0-4.8) th/mm3 [place] # (Auto) (0.0-0.9) th/mm3 Eos # (Auto) (0.0-0.4) th/mm3 Baso # (Auto) (0.0-0.2) th/mm3 WBC Differential Differential Comment D-Dimer Quant (PE/DVT) 3.55 H (0.00-0.50) mg/L FEU Sodium (136-145) meq/L Potassium (3.5-5.1) meq/L Chloride (98-107) meq/L Carbon Dioxide (21.0-32.0) meq/L Anion Gap (5-15) meq/L BUN (7-18) mg/dL Creatinine (0.60-1.30) mg/dL Estimated GFR (>89) mL/min Random Glucose (74-106) mg/dL Calcium (8.5-10.1) mg/dL Calcium Adj for Albumin Magnesium (1.5-2.5) mg/dL Total Bilirubin (0.2-1.0) mg/dL AST (15-37) U/L ALT (12-78) U/L Alkaline Phosphatase (45-117) U/L Troponin I (0.02-0.05) ng/mL B-Natriuretic Peptide (0-100) pg/mL Total Protein (6.4-8.2) g/dL Albumin (3.4-5.0) g/dL TSH (0.358-3.740) uIU/mL Free T4 (0.76-1.46) ng/dL Ur Collection Type Urine Color (Yellw/Straw) Urine Clarity (Clear) Urine pH (5.0-8.5) Ur Specific [place] (1.002-1.035) Urine Protein (Neg-Trace) mg/dL Urine Glucose (UA) (Negative) mg/dL Urine Ketones (Negative) mg/dL Urine Occult Blood (Negative) Urine Nitrate (Negative) Urine Bilirubin (Negative) Urine Urobilinogen (Less than 2) mg/dL Ur Leukocyte Esterase (Negative) Urine RBC (0-3) /hpf Urine WBC (0-5) /hpf Micro UA Comment Ur Microscopic Review Urine Culture Comments Imaging Data Radiologist's impression: Head CT 06/27/18 12:52 CONCLUSION: No evidence of acute intracranial pathology. No masses are identified. . Venous Doppler Study 06/27/18 13:14 CONCLUSION: 1. Limited exam without definitive evidence for right lower extremity DVT. 2. Redemonstration thrombosed right popliteal artery aneurysm. Chest CTA 06/27/18 16:42 CONCLUSION: 1. No pulmonary embolus. 2. Chronic fibroemphysematous changes. No acute infiltrate seen. No pleural effusion or pneumothorax. Discharge Plan Discharge Disposition Patient Disposition: ED Admit(ED Internal Use Only) Discharge Condition Condition: Good Discharge Order Discharge Orders: ED Use Only Admit Order (Routine); Ordered 06/27/18 Ordered By: Marco Wang Physicians Team ED Provider: Marco Wang Primary Care Provider: Jessie Jay Rxs /Orders / Referrals /Forms Prescriptions: No Action furosemide 20 mg Tablet 20 mg PO DAILY PRN (Reason: Edema) RF: 0 potassium chloride 20 mEq Tablet Extended Release 20 meq PO DAILY PRN (Reason: Edema) RF: 0 paroxetine HCl 10 mg Tablet 5 mg PO HS RF: 0 carvedilol 3.125 mg Tablet 3.125 mg PO BID RF: 0 levothyroxine 88 mcg Tablet 88 mcg PO DAILY RF: 0 meclizine 25 mg Tablet 25 mg PO BID RF: 0 omeprazole 20 mg Capsule,Delayed Release(Dr/Ec) 20 mg PO DAILY RF: 0 apixaban [Eliquis] 2.5 mg Tablet 2.5 mg PO BID RF: 0 cyanocobalamin (vitamin B-12) 1,000 mcg Tablet 1,000 mcg PO DAILY RF: 0 fludrocortisone 0.1 mg Tablet 0.1 mg PO BID RF: 0 cholecalciferol (vitamin D3) [Vitamin D3] 1,000 unit Tablet 1,000 unit PO DAILY RF: 0 Discharge Interventions Interventions: Vital Signs Last Done: 06/27/18 18:21 Status ED Status: With Doctor
[2018-06-27 14:57] LABS: Thyroid Stimulating Hormone 1.12 uIU/mL (0.358-3.740)
[2018-06-27] MEDS ORDERED: Sodium Chlor 0.9% Inj 500 ML IV.SIG SCH (15:00)
--- NOTE | 2018-06-27 16:08 | US ---
EXAM DATE: 06/27/2018 4:03 PM EST AGE/SEX: 87 years / Male INDICATIONS: Right leg swelling. CLINICAL DATA: This is the patient's initial encounter. Patient reports that signs and symptoms have been present for 4 - 6 days and indicates a pain score of 8/10. MEDICAL/SURGICAL HISTORY: Gastroesophageal reflux disease. Hypertension. Hypothyroidism. Ane urysm. Dementia. None. COMPARISON: [facility], US LEG VENOUS DOPPLER, RIGHT, 06/25/2018. . TECHNIQUE: Venous ultrasound of both lower extremities was performed from the inguinal ligament to t he proximal calf. Real-time, color Doppler and spectral tracing, compression and augmentation techni ques were used. FINDINGS: Determination is limited due to patient's inability to cooperate with exam. Redemonstratio n of thrombosed right popliteal artery aneurysm. Normal compression of the deep venous system from th e inguinal region to the proximal calf. No echogenic clot is seen. Normal response of the venous syst em to augmentation and respiration. CONCLUSION: 1. Limited exam without definitive evidence for right lower extremity DVT. 2. Redemonstration thrombosed right popliteal artery aneurysm. Electronically signed by: Bolivar Roy MD 06/27/2018 4:07 PM EST
[2018-06-27 17:54] LABS: Free T4 (Free Thyroxine) 1.28 ng/dL (0.76-1.46)
--- NOTE | 2018-06-27 18:25 | CT ---
EXAM DATE: 06/27/2018 6:17 PM EST AGE/SEX: 87 years / Male INDICATIONS: Abnormality on other exam. CLINICAL DATA: This is the patient's initial encounter. Patient reports that signs and symptoms have been present for 1 day and indicates a pain score of 0/10. MEDICAL/SURGICAL HISTORY: Dementia. Gastroesophageal reflux disease. Hypertension. Aneuyrsm. No ne. RADIATION DOSE: 20.97 CTDI (mGy) COMPARISON: [facility], CT THORAX W CONTRAST, 11/29/2015. [facility], US VENOUS DOPPLER LEG RIGHT, 06/27/2018. . TECHNIQUE: Volumetric scanning was performed using a multi-row detector CT scanner during bolus infu karis of 75 ml Omnipaque 350 (iohexol) nonionic water-soluble contrast as a single exam dose. The storm a was post processed with a variety of visualization algorithms including full volume maximum intensi ty projection and sliding thin slab reformation. Using automated exposure control and adjustment of the mA and/or kV according to patient size, radiation dose was kept as low as reasonably achievable t o obtain optimal diagnostic quality images. DICOM format image data is available electronically for review and comparison. FINDINGS: There is no pulmonary embolus. Moderate severity emphysema and chronic interstitial changes. No acute pneumonia demonstrated. No ple ural effusion or pneumothorax. There are scattered mediastinal lymph nodes measuring up to 9 mm in greatest short axis dimension. Coronary artery calcification present. CONCLUSION: 1. No pulmonary embolus. 2. Chronic fibroemphysematous changes. No acute infiltrate seen. No pleural effusion or pneumothorax . Electronically signed by: Alphonse Jones MD 06/27/2018 6:23 PM EST
[2018-06-27] MEDS ORDERED: Bisacodyl 10 MG Supp RECTAL PRN (18:42)
[2018-06-27] MEDS: Sod Chloride 0.9% Inj 1,000 ML IV.CONT SCH (18:48)
[2018-06-28] MEDS: Sod Chloride 0.9% Inj 1,000 ML IV.CONT SCH ×2 (05:19→17:08)
--- NOTE | 2018-06-28 12:20 | P.HPIM ---
History of Present Illness Primary Care Physician: Jessie Jay Chief Complaint: ams History of Present Illness: 87-year-old gentleman with a history of dementia brought in for worsening agitation at home. Patient was having worsening lower extremity edema which has been an ongoing problem off and on, per the family. He awoke in the middle the night with agitation worsening confusion from his baseline dementia. 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 No other complaints of fever nausea vomiting shortness of breath chest pain. 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, stroke PSXhx: Stenting of posterior popliteal aneurysms SOChx: No smoking, no alcohol, lives at home with family, FAMhx: No premature cardiac disease stroke or cancer Review of Systems ROS Unobtainable: unobtainable due to mental status [facility] Medical History Medical History Aneurysm (Acute) Dementia (Acute) GERD (gastroesophageal reflux disease) (Acute) Hypertension (Acute) Hypothyroid (Acute) Social History Social History Substance History: Active Abuse Second Hand Smoke Exposure: No Smoking Status: Never smoker How Often Do You Have a Drink Containing Alcohol: 4 or more times a week Recent Travel in [facility] within the Last 8 Weeks: No Recent Out of Country Travel within the Last 8 Weeks: No Substance Abuse Detail Other: Substance Use Status: Active Route 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 Substance Frequency: daily 2 glasses Last Used: 06/26 Reason for Use: Calm Down and Feels Good Immunization History Tetanus Immunization: Unable to Assess Hx Influenza Vaccine This Season: No Medications and Allergies Allergies Allergy/AdvReac Type Severity Reaction Status Date / Time albuterol AdvReac Mild Heart Verified 06/27/18 10:41 racing Home Medications Medication Instructions Recorded Confirmed Type apixaban [Eliquis] 2.5 mg PO BID 02/13/18 06/27/18 History carvedilol 3.125 mg PO BID 02/13/18 06/27/18 History cholecalciferol (vitamin D3) 1,000 unit PO DAILY 02/13/18 06/27/18 History [Vitamin D3] cyanocobalamin (vitamin B-12) 1,000 mcg PO DAILY 02/13/18 06/27/18 History fludrocortisone 0.1 mg PO BID 02/13/18 06/27/18 History levothyroxine 88 mcg PO DAILY 02/13/18 06/27/18 History meclizine 25 mg PO BID 02/13/18 06/27/18 History omeprazole 20 mg PO DAILY 02/13/18 06/27/18 History paroxetine HCl 5 mg PO HS 02/13/18 06/27/18 History furosemide 20 mg PO DAILY PRN 06/27/18 06/27/18 History potassium chloride 20 meq PO DAILY PRN 06/27/18 06/27/18 History Active Medications: Active Medications Acetaminophen (Tylenol) 650 mg PO Q4H PRN PRN Reason: Headache, fever, pain 1-4 Al Hydroxide/Mg Hydroxide (Milk Of Magnesia Liq) 30 ml PO Q12H PRN PRN Reason: Mild Constipation Bisacodyl (Dulcolax Supp) 10 mg RECTAL DAILY PRN PRN Reason: SEVERE CONSITIPATION Sodium Chloride (Ns Inj) 1,000 mls @ 100 mls/hr IV.CONT .Q10H [facility] Stop: 06/28/18 18:44 Last Admin: 06/28/18 05:19 Dose: 100 mls/hr Lactulose (Lactulose Liq) 30 ml PO DAILY PRN PRN Reason: SEVERE CONSITIPATION Ondansetron HCl (Zofran Inj) 4 mg IV.PUSH Q6H PRN PRN Reason: NAUSEA OR VOMITING Sennosides (Senokot) 17.2 mg PO Q12H PRN PRN Reason: Moderate Constipation Sodium Chloride (Ns Flush) 2 ml IV.FLUSH BID [facility] Last Admin: 06/28/18 08:40 Dose: Not Given Sodium Chloride (Ns Flush) 2 ml IV.FLUSH PRN PRN PRN Reason: FLUSH AFTER USING IV ACCESS Physical Exam Vital signs: Last Vital Signs Temp 97.4 F L 06/28/18 08:00 Pulse 86 06/28/18 08:00 Resp 19 06/28/18 08:00 BP 151/79 H 06/28/18 08:00 Pulse Ox 94 L 06/28/18 08:19 Intake & Output 06/26/18 06/27/18 06/28/18 06/29/18 06:59 06:59 06:59 06:59 Intake Total 1672 / 1672 Output Total 1101 / 1101 Balance 571 / 571 Weight 94.5 kg Narrative: GEN well-developed well-nourished white 87-year-old gentleman who is confused and restless, very hard of hearing, awake alert does not follow commands, HEENT normocephalic atraumatic, Pupils equal reactive, sclerae anicteric, extraocular motion intact, mucosa is moist. posterior pharynx clear, poor dentition no gum lip lesions noted, facial flushing NECK supple no JVD trachea midline thyroid smooth not enlarged ANT CHEST WALL without mass or tenderness to palpation HEART S1-S2 regular without murmur gallops or clicks LUNGS clear to auscultation without wheeze rales or rhonchi , full symmetric expansion BACK exam is no CVA tenderness or mass ABDOMEN soft nondistended positive bowel sounds no guarding rebound rigidity LYMPH NODES no cervical, axillary or inguinal adenopathy noted EXTREMITIES no clubbing cyanosis, positive edema right lower extremity,, peripheral pulses palpable +2, with erythema maculopapular rash right anterior calf NEUROLOGIC cranial nerves II through XII appear grossly intact, strength is 5 out of 5 symmetrical no clonus or rigidity SKIN warm and dry with good turgor, anterior anaya right lower extremity with quarter sized biopsy related wound with eschar, no purulence, no significant drainage, moderate surrounding edema with erythema Results Labs CBC & Chem 7: 06/27/18 11:15 06/27/18 11:[address] 06/27/18 12:52 CONCLUSION: No evidence of acute intracranial pathology. No masses are identified. . Venous Doppler Study 06/27/18 13:14 CONCLUSION: 1. Limited exam without definitive evidence for right lower extremity DVT. 2. Redemonstration thrombosed right popliteal artery aneurysm. Chest CTA 06/27/18 16:42 CONCLUSION: 1. No pulmonary embolus. 2. Chronic fibroemphysematous changes. No acute infiltrate seen. No pleural effusion or pneumothorax. Caprini VTE Risk Assessment Caprini VTE Risk Assessment: Moderate/High Risk (score >= 2) Caprini Risk Assessment Model: Point Value = 1 Point Value = 2 Point Value = 3 Point Value = 5 Age 41-60 Minor surgery BMI > 25 kg/m2 Swollen legs Varicose veins or History of unexplained or recurrent spontaneous Oral contraceptives or hormone replacement Sepsis (< 1 month) Serious lung disease, including pneumonia (< 1 month) Abnormal pulmonary function Acute myocardial infarction Congestive heart failure (< 1 month) History of inflammatory bowel disease Medical patient at bed rest Age 61-74 Arthroscopic surgery Major open surgery (> 45 min) Laparoscopic surgery (> 45 min) Malignancy Confined to bed (> 72 hours) Immobilizing plaster cast Central venous access Age >= 75 History of VTE Family history of VTE Factor V Leiden Prothrombin [id number] Lupus anticoagulant Anticardiolipin antibodies Elevated serum homocysteine Heparin-induced thrombocytopenia Other congenital or acquired thrombophilia Stroke (< 1 month) Elective arthroplasty Hip, pelvis, or leg fracture Acute spinal cord injury (< 1 month) Prophylaxis Regimen: Total Risk Factor Score Risk Level Prophylaxis Regimen 0-1 Low Early ambulation 2 Moderate Order ONE of the following: *Sequential Compression Device (SCD) *Heparin 5000 units SQ BID 3-4 Higher Order ONE of the following medications: *Heparin 5000 units SQ TID *Enoxaparin/Lovenox 40 mg SQ daily (WT < 150 kg, CrCl > 30 mL/min) *Enoxaparin/Lovenox 30 mg SQ daily (WT < 150 kg, CrCl > 10-29 mL/min) *Enoxaparin/Lovenox 30 mg SQ BID (WT < 150 kg, CrCl > 30 mL/min) AND/OR *Sequential Compression Device (SCD) 5 or more Highest Order ONE of the following medications: *Heparin 5000 units SQ TID (Preferred with Epidurals) *Enoxaparin/Lovenox 40 mg SQ daily (WT < 150 kg, CrCl > 30 mL/min) *Enoxaparin/Lovenox 30 mg SQ daily (WT < 150 kg, CrCl > 10-29 mL/min) *Enoxaparin/Lovenox 30 mg SQ BID (WT < 150 kg, CrCl > 30 mL/min) AND *Sequential Compression Device (SCD) Assessment and Plan Plan ACUTE DELIRIUM/acute metabolic encephalopathy superimposed on chronic dementia due to cellulitis of right lower extremity ACUTE CELLULITIS right lower extremity, continue IV antibiotics follow-up cultures blood and wound cultures if there is any drainage, HYPOTHYROIDISM continue Synthroid HYPERTENSION continue home Lasix, Coreg History CVA on apixaban History of popliteal aneurysms post stent repair with thrombosis noted History of ATRIAL FIBRILLATION continue Alfred [place] for rate control DNR - discussed w family, they are interested in hospice, palliative care, but patient is not qualifying w end stage diagnosis at this time. dvt prophylaxis - eliquis anticipate home w c when stable vs rehab. H&P: Quality VTE Deep Vein Thrombosis/Pulmonary Embolism Present on Admission: No
--- NOTE | 2018-06-28 12:55 | P.HPIM ---
History of Present Illness Primary Care Physician: Jessie Jay [facility] Medical History Medical History Aneurysm (Acute) Dementia (Acute) GERD (gastroesophageal reflux disease) (Acute) Hypertension (Acute) Hypothyroid (Acute) Social History Social History Substance History: Active Abuse Second Hand Smoke Exposure: No Smoking Status: Never smoker How Often Do You Have a Drink Containing Alcohol: 4 or more times a week Recent Travel in [facility] within the Last 8 Weeks: No Recent Out of Country Travel within the Last 8 Weeks: No Substance Abuse Detail Other: Substance Use Status: Active Route 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 Substance Frequency: daily 2 glasses Last Used: 06/26 Reason for Use: Calm Down and Feels Good Immunization History Tetanus Immunization: Unable to Assess Hx Influenza Vaccine This Season: No Medications and Allergies Allergies Allergy/AdvReac Type Severity Reaction Status Date / Time albuterol AdvReac Mild Heart Verified 06/27/18 10:41 racing Home Medications Medication Instructions Recorded Confirmed Type apixaban [Eliquis] 2.5 mg PO BID 02/13/18 06/27/18 History carvedilol 3.125 mg PO BID 02/13/18 06/27/18 History cholecalciferol (vitamin D3) 1,000 unit PO DAILY 02/13/18 06/27/18 History [Vitamin D3] cyanocobalamin (vitamin B-12) 1,000 mcg PO DAILY 02/13/18 06/27/18 History fludrocortisone 0.1 mg PO BID 02/13/18 06/27/18 History levothyroxine 88 mcg PO DAILY 02/13/18 06/27/18 History meclizine 25 mg PO BID 02/13/18 06/27/18 History omeprazole 20 mg PO DAILY 02/13/18 06/27/18 History paroxetine HCl 5 mg PO HS 02/13/18 06/27/18 History furosemide 20 mg PO DAILY PRN 06/27/18 06/27/18 History potassium chloride 20 meq PO DAILY PRN 06/27/18 06/27/18 History Active Medications: Active Medications Acetaminophen (Tylenol) 650 mg PO Q4H PRN PRN Reason: Headache, fever, pain 1-4 Al Hydroxide/Mg Hydroxide (Milk Of Magnesia Liq) 30 ml PO Q12H PRN PRN Reason: Mild Constipation Bisacodyl (Dulcolax Supp) 10 mg RECTAL DAILY PRN PRN Reason: SEVERE CONSITIPATION Sodium Chloride (Ns Inj) 1,000 mls @ 100 mls/hr IV.CONT .Q10H [facility] Stop: 06/28/18 18:44 Last Admin: 06/28/18 05:19 Dose: 100 mls/hr Lactulose (Lactulose Liq) 30 ml PO DAILY PRN PRN Reason: SEVERE CONSITIPATION Ondansetron HCl (Zofran Inj) 4 mg IV.PUSH Q6H PRN PRN Reason: NAUSEA OR VOMITING Sennosides (Senokot) 17.2 mg PO Q12H PRN PRN Reason: Moderate Constipation Sodium Chloride (Ns Flush) 2 ml IV.FLUSH BID [facility] Last Admin: 06/28/18 08:40 Dose: Not Given Sodium Chloride (Ns Flush) 2 ml IV.FLUSH PRN PRN PRN Reason: FLUSH AFTER USING IV ACCESS Physical Exam Vital signs: Last Vital Signs Temp 97.2 F L 06/28/18 12:00 Pulse 88 06/28/18 12:00 Resp 20 06/28/18 12:00 BP 128/79 06/28/18 12:00 Pulse Ox 94 L 06/28/18 12:00 Intake & Output 06/26/18 06/27/18 06/28/18 06/29/18 06:59 06:59 06:59 06:59 Intake Total 1672 / 1672 Output Total 1101 / 1101 Balance 571 / 571 Weight 94.5 kg Results Labs CBC & Chem 7: 06/27/18 11:15 06/27/18 11:[address] 06/27/18 12:52 CONCLUSION: No evidence of acute intracranial pathology. No masses are identified. . Venous Doppler Study 06/27/18 13:14 CONCLUSION: 1. Limited exam without definitive evidence for right lower extremity DVT. 2. Redemonstration thrombosed right popliteal artery aneurysm. Chest CTA 06/27/18 16:42 CONCLUSION: 1. No pulmonary embolus. 2. Chronic fibroemphysematous changes. No acute infiltrate seen. No pleural effusion or pneumothorax. Caprini VTE Risk Assessment Caprini Risk Assessment Model: Point Value = 1 Point Value = 2 Point Value = 3 Point Value = 5 Age 41-60 Minor surgery BMI > 25 kg/m2 Swollen legs Varicose veins or History of unexplained or recurrent spontaneous Oral contraceptives or hormone replacement Sepsis (< 1 month) Serious lung disease, including pneumonia (< 1 month) Abnormal pulmonary function Acute myocardial infarction Congestive heart failure (< 1 month) History of inflammatory bowel disease Medical patient at bed rest Age 61-74 Arthroscopic surgery Major open surgery (> 45 min) Laparoscopic surgery (> 45 min) Malignancy Confined to bed (> 72 hours) Immobilizing plaster cast Central venous access Age >= 75 History of VTE Family history of VTE Factor V Leiden Prothrombin [id number] Lupus anticoagulant Anticardiolipin antibodies Elevated serum homocysteine Heparin-induced thrombocytopenia Other congenital or acquired thrombophilia Stroke (< 1 month) Elective arthroplasty Hip, pelvis, or leg fracture Acute spinal cord injury (< 1 month) Prophylaxis Regimen: Total Risk Factor Score Risk Level Prophylaxis Regimen 0-1 Low Early ambulation 2 Moderate Order ONE of the following: *Sequential Compression Device (SCD) *Heparin 5000 units SQ BID 3-4 Higher Order ONE of the following medications: *Heparin 5000 units SQ TID *Enoxaparin/Lovenox 40 mg SQ daily (WT < 150 kg, CrCl > 30 mL/min) *Enoxaparin/Lovenox 30 mg SQ daily (WT < 150 kg, CrCl > 10-29 mL/min) *Enoxaparin/Lovenox 30 mg SQ BID (WT < 150 kg, CrCl > 30 mL/min) AND/OR *Sequential Compression Device (SCD) 5 or more Highest Order ONE of the following medications: *Heparin 5000 units SQ TID (Preferred with Epidurals) *Enoxaparin/Lovenox 40 mg SQ daily (WT < 150 kg, CrCl > 30 mL/min) *Enoxaparin/Lovenox 30 mg SQ daily (WT < 150 kg, CrCl > 10-29 mL/min) *Enoxaparin/Lovenox 30 mg SQ BID (WT < 150 kg, CrCl > 30 mL/min) AND *Sequential Compression Device (SCD) H&P: Quality VTE Deep Vein Thrombosis/Pulmonary Embolism Present on Admission: No
--- NOTE | 2018-06-28 14:03 | P.CONPAL ---
Consult Service: Palliative Care Requesting Physician: Andrei Mendez Reason for Consult: a. To assist with evaluation and management of symptoms including: Confusion, pain b. To assist medical decision maker(s) with: better understanding of current medical conditions; weighing benefits/burdens of medical treatment options; making medical treatment decisions. Primary Care Provider: Jessie Jay History of Present Illness History of Present Illness: This is an 87-year-old male with a past medical history of dementia, CVA, TIA, 4.1 cm AAA, atrial fibrillation and hypertension who was brought to the [facility] emergency room after showing significant alteration of mental status, confusion and agitation at about 3:30 AM on 06/27. He had recently been seen by his physician to evaluate right leg swelling and discomfort and nonhealing wound on the right anaya status post skin cancer removal. He had been started on antibiotics by his PCP due to some erythema, warmth and redness around the right lower extremity. Patient presented as aggressive and combative, however responded well to family. Diagnostic data on admission * EKG shows sinus rhythm * CT of the head without contrast shows no evidence of acute intracranial pathology, no masses. * Right lower extremity ultrasound shows a limited exam without definitive evidence for right lower extremity DVT. Re-demonstration thrombosed right popliteal artery aneurysm. * WBC 8.9, hemoglobin 13.4, hematocrit 39.2, platelets 1, sodium 141, potassium 3.8, BUN 16, creatinine 1.20, calcium 8.4, magnesium 2.0, He is seen in room 8315 trying to eat breakfast with his eyes closed. He is extremely hard of hearing. He is not combative at this evaluation. He is a well-developed, well-nourished elderly male, calm, confused, unable to provide any history. History is obtained from conversations with the family and the chart. Past medical history Hypothyroidism TIA Left cerebellar CVA Dementia Hearing loss Abdominal aortic aneurysm measuring 3.4 x 3.9 cm November 2015, 4.1 on 09/24/2017 Chronic back pain Shingles L1 compression fracture Atrial fibrillation on Eliquis Osteopenia GERD Hypertension Past surgical history Bilateral popliteal aneurysms with surgical repair Left arm surgery secondary to trauma Social history Positive for wine use Smoked 1 pack/day for most of his life, quit around 2008 Family history Father in his early 60s of complications of obesity and diabetes. Mother when patient was 1 years old from childbirth complications. . Function/Cognitive Trajectory: He has been progressively declining. Review of the hospital records indicate that he was able to speak for himself and make his own decisions 3 years ago but has progressively declined both physically and mentally. Family reports that he is fallen at least 10 times recently. He ambulates with a walker and is becoming more sedentary. He has been having periods of agitation. He sometimes recognizes his son frequently does not recognize his daughters. He usually recognizes his . His appetite is declining slowly, but he does continue to be able to eat without signs or symptoms of aspiration. . Review of Systems Patient is nonverbal and unable to provide their own ROS. A 12 part ROS taken as best as possible from medical record and available family. Musculoskeletal: Reports joint pain Neurologic: Reports confusion PMFSH - History History Provided By: Family Member - Medical History Medical History: Medical History (Last Reviewed 06/27/18 @ 19:27 by Marco Wang MD) Aneurysm Dementia GERD (gastroesophageal reflux disease) Hypertension Hypothyroid - Tobacco History Second Hand Smoke Exposure: No Smoking Status: Never smoker - Alcohol History How Often Do You Have a Drink Containing Alcohol: 4 or more times a week - Substance Use History Substance History: Active Abuse - Substance Use Type Other Status: Active Route Used: By Mouth Frequency: daily 2 glasses Last Used: 06/26 Reason for Use: Calm Down, Feels Good - Travel History Recent Travel in the [place] Within the Last 8 Weeks: No Recent Travel Out of the Country Within the Last 8 Weeks: No - Immunization History Tetanus Immunization: Unable to Assess Hx Influenza Vaccine This Season: No Medications and Allergies Active Medications: Active Medications Acetaminophen (Tylenol) 650 mg PO Q4H PRN PRN Reason: Headache, fever, pain 1-4 Al Hydroxide/Mg Hydroxide (Milk Of Magnesia Liq) 30 ml PO Q12H PRN PRN Reason: Mild Constipation Bisacodyl (Dulcolax Supp) 10 mg RECTAL DAILY PRN PRN Reason: SEVERE CONSITIPATION Sodium Chloride (Ns Inj) 1,000 mls @ 100 mls/hr IV.CONT .Q10H SHARYN Stop: 06/28/18 18:44 Last Admin: 06/28/18 05:19 Dose: 100 mls/hr Lactulose (Lactulose Liq) 30 ml PO DAILY PRN PRN Reason: SEVERE CONSITIPATION Ondansetron HCl (Zofran Inj) 4 mg IV.PUSH Q6H PRN PRN Reason: NAUSEA OR VOMITING Sennosides (Senokot) 17.2 mg PO Q12H PRN PRN Reason: Moderate Constipation Sodium Chloride (Ns Flush) 2 ml IV.FLUSH BID SHARYN Last Admin: 06/28/18 08:40 Dose: Not Given Sodium Chloride (Ns Flush) 2 ml IV.FLUSH PRN PRN PRN Reason: FLUSH AFTER USING IV ACCESS Allergies Allergy/AdvReac Type Severity Reaction Status Date / Time albuterol AdvReac Mild Heart Verified 06/27/18 10:41 racing Home Medications Medication Instructions Recorded Confirmed Type apixaban [Eliquis] 2.5 mg PO BID 02/13/18 06/27/18 History carvedilol 3.125 mg PO BID 02/13/18 06/27/18 History cholecalciferol (vitamin D3) 1,000 unit PO DAILY 02/13/18 06/27/18 History [Vitamin D3] cyanocobalamin (vitamin B-12) 1,000 mcg PO DAILY 02/13/18 06/27/18 History fludrocortisone 0.1 mg PO BID 02/13/18 06/27/18 History levothyroxine 88 mcg PO DAILY 02/13/18 06/27/18 History meclizine 25 mg PO BID 02/13/18 06/27/18 History omeprazole 20 mg PO DAILY 02/13/18 06/27/18 History paroxetine HCl 5 mg PO HS 02/13/18 06/27/18 History furosemide 20 mg PO DAILY PRN 06/27/18 06/27/18 History potassium chloride 20 meq PO DAILY PRN 06/27/18 06/27/18 History Advance Directives Living Will: Yes Healthcare Surrogate: Yes (Majority of adult children) Health Care Surrogate Name and Number: Nahid Yee, Fabi Eaton, Rosaura Coy, Mala Kim Power of Wind Tunnel Engineer: Unknown Physical Exam Vital Signs: Vital Signs - 24 hr 06/27/18 12:36 06/27/18 12:49 06/27/18 14:10 Temperature Pulse Rate 88 72 Respiratory Rate 18 18 Blood Pressure 161/94 H 140/80 Pulse Oximetry 96 97 97 06/27/18 15:40 06/27/18 18:21 06/27/18 19:08 Temperature 98.9 F Pulse Rate 92 H 88 99 H Respiratory Rate 18 22 18 Blood Pressure 123/68 161/108 H 152/81 H Pulse Oximetry 95 94 L 94 L 06/27/18 20:00 06/28/18 00:00 06/28/18 03:24 Temperature 98.9 F 99.8 F H Pulse Rate 90 84 Respiratory Rate 20 20 Blood Pressure 138/85 142/78 H Pulse Oximetry 94 L 91 L 97 06/28/18 03:25 06/28/18 04:00 06/28/18 08:00 Temperature 96.9 F L 97.4 F L Pulse Rate 86 Respiratory Rate 19 Blood Pressure 151/79 H Pulse Oximetry 97 93 L 06/28/18 08:19 Temperature Pulse Rate Respiratory Rate Blood Pressure Pulse Oximetry 94 L I&O: Intake & Output 06/26/18 06/27/18 06/28/18 06/29/18 06:59 06:59 06:59 06:59 Intake Total 1672 / 1672 Output Total 1101 / 1101 Balance 571 / 571 Weight 208 lb 5.389 oz Physical Exam: CONSTITUTIONAL/GENERAL: This is an adequately nourished patient, sitting up in bed, in no apparent distress. TUBES/LINES/DRAINS: PIV SKIN: No jaundice, rashes, or lesions. Ecchymoses on upper extremities. Wound on right anterior anaya with warmth and erythema. Skin temperature appropriate. Not diaphoretic. HEAD: Atraumatic. Normocephalic. EYES: Pupils equal and round and reactive. Extraocular motions intact. No scleral icterus. No injection or drainage. Fundi not examined. ENT: Hearing diminished. Nose without bleeding or purulent drainage. Throat without visible erythema, exudates, masses, or lesions. NECK: Trachea midline. Supple, nontender. No palpable thyroid enlargement or nodularity. CARDIOVASCULAR: Regular rate and rhythm without murmurs, gallops, or rubs. No JVD. Peripheral pulses symmetric. RESPIRATORY/CHEST: Symmetric, unlabored respirations. Clear to auscultation. Breath sounds equal bilaterally. No wheezes, rales, or rhonchi. GASTROINTESTINAL: Abdomen soft, non-tender, nondistended. No hepato-splenomegaly , or palpable masses. No guarding. Bowel sounds present. GENITOURINARY: Without palpable bladder distension. MUSCULOSKELETAL: Extremities without clubbing, cyanosis, or edema. No joint tenderness or effusion noted. No calf tenderness. No mottling or clubbing. LYMPHATICS: No palpable cervical or supraclavicular adenopathy. NEUROLOGICAL: Awake, lethargic. Not following commands. Moves all extremities. PSYCHIATRIC: No obvious anxiety/depression. no apparent hallucinations or other psychotic thought process. . Diagnostic Tests Laboratory: Laboratory Results - last 72 hr 06/27/18 06/27/18 06/27/18 11:15 11:15 11:15 CBC w Diff Auto diff final WBC 8.9 RBC 3.96 L Hgb 13.4 Hct 39.2 MCV 98.9 MCH 33.9 MCHC 34.2 RDW 13.2 Plt Count 160 MPV 7.9 Neut % (Auto) 89.6 H Lymph % (Auto) 7.3 L [place] % (Auto) 1.9 Eos % (Auto) 0.9 Baso % (Auto) 0.3 Neut # (Auto) 8.0 H Lymph # (Auto) 0.6 L [place] # (Auto) 0.2 Eos # (Auto) 0.1 Baso # (Auto) 0.0 WBC Differential . Differential Comment . D-Dimer Quant (PE/DVT) Sodium 141 Cancelled Potassium 3.8 Cancelled Chloride 106 Cancelled Carbon Dioxide 28.6 Cancelled Anion Gap 6 Cancelled BUN 16 Cancelled Creatinine 1.20 Cancelled Estimated GFR 57 L Cancelled Random Glucose 106 Cancelled Calcium 8.4 L Cancelled Calcium Adj for Albumin Cancelled Magnesium 2.0 Cancelled Total Bilirubin 1.2 H Cancelled AST 18 Cancelled ALT 15 Cancelled Alkaline Phosphatase 72 Cancelled Troponin I Less than 0.02 L Cancelled B-Natriuretic Peptide Total Protein 8.2 Cancelled Albumin 3.6 Cancelled TSH Free T4 Ur Collection Type Urine Color Urine Clarity Urine pH Ur Specific Era Urine Protein Urine Glucose (UA) Urine Ketones Urine Occult Blood Urine Nitrate Urine Bilirubin Urine Urobilinogen Ur Leukocyte Esterase Urine RBC Urine WBC Micro UA Comment Ur Microscopic Review Urine Culture Comments 06/27/18 06/27/18 06/27/18 11:15 11:15 11:40 CBC w Diff WBC RBC Hgb Hct MCV MCH MCHC RDW Plt Count MPV Neut % (Auto) Lymph % (Auto) [place] % (Auto) Eos % (Auto) Baso % (Auto) Neut # (Auto) Lymph # (Auto) [place] # (Auto) Eos # (Auto) Baso # (Auto) WBC Differential Differential Comment D-Dimer Quant (PE/DVT) Sodium Potassium Chloride Carbon Dioxide Anion Gap BUN Creatinine Estimated GFR Random Glucose Calcium Calcium Adj for Albumin Magnesium Total Bilirubin AST ALT Alkaline Phosphatase Troponin I B-Natriuretic Peptide 159 H Total Protein Albumin TSH 1.120 Free T4 1.28 Ur Collection Type Cath Urine Color Yellow Urine Clarity Clear Urine pH 6.5 Ur Specific Era 1.015 Urine Protein Negative Urine Glucose (UA) Negative Urine Ketones Negative Urine Occult Blood Large H Urine Nitrate Negative Urine Bilirubin Negative Urine Urobilinogen 0.2 Ur Leukocyte Esterase Negative Urine RBC 15-50 H Urine WBC 0-5 Micro UA Comment Cath-culture not ind Ur Microscopic Review Microscopic reviewed Urine Culture Comments Cath-cult not ind 06/27/18 14:00 CBC w Diff WBC RBC Hgb Hct MCV MCH MCHC RDW Plt Count MPV Neut % (Auto) Lymph % (Auto) [place] % (Auto) Eos % (Auto) Baso % (Auto) Neut # (Auto) Lymph # (Auto) [place] # (Auto) Eos # (Auto) Baso # (Auto) WBC Differential Differential Comment D-Dimer Quant (PE/DVT) 3.55 H Sodium Potassium Chloride Carbon Dioxide Anion Gap BUN Creatinine Estimated GFR Random Glucose Calcium Calcium Adj for Albumin Magnesium Total Bilirubin AST ALT Alkaline Phosphatase Troponin I B-Natriuretic Peptide Total Protein Albumin TSH Free T4 Ur Collection Type Urine Color Urine Clarity Urine pH Ur Specific Era Urine Protein Urine Glucose (UA) Urine Ketones Urine Occult Blood Urine Nitrate Urine Bilirubin Urine Urobilinogen Ur Leukocyte Esterase Urine RBC Urine WBC Micro UA Comment Ur Microscopic Review Urine Culture Comments Result Diagrams: 06/27/18 11:15 06/27/18 11:15 Microbiology: Microbiology 06/27/18 13:40 Gram Stain - Final Wound - Leg Imaging: Head CT 06/27/18 12:52 CONCLUSION: No evidence of acute intracranial pathology. No masses are identified. . Venous Doppler Study 06/27/18 13:14 CONCLUSION: 1. Limited exam without definitive evidence for right lower extremity DVT. 2. Redemonstration thrombosed right popliteal artery aneurysm. Chest CTA 06/27/18 16:42 CONCLUSION: 1. No pulmonary embolus. 2. Chronic fibroemphysematous changes. No acute infiltrate seen. No pleural effusion or pneumothorax. Patient/Family Conference Present at Family Conference: Spoke separately with patient's son, Nahid, patient's , Brielle and patient' s daughter, Fabi. They state that the patient has completed a [place] DNR and that the has the copy so CODE STATUS was changed per that decision. State that he has made out a healthcare surrogate naming all 4 of his children as equal decision-makers. Reviewed clinical course, interventions attempted, patient's current clinical status, past medical, social, family, psychosocial history. Reviewed palliative care purpose and focus as well as the below listed items. Provided palliative care contact information. All questions answered to the best of my ability. Plan for meeting at 4:30 PM today for further family discussion. . Family Conference Location: Telephone Issues Discussed: * Palliative care role, purpose, approach * Additional medical, psychosocial, and spiritual history * Patients general health, functional status, and cognitive changes in the months leading up to the current hospitalization * Patient/family understanding of the current medical problems * Patient/family understanding of prognosis * Patients goals of care as best understood from advance directives and/or conversations and/or values * Current medical treatment options and benefits/burdens of those options * Likely scenarios comparing ongoing aggressive care with a transition to comfort measures only * Questions answered to the best of my ability * Palliative care contact information provided Assessment and Plan Pertinent Non-Medical Issues: Psychosocial: He was born in [place] and moved to [place] in 1961. His first some years ago and he subsequently remarried. He has 4 children by his first marriage whom he has made equal healthcare surrogate's. Spiritual: Attends the [facility] Legal: Living will, DNR and healthcare surrogate completed Ethical issues impacting care: None noted. . Important Contacts: Son: Nahid Yee Daughter: Fabi Eaton Daughter: Rosaura Anneliese Daughter: Mala Kim : Brielle (home), (cell) . Prognosis: His prognosis is guarded. There appears to be a progression of his dementia. He does have a Klebsiella infection in the right lower extremity wound with some associated cellulitis. He has been on Eliquis and has fallen approximately 10 times in the family's recent memory. He has been seen in [place] 3 times this year, twice associated with falls, and this visit for altered mental status. Recurrent falls present and elevated risk as he is on Eliquis. He has had a previous stroke and the family reports multiple "mini strokes". Given his advanced age, steadily declining mental status, 4.1 cm AAA and other vascular disorders, he is at increased risk for complications, decline and readmissions. . Code Status: No Code DNR Plan: PLAN: Legal decision maker: The patient is not capacitated for decision-making and it appears unlikely that he will ever regain capacity. He has named all 4 of his children as listed above as equal, joint decision makers. The children also wished to include his , Brielle in the decision-making they are all working together harmoniously. Goals: Comfort oriented. CODE STATUS: DO NOT RESUSCITATE SYMPTOMS: * Confusion: This appears to be progressive dementia. He is oriented to self. Sometimes recognizes family, sometimes not. He has been eating but his oral intake is declining. He was agitated and combative last night, calm this morning. He was found to have a Pseudomonas infection in his right lower extremity wound but no other signs of systemic infection. Urinalysis was clear. Primary medicine is evaluating and may require further testing. No further recommendations at this time * Pain: Complained of right lower extremity pain from wound and what appears to be cellulitis in the right lower extremity. Tylenol is available. At this time he is unable to quantify or qualify his pain. No further recommendations at this time. Palliative care will continue to follow the patient during hospital course as condition evolves, to assist patient/decision-maker with understanding of their medical conditions, weighing benefits/burdens of treatment options, for clarification of goals of treatment. Additionally will assist with any symptoms of palliative concern. . Appreciation Thank you for the opportunity to participate in the care of Prakash Yee. Attestation Attestation: To help prompt me to consider important information that might be impacting today's encounter and assessment, information from prior notes written by myself or my colleagues may have been "brought forward" into today's note. My signature on this note, however, is an attestation that I personally performed the exam, history, and/or decision-making noted today, and, unless otherwise indicated, the interactions with patient, family, and staff as well as the review of records all occurred today. I also attest that the listed assessment and stated plan reflect my best clinical judgment today based on the combination of historical information, prior notes, and today's exam/ interactions. When time spent is documented, it refers only to time spent today by the signer, or if indicated, combined time spent today by collaborating physician/nurse practitioner. .
[2018-06-28] MEDS: Acetaminophen 325 MG Tablet PO PRN (17:09)
[2018-06-28] MEDS ORDERED: Furosemide 20 MG Tablet PO PRN (17:14)
[2018-06-28] MEDS: Ampicillin/Sulbactam Inj 1,500 MG in Sodium Chloride 0.9% Inj 100 ML IV.SIG SCH ×2 (17:42→23:37)
[2018-06-28] MEDS: PARoxetine Liq 20 MG/10 ML UDC PO SCH (20:29)
[2018-06-29] MEDS: Levothyroxine 88 MCG Tablet PO SCH (05:56)
[2018-06-29] MEDS: Ampicillin/Sulbactam Inj 1,500 MG in Sodium Chloride 0.9% Inj 100 ML IV.SIG SCH (05:57)
[2018-06-29] MEDS: Acetaminophen 325 MG Tablet PO PRN ×2 (06:29→22:43)
[2018-06-29 06:34] LABS: Baso % (Auto) 0.2 % (0.0-2.0); Eos # (Auto) 0.3 th/mm3 (0.0-0.4); Eos % (Auto) 5.2 % (0.0-4.0); Hematocrit 38.2 % (39.0-51.0); Hemoglobin 12.9 gm/dL (13.0-17.0); Lymph # (Auto) 1.1 th/mm3 (1.0-4.8); Lymph % (Auto) 20.8 % (9.0-44.0); Mean Corpuscular HGB Conc 33.8 % (32.0-36.0); Mean Corpuscular Hemoglobin 33.2 pg (27.0-34.0); Mean Corpuscular Volume 98.4 fL (80.0-100.0); Mono # (Auto) 0.4 th/mm3 (0.0-0.9); Mono % (Auto) 7.5 % (0.0-8.0); Neut # (Auto) 3.4 th/mm3 (1.8-7.7); Neut % (Auto) 66.3 % (16.0-70.0); Platelet Count 136 th/mm3 (150-450); Red Blood Count 3.88 mil/mm3 (4.50-5.90); Red Cell Distribution Width 13.2 % (11.6-17.2); White Blood Count 5.2 th/mm3 (4.0-11.0)
[2018-06-29 06:45] LABS: Chloride 108 meq/L (98-107); Potassium 3.4 meq/L (3.5-5.1); Sodium 142 meq/L (136-145)
[2018-06-29 06:49] LABS: Anion Gap 7 meq/L (5-15); Blood Urea Nitrogen 10 mg/dL (7-18); Carbon Dioxide 26.6 meq/L (21.0-32.0); Glucose,Random 113 mg/dL (74-106)
[2018-06-29 06:52] LABS: Glomerular Filtration Rate Greater Than 89 mL/min (>89)
[2018-06-29] MEDS: Pantoprazole Sodium 20 MG DR Tablet PO SCH (09:48)
--- NOTE | 2018-06-29 13:38 | P.PNIM ---
Subjective Interval history: 87-year-old gentleman with dementia admitted with acute altered mental status and agitation/delirium due to infection, cellulitis right lower extremity Patient seen and examined, doing better today, case discussed with family at bedside, patient more to his baseline dementia with less agitation Physical Exam Vital signs: Last Vital Signs Temp 96.9 F L 06/29/18 12:00 Pulse 79 06/29/18 12:00 Resp 15 06/29/18 12:00 BP 129/72 06/29/18 12:00 Pulse Ox 94 L 06/29/18 12:00 Intake & Output 06/27/18 06/28/18 06/29/18 06/30/18 06:59 06:59 06:59 06:59 Intake Total 1672 / 1672 2420 / 2420 Output Total 1101 / 1101 800 / 800 Balance 571 / 571 1620 / 1620 Weight 94.5 kg 94.4 kg Narrative: Pleasant well-developed well-nourished 87-year-old white male Patient is confused but more calm today Heart S1-S2 regular Lungs clear bilateral Abdomen soft nondistended positive bowel sounds Extremities right lower extremity less edema, wound scant drainage, erythema improved Urinary Catheter Management Straight: Cath placed during this visit: no Results Labs CBC & Chem 7: 06/29/18 06:01 06/29/18 06:01 Labs: Microbiology 06/28/18 18:20 Blood - Peripheral Aerobic Blood Culture - Preliminary No growth in 1 day 06/28/18 18:20 Blood - Peripheral Anaerobic Blood Culture - Preliminary No growth in 1 day 06/28/18 18:15 Blood - Peripheral Aerobic Blood Culture - Preliminary No growth in 1 day 06/28/18 18:15 Blood - Peripheral Anaerobic Blood Culture - Preliminary No growth in 1 day 06/27/18 13:40 Wound - Leg Gram Stain - Final 06/27/18 13:40 Wound - Leg Wound Culture - Final Pseudomonas aeruginosa Assessment and Plan Plan ACUTE DELIRIUM/acute metabolic encephalopathy superimposed on chronic dementia due to cellulitis of right lower extremity ACUTE CELLULITIS right lower extremity, continue IV antibiotics follow-up cultures blood and wound cultures if there is any drainage, HYPOTHYROIDISM continue Synthroid HYPERTENSION continue home Lasix, Coreg HYPOKALEMIA replace potassium p.o. today History CVA on apixaban History of popliteal aneurysms post stent repair with thrombosis noted continue Eliquis History of ATRIAL FIBRILLATION continue Eliquis, Coreg for rate control DNR - discussed w family, they are interested in hospice, palliative care, but patient is not qualifying w end stage diagnosis at this time. dvt prophylaxis - eliquis Out of bed, consult PT anticipate home w [facility] when stable vs rehab. Progress Note: Quality VTE Deep Vein Thrombosis/Pulmonary Embolism Present on Admission: No
[2018-06-29] MEDS: Piperacil/Tazo 3.375 GM Premix 50 ML IV.SIG SCH ×2 (14:54→18:43)
--- NOTE | 2018-06-29 18:04 | ECG ---
Date Performed: 06/27/2018 Time Performed: 12:57:24 PTAGE: 87 years EKG: Sinus rhythm MARKED LEFT AXIS DEVIATION PATTERN CONSISTENT WITH PULMONARY DISEASE ABNORMAL ECG PREVIOUS TRACING : 11/30/2017 19.06 DOCTOR: Fernando Barahona Interpretating Date/Time 06/29/2018 17:37:36
[2018-06-29] MEDS: PARoxetine Liq 20 MG/10 ML UDC PO SCH (20:32)
[2018-06-30] MEDS: Piperacil/Tazo 3.375 GM Premix 50 ML IV.SIG SCH ×2 (03:28→11:23)
[2018-06-30] MEDS: Levothyroxine 88 MCG Tablet PO SCH (06:21)
[2018-06-30] MEDS: Pantoprazole Sodium 20 MG DR Tablet PO SCH (08:55)
--- NOTE | 2018-06-30 12:28 | P.PNIM ---
Subjective Interval history: 87-year-old gentleman admitted with acute delirium, metabolic encephalopathy due to infection Patient seen and examined, doing well this morning, had to get Ativan last night because of agitation, he was swinging at nurses this morning, he was up all night with agitation. Physical Exam Vital signs: Last Vital Signs Temp 97.6 F 06/30/18 08:00 Pulse 93 H 06/30/18 08:00 Resp 20 06/30/18 08:00 BP 147/93 H 06/30/18 08:00 Pulse Ox 92 L 06/30/18 08:00 Intake & Output 06/28/18 06/29/18 06/30/18 07/01/18 06:59 06:59 06:59 06:59 Intake Total 1672 / 1672 2420 / 2420 220 / 220 50 / 50 Output Total 1101 / 1101 800 / 800 Balance 571 / 571 1620 / 1620 220 / 220 50 / 50 Weight 94.5 kg 94.4 kg 94.3 kg Narrative: Elderly 87-year-old white male who was awake, confused, no distress Heart S1-S2 regular Lungs clear bilateral no wheeze no rhonchi Abdomen soft flat nondistended positive bowel sounds Extremities right lower extremity eschar on the wound dry without significant drainage, cellulitis and erythema improving, edema much improved Urinary Catheter Management Straight: Cath placed during this visit: no Results Labs CBC & Chem 7: 06/29/18 06:01 06/29/18 06:01 Labs: Microbiology 06/28/18 18:20 Blood - Peripheral Aerobic Blood Culture - Preliminary No growth in 2 days 06/28/18 18:20 Blood - Peripheral Anaerobic Blood Culture - Preliminary No growth in 2 days 06/28/18 18:15 Blood - Peripheral Aerobic Blood Culture - Preliminary No growth in 2 days 06/28/18 18:15 Blood - Peripheral Anaerobic Blood Culture - Preliminary No growth in 2 days 06/27/18 13:40 Wound - Leg Gram Stain - Final 06/27/18 13:40 Wound - Leg Wound Culture - Final Pseudomonas aeruginosa Assessment and Plan Plan ACUTE DELIRIUM/acute metabolic encephalopathy superimposed on chronic dementia due to cellulitis of right lower extremity, resolving, mental status back to baseline Patient with agitation, sundowning, in restraints, will require rehab, will get psychiatric consult for recommendations regarding management of agitation due to his dementia. ACUTE CELLULITIS right lower extremity, wound growing Pseudomonas, cellulitis much improved, changed to p.o. Cipro for 5 more days, continue topical Bactroban follow-up with wound care HYPOTHYROIDISM continue Synthroid HYPERTENSION continue home Lasix as needed, Coreg HYPOKALEMIA replaced History CVA, on apixaban History of POPLITEAL ANEURYSMS post stent repair with likely chronic thrombosis noted on ultrasound, continue Eliquis History of ATRIAL FIBRILLATION continue Eliquis, Coreg for rate control DNR - discussed w family, hospice evaluation in progress, patient can follow-up as outpatient if his dementia progresses dvt prophylaxis - eliquis Out of bed, discussed with physical therapy, will require rehab. Disposition: Anticipate discharge to rehab when arranged, consult case management Progress Note: Quality VTE Deep Vein Thrombosis/Pulmonary Embolism Present on Admission: No
[2018-06-30] MEDS: Ciprofloxacin 500 MG Tablet PO SCH ×2 (15:00→21:43)
[2018-06-30] MEDS ORDERED: QUEtiapine 25 MG Tablet PO SCH (21:00)
[2018-06-30] MEDS: PARoxetine Liq 20 MG/10 ML UDC PO SCH (21:41)
[2018-07-01] MEDS: Levothyroxine 88 MCG Tablet PO SCH (05:52)
[2018-07-01] MEDS: Pantoprazole Sodium 20 MG DR Tablet PO SCH (09:57)
[2018-07-01] MEDS: Ciprofloxacin 500 MG Tablet PO SCH (09:57)
--- NOTE | 2018-07-01 12:53 | P.DS ---
DS: Providers Date of admission: 06/27/18 19:22 Primary care physician: Jessie Jay Consults: 06/27/18 18:44 Consult to Palliative Care Routine Consulting Provider: Luis Reeves Reason for Consultation: 87 year old male with a history of Alzheimer's, Afib comes in with acute mental status changes. No acute medical issues identified. This maybe a further decline of dementia. Would appreciate your evaluation and input. Notified:: Service Spoke with:: vickie Date Notified:: 06/27/18 Time Notified:: 22:35 Ordering Provider: KINGSLEY 06/28/18 14:21 HUB Only Consult Order Routine Consulting Provider: Hero Monahan 06/30/18 12:15 Consult to Psychiatry Routine Consulting Provider: Ovidio Castellano Reason for Consultation: dementia w agitation behavioral disorder Notified:: Office Spoke with:: HEIDI Date Notified:: 06/30/18 Time Notified:: 12:23 Ordering Provider: RADHA 07/01/18 09:53 HUB Only Consult Order Routine Consulting Provider: Hero Monahan Brief History from admission: 87-year-old gentleman with a history of dementia brought in for worsening agitation at home. Patient was having worsening lower extremity edema which has been an ongoing problem off and on, per the family. He awoke in the middle the night with agitation worsening confusion from his baseline dementia. 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 No other complaints of fever nausea vomiting shortness of breath chest pain. 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 Wound culture of right lower extremity grew Pseudomonas, antibiotics were adjusted, and he had significant improvement of cellulitis and edema of his lower extremity. Patient's mentation was a bit improved however but he was still having significant episodes of agitation requiring sedation, and soft restraints. Psychiatry was consulted to assist with management, patient was otherwise clinically stable for discharge to rehab however due to patient's difficulty with agitation and confusion, patient was swinging at nurses, not sleeping well, not following commands, psychiatry recommended a Jackson act and transfer to geriatric psychiatric unit. Recommendations were discussed with family. Patient was stable for discharge to accepting psychiatric facility. Time Spent with Patient Total time spent providing and/or coordinating discharge services: Greater than 30 minutes Status at Discharge Functional status at discharge: uses cane/walker Overall status at discharge: patient is not back to baseline Quality: VTE Deep Vein Thrombosis/Pulmonary Embolism Present on Admission: No Exam Narrative Exam Narrative: Elderly 87-year-old white gentleman who is awake alert, very forgetful, currently pleasant with family at bedside, very hard of hearing Heart S1-S2 regular with occasional ectopy Lungs clear bilateral no wheeze no rhonchi Abdomen soft nondistended positive bowel sounds Extremities no clubbing, right anterior anaya with eschar no surrounding erythema or exudate, significant improvement of erythema and edema Results Labs on day of discharge: Preliminary micro results at discharge 06/28/18 18:20 Aerobic Blood Culture - Preliminary Blood - Peripheral No growth in 3 days Anaerobic Blood Culture - Preliminary No growth in 3 days 06/28/18 18:15 Aerobic Blood Culture - Preliminary Blood - Peripheral No growth in 3 days Anaerobic Blood Culture - Preliminary No growth in 3 days Impressions ITS Impressions Head CT 06/27/18 12:52 CONCLUSION: No evidence of acute intracranial pathology. No masses are identified. . Venous Doppler Study 06/27/18 13:14 CONCLUSION: 1. Limited exam without definitive evidence for right lower extremity DVT. 2. Redemonstration thrombosed right popliteal artery aneurysm. Chest CTA 06/27/18 16:42 CONCLUSION: 1. No pulmonary embolus. 2. Chronic fibroemphysematous changes. No acute infiltrate seen. No pleural effusion or pneumothorax. Discharge Plan Discharge Disposition Patient Disposition: 64 Disc To [facility] Discharge Condition Condition: Good Discharge Order Discharge Orders: Discharge Order (Routine); Ordered 07/01/18 Ordered By: Ely Mcleod Physicians Team Primary Care Provider: Jessie Jay Attending Provider: Ely Mcleod Other Providers: Luis Reeves ; Hero Monahan ; Ovidio Castellano Rxs /Orders / Referrals /Forms Prescriptions: New ciprofloxacin HCl 500 mg Tablet 500 mg PO Q12HR Qty: 10 RF: 0 Lactobacillus acidoph-L.bulgar [Floranex] 100 million cell Granules In Packet 1 gm PO TID Qty: 30 RF: 0 mupirocin 2 % Ointment 1 applicatio Topical BID Qty: 15 RF: 0 multivitamin with folic acid [Thera] 400 mcg Tablet 1 tab PO DAILY Qty: 30 RF: 0 Continue furosemide 20 mg Tablet 20 mg PO DAILY PRN (Reason: Edema) RF: 0 potassium chloride 20 mEq Tablet Extended Release 20 meq PO DAILY PRN (Reason: Edema) RF: 0 paroxetine HCl 10 mg Tablet 5 mg PO HS RF: 0 carvedilol 3.125 mg Tablet 3.125 mg PO BID RF: 0 levothyroxine 88 mcg Tablet 88 mcg PO DAILY RF: 0 meclizine 25 mg Tablet 25 mg PO BID RF: 0 omeprazole 20 mg Capsule,Delayed Release(Dr/Ec) 20 mg PO DAILY RF: 0 apixaban [Eliquis] 2.5 mg Tablet 2.5 mg PO BID RF: 0 cyanocobalamin (vitamin B-12) 1,000 mcg Tablet 1,000 mcg PO DAILY RF: 0 fludrocortisone 0.1 mg Tablet 0.1 mg PO BID RF: 0 cholecalciferol (vitamin D3) [Vitamin D3] 1,000 unit Tablet 1,000 unit PO DAILY RF: 0 Referrals: Ovidio Castellano MD [Physician] - See Instructions ( Please call the physician's office to book the appointment to be seen within [1 wk].) Jessie Jay MD [Primary Care Provider] - See Instructions Status ED Status: Left Department
--- NOTE | 2018-07-01 13:39 | P.CONPSY ---
Provisional Diagnosis Admission Date: June 27, 2018 19:22 [place].: Dementia with behavioral disturbances History of Present Illness Service: Medicine Primary Care Provider: Jessie Jay Chief Complaint: ams History of Present Illness: This is an 87-year-old man, domiciled his in [place], retired , with a psychiatric history of dementia, depression, but no previous psychiatric hospitalizations, no previous suicidal attempts, he has been in Seroquel 25 mg twice a day for behavioral control, Paxil 5 mg, with a past medical history of CVA, TIA, 4.1 cm AAA, atrial fibrillation and hypertension who was brought to the [place] emergency room after showing significant alteration of mental status, confusion and agitation at about 3:30 AM on 06/27. He had recently been seen by his physician to evaluate right leg swelling and discomfort and nonhealing wound on the right anaya status post skin cancer removal. He had been started on antibiotics by his PCP due to some erythema, warmth and redness around the right lower extremity. Patient presented as aggressive and combative, however responded well to family. EKG shows sinus rhythm, QTc is 428.CT of the head without contrast shows no evidence of acute intracranial pathology, no masses. WBC 8.9, hemoglobin 13.4, hematocrit 39.2, platelets 1, sodium 141, potassium 3.8, BUN 16, creatinine 1.20, calcium 8.4, magnesium 2.0. Chart has been reviewed, patient was discussed with primary medical team. Collateral information from her family also obtained. On my psychiatric evaluation this morning the patient is found agitated, trying to get out of the bed, stating that he needs to go home today and he needs help. The patient is very difficult and extremely hard of hearing. He cannot even answer his name. He seems to be quite confused, completely disoriented and unable to provide any meaningful information for the psychiatric assessment at the moment. However I spoke with Fabi Briscoe, his daughter, and she has tells me that the patient has been recently agitated, at times verbally hostile and aggressive and very confused. She tells me that this is not characteristic in her father, he has dementia, but he usually recognizes his family, is able to be independent in taking showers, walking in the house, getting dressed, recently has been not doing this. They are very afraid of his safety and the safety of her mother due his Mental status and his agitation. The family has agreed that the patient should be admitted in a psychiatric millan to be helped to calm down Past psychiatric history Dementia, depression, no hospitalizations, no suicide attempts Past medical history Hypothyroidism TIA Left cerebellar CVA Hearing loss Abdominal aortic aneurysm measuring 3.4 x 3.9 cm November 2015, 4.1 on 09/24/2017 Chronic back pain Shingles L1 compression fracture Atrial fibrillation on Eliquis Osteopenia GERD Hypertension Past surgical history Bilateral popliteal aneurysms with surgical repair Left arm surgery secondary to trauma Social history The patient was born and raised in [place], domiciled in [place] with his , retired, his highest level of education is high school Substances: Positive for wine use Smoked 1 pack/day for most of his life, quit around 2008 Family history Father in his early 60s of complications of obesity and diabetes. Mother when patient was 1 years old from childbirth complications. Review of Systems All other systems reviewed negative except as stated in HPI Psychiatric: Reports confusion, Reports irritability, Reports paranoia PMFSH - History History Provided By: Family Member - Medical History Medical History: Medical History (Last Reviewed 06/30/18 @ 07:13 by Bishop Modi) Aneurysm Dementia GERD (gastroesophageal reflux disease) Hypertension Hypothyroid - Tobacco History Second Hand Smoke Exposure: No Smoking Status: Never smoker - Alcohol History How Often Do You Have a Drink Containing Alcohol: 4 or more times a week - Substance Use History Substance History: Active Abuse - Substance Use Type Other Status: Active Route Used: By Mouth Frequency: daily 2 glasses Last Used: 06/26 Reason for Use: Calm Down, Feels Good - Travel History Recent Travel in the [place] Within the Last 8 Weeks: No Recent Travel Out of the Country Within the Last 8 Weeks: No - Immunization History Tetanus Immunization: Unable to Assess Hx Influenza Vaccine This Season: No Medications and Allergies Active Medications: Active Medications Acetaminophen (Tylenol) 650 mg PO Q4H PRN PRN Reason: Headache, fever, pain 1-4 Last Admin: 06/29/18 22:43 Dose: 650 mg Al Hydroxide/Mg Hydroxide (Milk Of Magnesia Liq) 30 ml PO Q12H PRN PRN Reason: Mild Constipation Apixaban (Eliquis) 2.5 mg PO BID SHARYN Last Admin: 07/01/18 09:57 Dose: 2.5 mg Bisacodyl (Dulcolax Supp) 10 mg RECTAL DAILY PRN PRN Reason: SEVERE CONSITIPATION Carvedilol (Coreg) 3.125 mg PO BID [facility] Last Admin: 07/01/18 09:57 Dose: 3.125 mg Ciprofloxacin HCl (Cipro) 500 mg PO Q12HR [facility] Last Admin: 07/01/18 09:57 Dose: 500 mg Cyanocobalamin (Vitamin B12) 1,000 mcg PO DAILY [facility] Last Admin: 07/01/18 09:57 Dose: 1,000 mcg Fludrocortisone Acetate (Florinef) 0.1 mg PO BID [facility] Last Admin: 07/01/18 09:57 Dose: 0.1 mg Furosemide (Lasix) 20 mg PO DAILY PRN PRN Reason: SEE LABEL COMMENTS Lactobacillus Acidophilus (Lactinex Pkt) 1 gm PO TID [facility] Last Admin: 07/01/18 09:58 Dose: 1 gm Lactulose (Lactulose Liq) 30 ml PO DAILY PRN PRN Reason: SEVERE CONSITIPATION Levothyroxine Sodium (Synthroid) 88 mcg PO DAILY@0600 [facility] Last Admin: 07/01/18 05:52 Dose: 88 mcg Meclizine HCl (Antivert) 25 mg PO BID [facility] Last Admin: 07/01/18 10:06 Dose: 25 mg Multivitamins (Theragran) 1 tab PO DAILY [facility] Last Admin: 07/01/18 09:57 Dose: 1 tab Mupirocin (Bactroban 2% Oint) 1 applicatio TOPICAL BID [facility] Last Admin: 07/01/18 09:57 Dose: 1 applicatio Ondansetron HCl (Zofran Inj) 4 mg IV.PUSH Q6H PRN PRN Reason: NAUSEA OR VOMITING Pantoprazole Sodium (Protonix) 20 mg PO DAILY [facility] Last Admin: 07/01/18 09:57 Dose: 20 mg Paroxetine HCl (Paxil Liq) 5 mg PO [facility] Last Admin: 06/30/18 21:41 Dose: 5 mg Potassium Chloride (K-Dur) 20 meq PO DAILY PRN PRN Reason: SEE LABEL COMMENTS Quetiapine Fumarate (Seroquel) 25 mg PO HS [facility] Last Admin: 06/30/18 21:44 Dose: 25 mg Sennosides (Senokot) 17.2 mg PO Q12H PRN PRN Reason: Moderate Constipation Sodium Chloride (Ns Flush) 2 ml IV.FLUSH BID [facility] Last Admin: 07/01/18 10:07 Dose: 2 ml Sodium Chloride (Ns Flush) 2 ml IV.FLUSH PRN PRN PRN Reason: FLUSH AFTER USING IV ACCESS Vitamin D (Vitamin D3) 1,000 unit PO DAILY [facility] Last Admin: 07/01/18 09:57 Dose: 1,000 unit Allergies Allergy/AdvReac Type Severity Reaction Status Date / Time albuterol AdvReac Mild Heart Verified 06/27/18 10:41 racing Home Medications Medication Instructions Recorded Confirmed Type apixaban [Eliquis] 2.5 mg PO BID 02/13/18 06/27/18 History carvedilol 3.125 mg PO BID 02/13/18 06/27/18 History cholecalciferol (vitamin D3) 1,000 unit PO DAILY 02/13/18 06/27/18 History [Vitamin D3] cyanocobalamin (vitamin B-12) 1,000 mcg PO DAILY 02/13/18 06/27/18 History fludrocortisone 0.1 mg PO BID 02/13/18 06/27/18 History levothyroxine 88 mcg PO DAILY 02/13/18 06/27/18 History meclizine 25 mg PO BID 02/13/18 06/27/18 History omeprazole 20 mg PO DAILY 02/13/18 06/27/18 History paroxetine HCl 5 mg PO HS 02/13/18 06/27/18 History furosemide 20 mg PO DAILY PRN 06/27/18 06/27/18 History potassium chloride 20 meq PO DAILY PRN 06/27/18 06/27/18 History Exam Vital signs: Vital Signs 06/30/18 19:35 06/30/18 20:00 07/01/18 00:00 Temperature 97.8 F 96.5 F L Pulse Rate 80 84 Respiratory Rate 18 16 Blood Pressure 143/81 H 135/73 Pulse Oximetry 93 L 92 L 94 L 07/01/18 08:00 07/01/18 11:46 Temperature 96.8 F L 98.3 F Pulse Rate 75 82 Respiratory Rate 18 18 Blood Pressure 140/90 156/79 H Pulse Oximetry 95 95 Intake & Output 06/30/18 07/01/18 07/01/18 18:59 06:59 18:59 Intake Total 1475 / 1475 0 / 0 Output Total 200 / 200 250 / 250 Balance 1275 / 1275 -250 / -250 Weight 91 kg Intake: IV 50 / 50 Zosyn 3.375 GM Premix 50 ML @ 50 / 50 100 mls/hr IV.SIG Q8H SHARYN Rx#: [id number] Oral 1425 / 1425 0 / 0 Output: Urine 200 / 200 250 / 250 Other: # Urine Diapers 4 Date of Last Bowel Movement 06/29/18 06/29/18 # Bowel Movements 0 - Constitutional moderate distress Mental Status Examination Appearance: Disheveled Consciousness: Alert Orientation: Person Motor Activity: Normal gait Speech: Unremarkable Language: Adequate Fund of Knowledge: Adequate Attention and Concentration: Adequate Memory: Unremarkable Mood: Oppositional Affect: Irritable Thought Process & Associations: Loose associations Thought Content: Bizarre thinking Hallucination Type: Visual Delusion Type: Other Suicidal Ideation: No Suicidal Plan: No Suicidal Intention: No Homicidal Ideation: No Homicidal Plan: No Homicidal Intention: No Insight: Poor Judgment: Poor Assessment and Plan - Assessment (1) Dementia Code(s): F03.90 - Unspecified dementia without behavioral disturbance Status: Acute (2) Dementia with behavioral disturbance Code(s): F03.91 - Unspecified dementia with behavioral disturbance Status: Acute - Plan Plan: On psychiatric evaluation today patient presents agitated, disorganized, tangential, unable to provide any meaningful information for the psychiatric assessment. As per conversation with medical team and nurse also by conversation with family members, the patient has been very agitated, paranoid, having visual hallucinations difficult to redirect. The patient is now medically clear. Family are afraid of taking him back home in this condition. He has a psychiatric history of dementia, but no prepsychotic hospitalizations, no previous suicidal attempts. Patient benefit of psychiatric admission for stabilization and safety. Okay with Seroquel 25 mg twice daily. Add Haldol 1- 2 mg IM every 8 hours as needed severe agitation. Transfer to 2500 unit. Justification for Continued Inpatient Stay: To be admitted in psychiatry.
--- NOTE | 2018-07-01 16:20 | P.PNPAL ---
Reason for Visit Reason for visit: a. To assist with evaluation and management of symptoms including: Confusion, agitation b. To assist medical decision maker(s) with: better understanding of current medical conditions; weighing benefits/burdens of medical treatment options; making medical treatment decisions. Subjective Subjective/Interval History: This is an 87-year-old male with a past medical history of dementia, CVA, TIA, 4.1 cm AAA, atrial fibrillation and hypertension who was brought to the [place] emergency room after showing significant alteration of mental status, confusion and agitation at about 3:30 AM on 06/27. He had recently been seen by his physician to evaluate right leg swelling and discomfort and nonhealing wound on the right anaya status post skin cancer removal. He had been started on antibiotics by his PCP due to some erythema, warmth and redness around the right lower extremity. Patient presented as aggressive and combative, however responded well to family. Patient seen today for follow-up of confusion, agitation and to assist family in goals of medical treatment. Patient remains confused and at times is unable to tell you his name. He is not oriented to place time or purpose. He sometimes recognizes family, sometimes not. He is extremely hard of hearing and may have some difficulty understanding questions due to that. His confusion is worsening, constant, moderate to severe, with no exacerbating or relieving factors. He does have a baseline dementia which appears to have worsened abruptly over the past few weeks. Patient remains agitated and has required wrist restraints. He has been striking out at the staff and has been verbally hostile and aggressive. He is presenting as paranoid with visual hallucinations and difficult to redirect. He had been receiving Seroquel 25 mg twice daily however due to his continued agitation and increasing violence, Haldol 1-2 mg IM every 8 hours as needed for severe agitation added. He was evaluated by psychiatry and has been discharged medically to be transferred to the 2500 unit for further behavioral stabilization. . Family/Friend Interactions: No family is at bedside today. Spoke with patient's daughter, Fabi Eaton, and advised her that when the patient is discharged from the hospital that palliative care cannot follow without a new consultation. She stated that she would request a palliative care consultation from the psychiatrist to continue palliative care support. . Advance Directives Health Care Surrogate Name and Number: Nahid Yee, Fabi Eaton, Rosaura Mala Coy Objective Vital Signs: Vital Signs 06/30/18 19:35 06/30/18 20:00 07/01/18 00:00 Temperature 97.8 F 96.5 F L Pulse Rate 80 84 Respiratory Rate 18 16 Blood Pressure 143/81 H 135/73 Pulse Oximetry 93 L 92 L 94 L 07/01/18 08:00 07/01/18 11:46 Temperature 96.8 F L 98.3 F Pulse Rate 75 82 Respiratory Rate 18 18 Blood Pressure 140/90 156/79 H Pulse Oximetry 95 95 Intake & Output 06/30/18 07/01/18 07/01/18 18:59 06:59 18:59 Intake Total 1475 / 1475 0 / 0 Output Total 200 / 200 250 / 250 Balance 1275 / 1275 -250 / -250 Weight 200 lb 9.93 oz Intake: IV 50 / 50 Zosyn 3.375 GM Premix 50 ML @ 50 / 50 100 mls/hr IV.SIG Q8H SHARYN Rx#: [id number] Oral 1425 / 1425 0 / 0 Output: Urine 200 / 200 250 / 250 Other: # Urine Diapers 4 Date of Last Bowel Movement 06/29/18 06/29/18 # Bowel Movements 0 Physical Exam: CONSTITUTIONAL/GENERAL: This is an adequately nourished patient, lying in bed, in no apparent distress. TUBES/LINES/DRAINS: PIV SKIN: No jaundice, rashes, or lesions. Ecchymoses on upper extremities. Wound on right anterior anaya with decreased warmth and erythema. Skin temperature appropriate. Not diaphoretic. NECK: Trachea midline. Supple, nontender. No palpable thyroid enlargement or nodularity. CARDIOVASCULAR: Regular rate and rhythm with 2/6 systolic ejection murmurs, no gallops, or rubs. No JVD. Peripheral pulses symmetric. RESPIRATORY/CHEST: Symmetric, unlabored respirations. Clear to auscultation. Breath sounds equal bilaterally. No wheezes, rales, or rhonchi. GASTROINTESTINAL: Abdomen soft, non-tender, nondistended. No hepato-splenomegaly , or palpable masses. No guarding. Bowel sounds present. GENITOURINARY: Without palpable bladder distension. MUSCULOSKELETAL: Extremities without clubbing, cyanosis, or edema. No joint tenderness or effusion noted. No calf tenderness. No mottling or clubbing. NEUROLOGICAL: Arousable, lethargic. Not following commands. Moves all extremities. PSYCHIATRIC: Some agitation overnight, questionable hallucinations. . Diagnostic Tests Laboratory: Laboratory Results - last 72 hr 06/29/18 06/29/18 06:01 06:01 CBC w Diff Auto diff final WBC 5.2 RBC 3.88 L Hgb 12.9 L Hct 38.2 L MCV 98.4 MCH 33.2 MCHC 33.8 RDW 13.2 Plt Count 136 L MPV 8.0 Neut % (Auto) 66.3 Lymph % (Auto) 20.8 [place] % (Auto) 7.5 Eos % (Auto) 5.2 H Baso % (Auto) 0.2 Neut # (Auto) 3.4 Lymph # (Auto) 1.1 [place] # (Auto) 0.4 Eos # (Auto) 0.3 Baso # (Auto) 0.0 WBC Differential . Differential Comment . Sodium 142 Potassium 3.4 L Chloride 108 H Carbon Dioxide 26.6 Anion Gap 7 BUN 10 Creatinine 0.80 Estimated GFR Greater than 89 Random Glucose 113 H Calcium 8.0 L Result Diagrams: 06/29/18 06:01 06/29/18 06:01 Microbiology: Microbiology 06/28/18 18:20 Aerobic Blood Culture - Preliminary Blood - Peripheral No growth in 3 days Anaerobic Blood Culture - Preliminary No growth in 3 days 06/28/18 18:15 Aerobic Blood Culture - Preliminary Blood - Peripheral No growth in 3 days Anaerobic Blood Culture - Preliminary No growth in 3 days 06/27/18 13:40 Gram Stain - Final Wound - Leg Wound Culture - Final Pseudomonas aeruginosa Imaging: ITS Impressions Head CT 06/27/18 12:52 CONCLUSION: No evidence of acute intracranial pathology. No masses are identified. . Venous Doppler Study 06/27/18 13:14 CONCLUSION: 1. Limited exam without definitive evidence for right lower extremity DVT. 2. Redemonstration thrombosed right popliteal artery aneurysm. Chest CTA 06/27/18 16:42 CONCLUSION: 1. No pulmonary embolus. 2. Chronic fibroemphysematous changes. No acute infiltrate seen. No pleural effusion or pneumothorax. Assessment and Plan Pertinent Non-Medical Issues: Psychosocial: He was born in [place] and moved to [place] in 1961. His first some years ago and he subsequently remarried. He has 4 children by his first marriage whom he has made equal healthcare surrogate's. Spiritual: Attends the [employer] Legal: Living will, DNR and healthcare surrogate completed Ethical issues impacting care: None noted. . Important Contacts: Son: Nahid Yee Daughter: Fabi Eaton Daughter: Rosaura Coy Daughter: Mala Kim : Brielle (home), (cell) . Prognosis: His prognosis is guarded. There appears to be a progression of his dementia. He does have a Klebsiella infection in the right lower extremity wound with some associated cellulitis. He has been on Eliquis and has fallen approximately 10 times in the family's recent memory. He has been seen in [place] 3 times this year, twice associated with falls, and this visit for altered mental status. Recurrent falls present and elevated risk as he is on Eliquis. He has had a previous stroke and the family reports multiple "mini strokes". Given his advanced age, steadily declining mental status, 4.1 cm AAA and other vascular disorders, he is at increased risk for complications, decline and readmissions. . Code Status: No Code DNR Plan: PLAN: Legal decision maker: The patient is not capacitated for decision-making and it appears unlikely that he will ever regain capacity. He has named all 4 of his children as listed above as equal, joint decision makers. The children also wished to include his , Brielle in the decision-making they are all working together harmoniously. Goals: Comfort oriented. CODE STATUS: DO NOT RESUSCITATE SYMPTOMS: * Confusion: This appears to be progressive dementia. It is difficult to determine if he is even oriented to himself as he cannot tell you his name. Sometimes recognizes family, sometimes not. He has been eating but his oral intake is declining. He was agitated and combative overnight. He was found to have a Pseudomonas infection in his right lower extremity wound but no other signs of systemic infection. Blood cultures have remained negative. Urinalysis was clear. He was pleasant and interactive with family on Sunday evening but was combative and agitated through the weekend. Psychiatry has been consulted. * Agitation: Striking out at staff, appears to be hallucinating. Intermittently requiring restraints. Minimal improvement on Seroquel 25 mg p.o. twice daily. Per psychiatry's evaluation, he is appropriate for inpatient psychiatric admission and will be transferred to the 2500 unit for stabilization. Discussed with family that this is considered a discharge from the hospital and readmission to a different hospital and if they wish the palliative care team to continue to follow for support and information, a new consultation will be needed. Per my discussion with his daughter, Fabi, she will request palliative care to continue following once he is admitted to [facility] unit. Palliative care will continue to follow the patient during hospital course as condition evolves, to assist patient/decision-maker with understanding of their medical conditions, weighing benefits/burdens of treatment options, for clarification of goals of treatment. Additionally will assist with any symptoms of palliative concern. . Attestation Attestation: To help prompt me to consider important information that might be impacting today's encounter and assessment, information from prior notes written by myself or my colleagues may have been "brought forward" into today's note. My signature on this note, however, is an attestation that I personally performed the exam, history, and/or decision-making noted today, and, unless otherwise indicated, the interactions with patient, family, and staff as well as the review of records all occurred today. I also attest that the listed assessment and stated plan reflect my best clinical judgment today based on the combination of historical information, prior notes, and today's exam/ interactions. When time spent is documented, it refers only to time spent today by the signer, or if indicated, combined time spent today by collaborating physician/nurse practitioner. .
== END 2018-07-01 15:42 ==
LOC: PHED 10:35 → PHEDA 19:22 → INTOOBSV 19:22 → PHEDA 21:03 → PH3 21:06
PROVIDERS: ADMIT Internal Medicine; ATTEND Internal Medicine
DX: K21.9 Gastro-esophageal reflux disease without esophagitis; I48.91 Unspecified atrial fibrillation; R94.2 Abnormal results of pulmonary function studies; R45.1 Restlessness and agitation; I10 Essential (primary) hypertension; R06.9 Unspecified abnormalities of breathing; F03.91 Unspecified dementia, unspecified severity, with behavioral disturbance; R60.9 Edema, unspecified; Z79.01 Long term (current) use of anticoagulants; E03.9 Hypothyroidism, unspecified; G93.41 Metabolic encephalopathy; H91.90 Unspecified hearing loss, unspecified ear; R44.1 Visual hallucinations; L03.115 Cellulitis of right lower limb; E87.6 Hypokalemia; B96.5 Pseudomonas (aeruginosa) (mallei) (pseudomallei) as the cause of diseases classified elsewhere; Z85.828 Personal history of other malignant neoplasm of skin; Z86.73 Personal history of transient ischemic attack (TIA), and cerebral infarction without residual deficits; I72.4 Aneurysm of artery of lower extremity

== ENCOUNTER 2018-07-01 14:07 | Inpatient (IN) ==
[2018-07-01] MEDS ORDERED: Furosemide 20 MG Tablet PO PRN (14:13)
[2018-07-01] MEDS ORDERED: Melatonin 5 MG Tablet PO PRN (14:16)
[2018-07-01] MEDS ORDERED: Aluminum/Magnesium/Simethacone Susp 30 ML UDC PO PRN (14:16)
[2018-07-01] MEDS: Ciprofloxacin 500 MG Tablet PO SCH (20:23)
[2018-07-02] MEDS: Levothyroxine 88 MCG Tablet PO SCH (05:48)
--- NOTE | 2018-07-02 08:58 | P.HPPSY ---
Provisional Diagnosis Admission Date: July 01, 2018 16:12 Competence Certification of Person's Competence To Provide Express and Informed Consent I have personally examined Prakash Yee, a person being served at [facility] on, July 02, 2018 0858. Express and informed consent means consent voluntarily given in writing, by a competent person, after sufficient explanation and disclosure of the subject matter involved to enable the person to make a knowing and willful decision without any element of force, fraud, deceit, duress, or other form of constraint or coercion. This person is 18 years of age or older, is not now known to be incompetent to consent to treatment with a guardian advocate, and does not have a health care surrogate or proxy currently making medical treatment decisions. I have found this person to be one of the following: [] Competent to provide express and informed consent, as defined above, for voluntary admission to this facility and is competent to provide express and informed consent for treatment. He/she has the consistent capacity to make well reasoned, willful, and knowing decisions concerning his or her medical or mental health treatment. The person fully and consistently understands the purpose of the admission for examination/placement and is fully capable of personally exercising all rights assured under [place] [] Incompetent to provide express and informed consent to voluntary admission, and this is incompetent to provide express and informed consent to treatment. The person must be transferred to involuntary status and a petition for a guardian advocate filed with the Circuit Court. [] Refusing to provide express and informed consent to voluntary admission but is competent to provide express and informed consent for treatment. The person must be discharged or transferred to involuntary status. Form shall be completed within 24 hours of a person's arrival at the receiving facility and filed in the clinical record of each person: 1. Admitted on a voluntary basis 2. Permitted to provide express and informed consent to his/her own treatment 3. Allowed to transfer from involuntary to voluntary status 4. Prior to permitting a person to consent to his or her own treatment after having been previously found incompetent to consent to treatment. History of Present Illness - Inpatient Certification I certify that the inpatient services were ordered in accordance with Medicare regulations governing the order. This includes certification that hospital inpatient services are reasonable and necessary and in the case of services not specified as inpatient-only under 42 CFR 419.22(n), that they are appropriately provided as inpatient services in accordance to with the 2-midnight benchmark under 43 CFR 412.3(e) I certify that inpatient psychiatric hospital services are medically necessary. Evaluation and treatment and/or diagnostic testing are expected to improve the patient's condition. The patient needs on a daily basis, active treatment furnished directly by or requiring the supervision of inpatient psychiatric facility personnel. Estimated Total Length of Stay (Days): 7 Plans for Post Hospital Care: Not yet determined PMFSH - History History Provided By: Family Member - Medical History Medical History: Medical History (Last Reviewed 07/01/18 @ 17:23 by Sangeeta Lilly PT) Aneurysm Dementia GERD (gastroesophageal reflux disease) Hypertension Hypothyroid - Tobacco History Second Hand Smoke Exposure: No Smoking Status: Never smoker - Alcohol History How Often Do You Have a Drink Containing Alcohol: Never - Substance Use History Substance History: No History of Abuse - Immunization History Tetanus Immunization: Unsure Hx Influenza Vaccine This Season: Yes Medications and Allergies Active Medications: Active Medications Acetaminophen (Tylenol) 650 mg PO Q4H PRN PRN Reason: Pain 1-5 or Temp >101F Al Hydrox/Mg Hydrox/Simethicone (Mag-Al Plus Susp Liq) 30 ml PO Q6H PRN PRN Reason: DYSPEPSIA Al Hydroxide/Mg Hydroxide (Milk Of Magnesia Liq) 30 ml PO Q12H PRN PRN Reason: Mild Constipation Al Hydroxide/Mg Hydroxide (Milk Of Magnesia Liq) 30 ml PO Q12H PRN PRN Reason: Mild Constipation Apixaban (Eliquis) 2.5 mg PO BID [facility] Last Admin: 07/01/18 22:07 Dose: Not Given Carvedilol (Coreg) 3.125 mg PO BID [facility] Last Admin: 07/01/18 20:23 Dose: 3.125 mg Ciprofloxacin HCl (Cipro) 500 mg PO Q12HR [facility] Stop: 07/06/18 20:59 Last Admin: 07/01/18 20:23 Dose: 500 mg Cyanocobalamin (Vitamin B12) 1,000 mcg PO DAILY [facility] Fludrocortisone Acetate (Florinef) 0.1 mg PO BID [facility] Last Admin: 07/01/18 22:07 Dose: Not Given Furosemide (Lasix) 20 mg PO DAILY PRN PRN Reason: SEE LABEL COMMENTS Hydroxyzine HCl (Atarax) 50 mg PO Q6H PRN PRN Reason: ANXIETY Lactobacillus Acidophilus (Lactinex Pkt) 1 gm PO TID [facility] Last Admin: 07/01/18 18:01 Dose: 1 gm Levothyroxine Sodium (Synthroid) 88 mcg PO DAILY@0600 [facility] Last Admin: 07/02/18 05:48 Dose: 88 mcg Meclizine HCl (Antivert) 25 mg PO BID [facility] Last Admin: 07/01/18 22:07 Dose: Not Given Melatonin (Melatonin) 5 mg PO HS PRN PRN Reason: INSOMNIA Multivitamins (Theragran) 1 tab PO DAILY [facility] Mupirocin (Bactroban 2% Oint) 1 applicatio TOPICAL BID [facility] Last Admin: 07/01/18 22:07 Dose: Not Given Non-Formulary Medication (Omeprazole [Omeprazole]) 20 mg PO DAILY [facility] Non-Formulary Medication (Paroxetine Hcl [Paroxetine Hcl]) 5 mg PO HS [facility] Pantoprazole Sodium (Protonix) 20 mg PO DAILY [facility] Vitamin D (Vitamin D3) 1,000 unit PO DAILY [facility] Allergies Allergy/AdvReac Type Severity Reaction Status Date / Time albuterol AdvReac Mild Heart Verified 06/27/18 10:41 racing Home Medications Medication Instructions Recorded Confirmed Type apixaban [Eliquis] 2.5 mg PO BID 02/13/18 06/27/18 History carvedilol 3.125 mg PO BID 02/13/18 06/27/18 History cholecalciferol (vitamin D3) 1,000 unit PO DAILY 02/13/18 06/27/18 History [Vitamin D3] cyanocobalamin (vitamin B-12) 1,000 mcg PO DAILY 02/13/18 06/27/18 History fludrocortisone 0.1 mg PO BID 02/13/18 06/27/18 History levothyroxine 88 mcg PO DAILY 02/13/18 06/27/18 History meclizine 25 mg PO BID 02/13/18 06/27/18 History omeprazole 20 mg PO DAILY 02/13/18 06/27/18 History paroxetine HCl 5 mg PO HS 02/13/18 06/27/18 History furosemide 20 mg PO DAILY PRN 06/27/18 06/27/18 History potassium chloride 20 meq PO DAILY PRN 06/27/18 06/27/18 History Exam Vital signs: Vital Signs 07/02/18 06:00 Temperature 97.6 F Pulse Rate 85 Respiratory Rate 16 Blood Pressure 146/77 H Pulse Oximetry 90 L Intake & Output 07/01/18 07/02/18 07/02/18 18:59 06:59 18:59 Intake Total 960 / 960 Balance 960 / 960 Weight 200 kg Intake: Oral 960 / 960 Other: # Voids 1 Weight On Admission 200 kg Assessment and Plan - Plan Plan: Estimated LOS: [] days
--- NOTE | 2018-07-02 09:12 | P.PNPSY ---
Subjective Remarks: Patient is an 87-year-old white male initially seen in consultation by Dr. Rodriguez, his H&P reviewed and agreed with. Patient is admitted under Jackson act. I have done first opinion petition supporting Jackson act. I agree with Dr. Rodriguez patient is suffering from severe dementia. And at this time does not have capacity thus I will ask for healthcare surrogate and guardian advocate. I have also finished the initial psychiatric template admission orders. Patient seen by me today in the dayroom with nurse Della, patient did suffer a fall earlier today he has been assessed by the hospitalist service and they are ordered appropriate imaging. Patient is alert diffusely confused in all 4 spheres. Though he is in no acute distress. We will need to contact patient's family to arrange for a meeting to discuss diagnosis treatment and possible placement issues. We will continue the Seroquel 25 mg twice daily that was ordered by Dr. Rodriguez will also include Atarax and Benadryl for treatment. Review of Systems unobtainable due to mental condition Mental Status Examination Appearance: Appropriate Consciousness: Alert Orientation: Person Motor Activity: Other (She is sitting at a table unable to ascertain) Speech: Other (Disorganized) Language: Adequate Fund of Knowledge: Inadequate Attention and Concentration: Easily distracted Memory: Impaired Mood: Other (Euthymic to somewhat irritable) Affect: Other (Slight increased range and intensity) Thought Process & Associations: Disorganized Thought Content: Other (Disorganized) Hallucination Type: None Delusion Type: None Suicidal Ideation: No Suicidal Plan: No Suicidal Intention: No Homicidal Ideation: No Homicidal Plan: No Homicidal Intention: No Insight: Poor Judgment: Poor Assessment and Plan - Assessment (1) Dementia with behavioral disturbance Code(s): F03.91 - Unspecified dementia with behavioral disturbance Status: Acute - Plan Plan: Estimated LOS: [] days At this time patient meets criteria for involuntary psychiatric hospitalization of the Jackson act I will do first opinion request second opinion. I feel he does not have capacity will ask for healthcare surrogate Guardian advocate. We do have the hospitalist consulting with us also. PT consult was also. Continue medications of Seroquel 25 mg twice daily along with Atarax and Benadryl and his other medical medications per the med reconciliation. We will need to meet with patient's family to discuss further treatment diagnosis and possible placement issues Justification for Continued Inpatient Stay: At this time patient with decompensated placed in a lower level of care Discharge Planning: To be determined in communication and cooperation with family Request Healthcare Surrogate/Guardian Advocate?: Yes (1) Dementia with behavioral disturbance Qualifiers: Dementia type: Alzheimer's disease Alzheimer's disease onset: late-onset Qualified Code(s): G30.1 - Alzheimer's disease with late onset; F02.81 - Dementia in other diseases classified elsewhere with behavioral disturbance
--- NOTE | 2018-07-02 09:21 | CT ---
EXAM DATE: 07/02/2018 9:16 AM EST AGE/SEX: 87 years / Male INDICATIONS: Head injury after fall. CLINICAL DATA: This is the patient's initial encounter. Patient reports that signs and symptoms have been present for 1 day and indicates a pain score of 0/10. MEDICAL/SURGICAL HISTORY: Dementia. Hypertension. Aneurysm. . Cranial surgery. RADIATION DOSE: 56.35 CTDI (mGy) COMPARISON: [facility], CT HEAD W/O CONTRAST, 06/27/2018. . TECHNIQUE: CT of the head without contrast. Using automated exposure control and adjustment of the mA and/or kV according to patient size, radiation dose was kept as low as reasonably achievable to ob tain optimal diagnostic quality images. DICOM format image data is available electronically for revi ew and comparison. FINDINGS: Cerebrum: The ventricles are normal for age with diffuse hypertrophic change. There is sulcal and ve ntricular prominence again noted which is not significantly changed. Chronic small vessel ischemic ch anges are again noted with decreased attenuation in the periventricular white matter. No evidence of midline shift, mass lesion, hemorrhage or acute infarction. No extraaxial fluid collections are seen . Posterior Fossa: The cerebellum and brainstem are intact. The 4th ventricle is midline. The cerebe llopontine angle is unremarkable. Extracranial: The visualized portion of the orbits is intact. Skull: The calvaria is intact. No evidence of skull fracture. CONCLUSION: 1. No acute hemorrhage or mass effect. 2. Atrophy and chronic small vessel ischemic changes again noted. . Electronically signed by: David Thomas MD 07/02/2018 9:20 AM EST
[2018-07-02] MEDS: Ciprofloxacin 500 MG Tablet PO SCH ×2 (09:45→20:19)
[2018-07-02] MEDS: Pantoprazole Sodium 20 MG DR Tablet PO SCH ×2 (09:45)
[2018-07-02 09:51] LABS: Calcium 8.8 mg/dL (8.5-10.1); Potassium 3.1 meq/L (3.5-5.1)
[2018-07-02 09:54] LABS: Chol/HDL Ratio 3.41 Ratio; HDL Cholesterol 42.7 mg/dL (40.0-60.0)
[2018-07-02] MEDS ORDERED: Potassium Chloride 25 MEQ Effervescent Tablet PO ONE (10:55)
[2018-07-02] MEDS: QUEtiapine 25 MG Tablet PO SCH ×2 (12:11→20:52)
--- NOTE | 2018-07-02 15:25 | P.CON ---
History of Present Illness Service: [facility] Consult date: 07/02/18 Requesting Physician: Alphonse Huertas Reason for Consult: Medical management Primary Care Provider: UNKNOWN Chief Complaint: agitation, inc. confusion History of Present Illness: Patient is an 87-year-old elderly male with history of dementia, GERD, A. fib, hypertension, hypothyroidism, bilateral posterior popliteal aneurysms, CVA on Eliquis. Patient was initially admitted to [facility] from June 28 - July 01 for acute confusion superimposed on dementia. He had recently undergone removal of a skin cancer from the right anterior chin and had a history of intermittent cellulitis. He was admitted and treated with antibiotics, wound culture grew Pseudomonas. He was also evaluated by psychiatry, medications were adjusted and he was recommended to be admitted to psychiatric services after discharge. Palliative care was also following patient, patient is a DNR. They were also interested in hospice but does not meet criteria at this time. Likelihood is that patient will need placement after this admission to psych. Hospital services are requested to assist with medical management. This morning, patient was found sitting on the floor, it is not clear if he fell. Patient was found awake and alert. He is very hard of hearing and demented. A CT of the head was done, no acute findings were noted. Right lower extremity is noted with circular wound from skin excision, minimal erythema, no swelling. There has not been any fever reported. ROS difficult to obtain due to patient's dementia. Review of Systems unobtainable due to mental condition PMFSH - History History Provided By: Family Member - Medical History Medical History: Medical History (Last Updated 07/02/18 @ 15:43 by CAMILLA Rodríguez) Atrial fibrillation CVA (cerebral vascular accident) Aneurysm Dementia GERD (gastroesophageal reflux disease) Hypertension Hypothyroid - Surgical History Surgical History: Surgical History (Last Reviewed 07/02/18 @ 15:43 by CAMILLA Rodríguez) History of femoropopliteal bypass - Family History Family History: Family History (Last Updated 07/02/18 @ 15:26 by CAMILLA Rodríguez) Other Family history unobtainable - Social History I have reviewed the patient's Social History: Yes - Tobacco History Second Hand Smoke Exposure: No Smoking Status: Never smoker - Alcohol History How Often Do You Have a Drink Containing Alcohol: Never - Substance Use History Substance History: No History of Abuse - Immunization History Tetanus Immunization: Unsure Hx Influenza Vaccine This Season: Yes Medications and Allergies Active Medications: Active Medications Acetaminophen (Tylenol) 650 mg PO Q4H PRN PRN Reason: Pain 1-5 or Temp >101F Al Hydrox/Mg Hydrox/Simethicone (Mag-Al Plus Susp Liq) 30 ml PO Q6H PRN PRN Reason: DYSPEPSIA Al Hydroxide/Mg Hydroxide (Milk Of Magnesia Liq) 30 ml PO Q12H PRN PRN Reason: Mild Constipation Al Hydroxide/Mg Hydroxide (Milk Of Magnesia Liq) 30 ml PO Q12H PRN PRN Reason: Mild Constipation Apixaban (Eliquis) 2.5 mg PO BID [facility] Last Admin: 07/02/18 09:44 Dose: 2.5 mg Carvedilol (Coreg) 3.125 mg PO BID [facility] Last Admin: 07/02/18 09:45 Dose: 3.125 mg Ciprofloxacin HCl (Cipro) 500 mg PO Q12HR [facility] Stop: 07/06/18 20:59 Last Admin: 07/02/18 09:45 Dose: 500 mg Cyanocobalamin (Vitamin B12) 1,000 mcg PO DAILY [facility] Last Admin: 07/02/18 09:45 Dose: 1,000 mcg Fludrocortisone Acetate (Florinef) 0.1 mg PO BID [facility] Last Admin: 07/02/18 09:45 Dose: 0.1 mg Furosemide (Lasix) 20 mg PO DAILY PRN PRN Reason: SEE LABEL COMMENTS Hydroxyzine HCl (Atarax) 50 mg PO Q6H PRN PRN Reason: ANXIETY Lactobacillus Acidophilus (Lactinex Pkt) 1 gm PO TID [facility] Last Admin: 07/02/18 12:11 Dose: 1 gm Levothyroxine Sodium (Synthroid) 88 mcg PO DAILY@0600 [facility] Last Admin: 07/02/18 05:48 Dose: 88 mcg Meclizine HCl (Antivert) 25 mg PO BID [facility] Last Admin: 07/02/18 09:44 Dose: 25 mg Melatonin (Melatonin) 5 mg PO HS PRN PRN Reason: INSOMNIA Multivitamins (Theragran) 1 tab PO DAILY [facility] Last Admin: 07/02/18 09:45 Dose: 1 tab Mupirocin (Bactroban 2% Oint) 1 applicatio TOPICAL BID [facility] Last Admin: 07/02/18 09:44 Dose: 1 applicatio Pantoprazole Sodium (Protonix) 20 mg PO DAILY [facility] Last Admin: 07/02/18 09:45 Dose: 20 mg Pantoprazole Sodium (Protonix) 20 mg PO DAILY [facility] Last Admin: 07/02/18 09:45 Dose: Not Given Paroxetine HCl (Paxil Liq) 5 mg PO [facility] Quetiapine Fumarate (Seroquel) 25 mg PO BID [facility] Last Admin: 07/02/18 12:11 Dose: 25 mg Vitamin D (Vitamin D3) 1,000 unit PO DAILY [facility] Last Admin: 07/02/18 09:45 Dose: 1,000 unit Allergies Allergy/AdvReac Type Severity Reaction Status Date / Time albuterol AdvReac Mild Heart Verified 06/27/18 10:41 racing Home Medications Medication Instructions Recorded Confirmed Type apixaban [Eliquis] 2.5 mg PO BID 02/13/18 06/27/18 History carvedilol 3.125 mg PO BID 02/13/18 06/27/18 History cholecalciferol (vitamin D3) 1,000 unit PO DAILY 02/13/18 06/27/18 History [Vitamin D3] cyanocobalamin (vitamin B-12) 1,000 mcg PO DAILY 02/13/18 06/27/18 History fludrocortisone 0.1 mg PO BID 02/13/18 06/27/18 History levothyroxine 88 mcg PO DAILY 02/13/18 06/27/18 History meclizine 25 mg PO BID 02/13/18 06/27/18 History omeprazole 20 mg PO DAILY 02/13/18 06/27/18 History paroxetine HCl 5 mg PO HS 02/13/18 06/27/18 History furosemide 20 mg PO DAILY PRN 06/27/18 06/27/18 History potassium chloride 20 meq PO DAILY PRN 06/27/18 06/27/18 History Physical Exam Vital signs: Vital Signs 07/02/18 06:00 07/02/18 08:00 07/02/18 08:40 Temperature 97.6 F 98.1 F Pulse Rate 85 85 88 Respiratory Rate 16 19 16 Blood Pressure 146/77 H 166/100 H 140/74 Pulse Oximetry 90 L 94 L 90 L 07/02/18 09:20 07/02/18 13:15 Temperature 98 F 98.7 F Pulse Rate 91 H 80 Respiratory Rate 19 18 Blood Pressure 134/68 122/74 Pulse Oximetry 93 L 91 L Intake & Output 07/01/18 07/02/18 07/02/18 18:59 06:59 18:59 Intake Total 960 / 960 240 / 240 Balance 960 / 960 240 / 240 Weight 200 kg Intake: Oral 960 / 960 240 / 240 Other: # Voids 1 Weight On Admission 200 kg Narrative: GENERAL: 87-year-old elderly male, sleeping. SKIN: Warm and dry. HEAD: Atraumatic. Normocephalic. EYES: Pupils equal and round. No scleral icterus. No injection or drainage. NECK: Trachea midline. No JVD. CARDIOVASCULAR: S1-S2, unable to detect any murmurs rubs or gallops. RESPIRATORY: No accessory muscle use. Clear to auscultation. Breath sounds equal bilaterally. GASTROINTESTINAL: Abdomen soft, non-tender, nondistended. Hepatic and splenic margins not palpable. MUSCULOSKELETAL: Extremities without clubbing, cyanosis, or edema. No obvious deformities. NEUROLOGICAL: Patient sleeping, difficult to arouse, opens eyes but goes back to sleep. Very hard of hearing. Moves all extremities spontaneously. PSYCHIATRIC: Unable to assess Results - Labs CBC & Chem 7: 07/02/18 08:28 Labs: Laboratory Results - last 24 hr 07/02/18 08:28 Sodium 140 Potassium 3.1 L Chloride 106 Carbon Dioxide 27.0 Anion Gap 7 BUN 16 Creatinine 0.95 Estimated GFR 75 L Random Glucose 107 H Calcium 8.8 Triglycerides 121 Cholesterol 146 LDL Cholesterol, Calc 79 HDL Cholesterol 42.7 Cholesterol/HDL Ratio 3.41 - Imaging Impressions Head CT 07/02/18 08:44 CONCLUSION: 1. No acute hemorrhage or mass effect. 2. Atrophy and chronic small vessel ischemic changes again noted. . Assessment and Plan - Plan 87-year-old elderly male with history of dementia, GERD, hypothyroidism, A. fib , CVA, chronic anticoagulation. Recently admitted for acute confusion superimposed on dementia and recurrent cellulitis of right lower extremity. Had recent removal of skin cancer. Dementia with behavioral disturbance Recent acute on chronic, likely exacerbated by cellulitis Continue with psychiatric management Recurrent cellulitis right lower extremity, had excision of skin cancer. Culture for Pseudomonas -Continue with Cipro, end date July 07, 2018 -Right leg has minimal erythema, no swelling, no fever. 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 fib, currently sinus rhythm Continue with Coreg 3.125 mg p.o. twice daily -Continue Eliquis History CVA Continue Eliquis -Pt. with hx of frequent falls. Pt. at risk for intracranial bleeds due to trauma. Will need to discuss with family whether Eliquis is a safe medication at this time considering worsening dementia with agitation and frequent falls. 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
--- NOTE | 2018-07-02 15:49 | P.HPPSY ---
Provisional Diagnosis Admission Date: July 01, 2018 16:12 [place] I.: Unspecified psychosis, dementia with behavioral disturbance Competence Certification of Person's Competence To Provide Express and Informed Consent I have personally examined Prakash Yee, a person being served at [facility] on, July 02, 2018 1547. Express and informed consent means consent voluntarily given in writing, by a competent person, after sufficient explanation and disclosure of the subject matter involved to enable the person to make a knowing and willful decision without any element of force, fraud, deceit, duress, or other form of constraint or coercion. This person is 18 years of age or older, is not now known to be incompetent to consent to treatment with a guardian advocate, and does not have a health care surrogate or proxy currently making medical treatment decisions. I have found this person to be one of the following: [] Competent to provide express and informed consent, as defined above, for voluntary admission to this facility and is competent to provide express and informed consent for treatment. He/she has the consistent capacity to make well reasoned, willful, and knowing decisions concerning his or her medical or mental health treatment. The person fully and consistently understands the purpose of the admission for examination/placement and is fully capable of personally exercising all rights assured [place] [x] Incompetent to provide express and informed consent to voluntary admission, and this is incompetent to provide express and informed consent to treatment. The person must be transferred to involuntary status and a petition for a guardian advocate filed with the Circuit Court. [] Refusing to provide express and informed consent to voluntary admission but is competent to provide express and informed consent for treatment. The person must be discharged or transferred to involuntary status. Form shall be completed within 24 hours of a person's arrival at the receiving facility and filed in the clinical record of each person: 1. Admitted on a voluntary basis 2. Permitted to provide express and informed consent to his/her own treatment 3. Allowed to transfer from involuntary to voluntary status 4. Prior to permitting a person to consent to his or her own treatment after having been previously found incompetent to consent to treatment. History of Present Illness Capacity: Lacks capacity History of Present Illness: Late entry. The patient was seen July 01, 2018 This is an 87-year-old man, domiciled his in [place], retired , with a psychiatric history of dementia, depression, but no previous psychiatric hospitalizations, no previous suicidal attempts, he has been in Seroquel 25 mg twice a day for behavioral control, Paxil 5 mg, with a past medical history of CVA, TIA, 4.1 cm AAA, atrial fibrillation and hypertension who was brought to the [place] emergency room after showing significant alteration of mental status, confusion and agitation at about 3:30 AM on 06/27. He had recently been seen by his physician to evaluate right leg swelling and discomfort and nonhealing wound on the right anaya status post skin cancer removal. He had been started on antibiotics by his PCP due to some erythema, warmth and redness around the right lower extremity. Patient presented as aggressive and combative, however responded well to family. EKG shows sinus rhythm, QTc is 428.CT of the head without contrast shows no evidence of acute intracranial pathology, no masses. WBC 8.9, hemoglobin 13.4, hematocrit 39.2, platelets 1, sodium 141, potassium 3.8, BUN 16, creatinine 1.20, calcium 8.4, magnesium 2.0. Chart has been reviewed, patient was discussed with primary medical team. Collateral information from her family also obtained. On my psychiatric evaluation this morning the patient is found agitated, trying to get out of the bed, stating that he needs to go home today and he needs help. The patient is very difficult and extremely hard of hearing. He cannot even answer his name. He seems to be quite confused, completely disoriented and unable to provide any meaningful information for the psychiatric assessment at the moment. However I spoke with Fabi Briscoe, his daughter, and she has tells me that the patient has been recently agitated, at times verbally hostile and aggressive and very confused. She tells me that this is not characteristic in her father, he has dementia, but he usually recognizes his family, is able to be independent in taking showers, walking in the house, getting dressed, recently has been not doing this. They are very afraid of his safety and the safety of her mother due his Mental status and his agitation. The family has agreed that the patient should be admitted in a psychiatric millan to be helped to calm down. - Inpatient Certification I certify that the inpatient services were ordered in accordance with Medicare regulations governing the order. This includes certification that hospital inpatient services are reasonable and necessary and in the case of services not specified as inpatient-only under 42 CFR 419.22(n), that they are appropriately provided as inpatient services in accordance to with the 2-midnight benchmark under 43 CFR 412.3(e) I certify that inpatient psychiatric hospital services are medically necessary. Evaluation and treatment and/or diagnostic testing are expected to improve the patient's condition. The patient needs on a daily basis, active treatment furnished directly by or requiring the supervision of inpatient psychiatric facility personnel. Estimated Total Length of Stay (Days): 7 Plans for Post Hospital Care: Not yet determined Review of Systems All other systems reviewed negative except as stated in HPI Psychiatric: Reports behavioral changes, Reports mood swings, Reports paranoia ( Aggressive behavior, agitation) PMFSH - History History Provided By: Family Member - Medical History Medical History: Medical History (Last Updated 07/02/18 @ 15:43 by CAMILLA Rodríguez) Atrial fibrillation CVA (cerebral vascular accident) Aneurysm Dementia GERD (gastroesophageal reflux disease) Hypertension Hypothyroid - Surgical History Surgical History: Surgical History (Last Reviewed 07/02/18 @ 15:43 by CAMILLA Rodríguez) History of femoropopliteal bypass - Family History Family History: Family History (Last Updated 07/02/18 @ 15:26 by CAMILLA Rodríguez) Other Family history unobtainable - Tobacco History Second Hand Smoke Exposure: No Smoking Status: Never smoker - Alcohol History How Often Do You Have a Drink Containing Alcohol: Never - Substance Use History Substance History: Unable to Obtain - Immunization History Tetanus Immunization: Unsure Hx Influenza Vaccine This Season: Yes Medications and Allergies Active Medications: Active Medications Acetaminophen (Tylenol) 650 mg PO Q4H PRN PRN Reason: Pain 1-5 or Temp >101F Al Hydrox/Mg Hydrox/Simethicone (Mag-Al Plus Susp Liq) 30 ml PO Q6H PRN PRN Reason: DYSPEPSIA Al Hydroxide/Mg Hydroxide (Milk Of Magnesia Liq) 30 ml PO Q12H PRN PRN Reason: Mild Constipation Al Hydroxide/Mg Hydroxide (Milk Of Magnesia Liq) 30 ml PO Q12H PRN PRN Reason: Mild Constipation Apixaban (Eliquis) 2.5 mg PO BID [facility] Last Admin: 07/02/18 09:44 Dose: 2.5 mg Carvedilol (Coreg) 3.125 mg PO BID [facility] Last Admin: 07/02/18 09:45 Dose: 3.125 mg Ciprofloxacin HCl (Cipro) 500 mg PO Q12HR [facility] Stop: 07/06/18 20:59 Last Admin: 07/02/18 09:45 Dose: 500 mg Cyanocobalamin (Vitamin B12) 1,000 mcg PO DAILY [facility] Last Admin: 07/02/18 09:45 Dose: 1,000 mcg Fludrocortisone Acetate (Florinef) 0.1 mg PO BID [facility] Last Admin: 07/02/18 09:45 Dose: 0.1 mg Furosemide (Lasix) 20 mg PO DAILY PRN PRN Reason: SEE LABEL COMMENTS Hydroxyzine HCl (Atarax) 50 mg PO Q6H PRN PRN Reason: ANXIETY Lactobacillus Acidophilus (Lactinex Pkt) 1 gm PO TID [facility] Last Admin: 07/02/18 12:11 Dose: 1 gm Levothyroxine Sodium (Synthroid) 88 mcg PO DAILY@0600 [facility] Last Admin: 07/02/18 05:48 Dose: 88 mcg Meclizine HCl (Antivert) 25 mg PO BID [facility] Last Admin: 07/02/18 09:44 Dose: 25 mg Melatonin (Melatonin) 5 mg PO HS PRN PRN Reason: INSOMNIA Multivitamins (Theragran) 1 tab PO DAILY [facility] Last Admin: 07/02/18 09:45 Dose: 1 tab Mupirocin (Bactroban 2% Oint) 1 applicatio TOPICAL BID [facility] Last Admin: 07/02/18 09:44 Dose: 1 applicatio Pantoprazole Sodium (Protonix) 20 mg PO DAILY [facility] Last Admin: 07/02/18 09:45 Dose: 20 mg Pantoprazole Sodium (Protonix) 20 mg PO DAILY [facility] Last Admin: 07/02/18 09:45 Dose: Not Given Paroxetine HCl (Paxil Liq) 5 mg PO HS [facility] Quetiapine Fumarate (Seroquel) 25 mg PO BID [facility] Last Admin: 07/02/18 12:11 Dose: 25 mg Vitamin D (Vitamin D3) 1,000 unit PO DAILY [facility] Last Admin: 07/02/18 09:45 Dose: 1,000 unit Allergies Allergy/AdvReac Type Severity Reaction Status Date / Time albuterol AdvReac Mild Heart Verified 06/27/18 10:41 racing Home Medications Medication Instructions Recorded Confirmed Type apixaban [Eliquis] 2.5 mg PO BID 02/13/18 06/27/18 History carvedilol 3.125 mg PO BID 02/13/18 06/27/18 History cholecalciferol (vitamin D3) 1,000 unit PO DAILY 02/13/18 06/27/18 History [Vitamin D3] cyanocobalamin (vitamin B-12) 1,000 mcg PO DAILY 02/13/18 06/27/18 History fludrocortisone 0.1 mg PO BID 02/13/18 06/27/18 History levothyroxine 88 mcg PO DAILY 02/13/18 06/27/18 History meclizine 25 mg PO BID 02/13/18 06/27/18 History omeprazole 20 mg PO DAILY 02/13/18 06/27/18 History paroxetine HCl 5 mg PO HS 02/13/18 06/27/18 History furosemide 20 mg PO DAILY PRN 06/27/18 06/27/18 History potassium chloride 20 meq PO DAILY PRN 06/27/18 06/27/18 History Results - Labs CBC & Chem 7: 07/02/18 08:28 Labs: Laboratory Results - last 24 hr 07/02/18 08:28 Sodium 140 Potassium 3.1 L Chloride 106 Carbon Dioxide 27.0 Anion Gap 7 BUN 16 Creatinine 0.95 Estimated GFR 75 L Random Glucose 107 H Calcium 8.8 Triglycerides 121 Cholesterol 146 LDL Cholesterol, Calc 79 HDL Cholesterol 42.7 Cholesterol/HDL Ratio 3.41 - Imaging Impressions Head CT 07/02/18 08:44 CONCLUSION: 1. No acute hemorrhage or mass effect. 2. Atrophy and chronic small vessel ischemic changes again noted. . Exam Vital signs: Vital Signs 07/02/18 06:00 07/02/18 08:00 07/02/18 08:40 Temperature 97.6 F 98.1 F Pulse Rate 85 85 88 Respiratory Rate 16 19 16 Blood Pressure 146/77 H 166/100 H 140/74 Pulse Oximetry 90 L 94 L 90 L 07/02/18 09:20 07/02/18 13:15 Temperature 98 F 98.7 F Pulse Rate 91 H 80 Respiratory Rate 19 18 Blood Pressure 134/68 122/74 Pulse Oximetry 93 L 91 L Intake & Output 07/01/18 07/02/1818 18:59 06:59 18:59 Intake Total 960 / 960 240 / 240 Balance 960 / 960 240 / 240 Weight 200 kg Intake: Oral 960 / 960 240 / 240 Other: # Voids 1 Weight On Admission 200 kg Mental Status Examination Appearance: Appropriate Consciousness: Alert Orientation: Person Motor Activity: Other (She is sitting at a table unable to ascertain) Speech: Other (Disorganized) Language: Adequate Fund of Knowledge: Inadequate Attention and Concentration: Easily distracted Memory: Impaired Mood: Other (Euthymic to somewhat irritable) Affect: Other (Slight increased range and intensity) Thought Process & Associations: Disorganized Thought Content: Other (Disorganized) Hallucination Type: None Delusion Type: None Suicidal Ideation: No Suicidal Plan: No Suicidal Intention: No Homicidal Ideation: No Homicidal Plan: No Homicidal Intention: No Insight: Poor Judgment: Poor Assessment and Plan - Assessment (1) Dementia with behavioral disturbance Code(s): F03.91 - Unspecified dementia with behavioral disturbance Status: Acute - Plan Plan: On psychiatric evaluation today patient presents agitated, disorganized, tangential, unable to provide any meaningful information for the psychiatric assessment. As per conversation with medical team and nurse also by conversation with family members, the patient has been very agitated, paranoid, having visual hallucinations difficult to redirect. The patient is now medically clear. Family are afraid of taking him back home in this condition. He has a psychiatric history of dementia, but no prepsychotic hospitalizations, no previous suicidal attempts. Patient benefit of psychiatric admission for stabilization and safety. Okay with Seroquel 25 mg twice daily. Add Haldol 1- 2 mg IM every 8 hours as needed severe agitation. Transfer to 2500 unit. Justification for Continued Inpatient Stay: Continue psychiatric admission Request Healthcare Surrogate/Guardian Advocate?: Yes (1) Dementia with behavioral disturbance Qualifiers: Qualified Code(s): G30.1 - Alzheimer's disease with late onset; F02.81 - Dementia in other diseases classified elsewhere with behavioral disturbance
[2018-07-02 16:01] LABS: Hemoglobin A1c 5.4 % (4.3-6.0)
[2018-07-02] MEDS: PARoxetine Liq 20 MG/10 ML UDC PO SCH (20:20)
[2018-07-03] MEDS: Levothyroxine 88 MCG Tablet PO SCH (05:36)
[2018-07-03] MEDS: QUEtiapine 25 MG Tablet PO SCH ×2 (09:04→21:13)
[2018-07-03] MEDS: Ciprofloxacin 500 MG Tablet PO SCH ×2 (09:04→21:09)
[2018-07-03] MEDS: Pantoprazole Sodium 20 MG DR Tablet PO SCH ×2 (09:08)
--- NOTE | 2018-07-03 10:06 | P.PNPSY ---
Subjective Remarks: Patient is seen in day room with nurse Cheryl, chart reviewed, patient compliant medication. Patient remains diffusely confused disoriented also is very hard of hearing to the point we have to occasionally write communications with him. He does wish to go home to his and their pet dog. We will continue consultation with his family to determine appropriate placement. Otherwise patient no behavioral problems at this time Review of Systems All other systems reviewed negative except as stated in HPI Mental Status Examination Appearance: Appropriate Consciousness: Alert Orientation: Person Motor Activity: Other (She is sitting at a table unable to ascertain) Speech: Other (Disorganized) Language: Adequate Fund of Knowledge: Inadequate Attention and Concentration: Easily distracted Memory: Impaired Mood: Other (Euthymic to somewhat irritable) Affect: Other (Slight increased range and intensity) Thought Process & Associations: Disorganized Thought Content: Other (Disorganized) Hallucination Type: None Delusion Type: None Suicidal Ideation: No Suicidal Plan: No Suicidal Intention: No Homicidal Ideation: No Homicidal Plan: No Homicidal Intention: No Insight: Poor Judgment: Poor Assessment and Plan - Assessment (1) Dementia with behavioral disturbance Code(s): F03.91 - Unspecified dementia with behavioral disturbance Status: Acute - Plan Plan: Patient continues confused and demented with significant hearing deficit. However overall behavior is acceptable. For now continue treatment Justification for Continued Inpatient Stay: At this time patient with decompensated placed in a lower level of care Discharge Planning: To be determined Request Healthcare Surrogate/Guardian Advocate?: Yes (1) Dementia with behavioral disturbance Qualifiers: Dementia type: Alzheimer's disease Alzheimer's disease onset: late-onset Qualified Code(s): G30.1 - Alzheimer's disease with late onset; F02.81 - Dementia in other diseases classified elsewhere with behavioral disturbance
--- NOTE | 2018-07-03 10:22 | P.TTN ---
- Patient Problems Problems: 1. Discharge planning 2. Medication compliance 3. Knowledge deficit 4. Lack of coping skills - Progress Toward Goals Provider Present: Dr. Karel Huertas Provider Input: 07/03/18 Patient's doctor reports patient was pleasant, but disorganized in thought. Medication compliant. Nurse Input: 07/03/18 Patient's nurse resports patient is cooperative, slept 7 hour but had difficulty remaining asleep. Patient fell yesterday with no incident Psychiatric Counselors Present: Kati Hobson [facility] Psychiatric Therapist Input: 07/03/18 Patient presented tired, non verbal. Medication compliant. Passar and [phone] faxed to [facility] today Group Spec/RT/OT/GUO Present: CAIN Lucero Group Spec/RT/OT/GUO Input: 07/03/18 Patient not able to tolerate groups. - Documentation Teaching Recipient: Patient
--- NOTE | 2018-07-03 11:08 | P.CONPSY ---
Provisional Diagnosis Admission Date: July 01, 2018 16:12 [place] I.: 1. Dementia with behavioral disturbance Rule out component of overlying delirium [place] II.: Deferred History of Present Illness Service: Psychiatry Consult date: 07/03/18 Requesting Physician: Alphonse Huertas Reason for Consult: Second opinion for involuntary psychiatric hospitalization Primary Care Provider: UNKNOWN Chief Complaint: agitation, inc. confusion History of Present Illness: From Dr. 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 He had recently been seen by his physician to evaluate right leg swelling and discomfort and nonhealing wound on the right anaya status post skin cancer removal. He had been started on antibiotics by his PCP due to some erythema, warmth and redness around the right lower extremity. Patient presented as aggressive and combative, however responded well to family. EKG shows sinus rhythm, QTc is 428.CT of the head without contrast shows no evidence of acute intracranial pathology, no masses. WBC 8.9, hemoglobin 13.4, hematocrit 39.2, platelets 1, sodium 141, potassium 3.8, BUN 16, creatinine 1.20, calcium 8.4, magnesium 2.0. Chart has been reviewed, patient was discussed with primary medical team. Collateral information from her family also obtained. On my psychiatric evaluation this morning the patient is found agitated, trying to get out of the bed, stating that he needs to go home today and he needs help. The patient is very difficult and extremely hard of hearing. He cannot even answer his name. He seems to be quite confused, completely disoriented and unable to provide any meaningful information for the psychiatric assessment at the moment. However I spoke with Fabi Briscoe, his daughter, and she has tells me that the patient has been recently agitated, at times verbally hostile and aggressive and very confused. She tells me that this is not characteristic in her father, he has dementia, but he usually recognizes his family, is able to be independent in taking showers, walking in the house, getting dressed, recently has been not doing this. They are very afraid of his safety and the safety of her mother due his Mental status and his agitation. The family has agreed that the patient should be admitted in a psychiatric [facility] to be helped to calm down. On my examination today, 07/03: Patient seen and examined. Chart reviewed. Case discussed with staff. Patient is quite hard of hearing, which limits the interview. On my initial evaluation, patient is lying in bed. He is quite confused, oriented to person only. He is irascible. He is trying to get out of bed to go to the rest room. I have asked staff to assist patient to the bathroom. I find the patient a short while later in the day area. He remains confused and irritable. He asks me "you a teacher? You know my son." No hallucinations. No maria t delusional material. No SI/HI voiced. No reported issues with mood. Psychiatric interview is limited by cognitive impairment as well as by hearing impairments, and I am unable to obtain any meaningful past psychiatric, family, chemical dependency or social history for these reasons. No evidence of physical distress. Review of Systems unobtainable due to mental status PMFSH - History History Provided By: Family Member - Medical History Medical History: Medical History (Last Updated 07/02/18 @ 15:43 by CAMILLA Rodríguez) Atrial fibrillation CVA (cerebral vascular accident) Aneurysm Dementia GERD (gastroesophageal reflux disease) Hypertension Hypothyroid - Surgical History Surgical History: Surgical History (Last Reviewed 07/02/18 @ 15:43 by CAMILLA Rodríguez) History of femoropopliteal bypass - Family History Family History: Family History (Last Updated 07/02/18 @ 15:26 by CAMILLA Rodríguez) Other Family history unobtainable - Tobacco History Second Hand Smoke Exposure: No Smoking Status: Never smoker - Alcohol History How Often Do You Have a Drink Containing Alcohol: Never - Substance Use History Substance History: No History of Abuse - Immunization History Tetanus Immunization: Unsure Hx Influenza Vaccine This Season: Yes Medications and Allergies Active Medications: Active Medications Acetaminophen (Tylenol) 650 mg PO Q4H PRN PRN Reason: Pain 1-5 or Temp >101F Al Hydrox/Mg Hydrox/Simethicone (Mag-Al Plus Susp Liq) 30 ml PO Q6H PRN PRN Reason: DYSPEPSIA Al Hydroxide/Mg Hydroxide (Milk Of Magnesia Liq) 30 ml PO Q12H PRN PRN Reason: Mild Constipation Al Hydroxide/Mg Hydroxide (Milk Of Magnesia Liq) 30 ml PO Q12H PRN PRN Reason: Mild Constipation Apixaban (Eliquis) 2.5 mg PO BID [facility] Last Admin: 07/03/18 09:03 Dose: 2.5 mg Carvedilol (Coreg) 3.125 mg PO BID [facility] Last Admin: 07/03/18 09:03 Dose: 3.125 mg Ciprofloxacin HCl (Cipro) 500 mg PO Q12HR [facility] Stop: 07/06/18 20:59 Last Admin: 07/03/18 09:04 Dose: 500 mg Cyanocobalamin (Vitamin B12) 1,000 mcg PO DAILY [facility] Last Admin: 07/03/18 09:04 Dose: 1,000 mcg Fludrocortisone Acetate (Florinef) 0.1 mg PO BID [facility] Last Admin: 07/03/18 09:04 Dose: 0.1 mg Furosemide (Lasix) 20 mg PO DAILY PRN PRN Reason: SEE LABEL COMMENTS Hydroxyzine HCl (Atarax) 50 mg PO Q6H PRN PRN Reason: ANXIETY Lactobacillus Acidophilus (Lactinex Pkt) 1 gm PO TID [facility] Last Admin: 07/03/18 09:04 Dose: 1 gm Levothyroxine Sodium (Synthroid) 88 mcg PO DAILY@0600 [facility] Last Admin: 07/03/18 05:36 Dose: 88 mcg Meclizine HCl (Antivert) 25 mg PO BID [facility] Last Admin: 07/03/18 09:04 Dose: 25 mg Melatonin (Melatonin) 5 mg PO HS PRN PRN Reason: INSOMNIA Multivitamins (Theragran) 1 tab PO DAILY [facility] Last Admin: 07/03/18 09:04 Dose: 1 tab Mupirocin (Bactroban 2% Oint) 1 applicatio TOPICAL BID [facility] Last Admin: 07/03/18 09:05 Dose: 1 applicatio Pantoprazole Sodium (Protonix) 20 mg PO DAILY [facility] Last Admin: 07/03/18 09:08 Dose: 20 mg Pantoprazole Sodium (Protonix) 20 mg PO DAILY [facility] Last Admin: 07/03/18 09:08 Dose: Not Given Paroxetine HCl (Paxil Liq) 5 mg PO HS [facility] Last Admin: 07/02/18 20:20 Dose: 5 mg Quetiapine Fumarate (Seroquel) 25 mg PO BID [facility] Last Admin: 07/03/18 09:04 Dose: 25 mg Vitamin D (Vitamin D3) 1,000 unit PO DAILY [facility] Last Admin: 07/03/18 09:04 Dose: 1,000 unit Allergies Allergy/AdvReac Type Severity Reaction Status Date / Time albuterol AdvReac Mild Heart Verified 06/27/18 10:41 racing Home Medications Medication Instructions Recorded Confirmed Type apixaban [Eliquis] 2.5 mg PO BID 02/13/18 06/27/18 History carvedilol 3.125 mg PO BID 02/13/18 06/27/18 History cholecalciferol (vitamin D3) 1,000 unit PO DAILY 02/13/18 06/27/18 History [Vitamin D3] cyanocobalamin (vitamin B-12) 1,000 mcg PO DAILY 02/13/18 06/27/18 History fludrocortisone 0.1 mg PO BID 02/13/18 06/27/18 History levothyroxine 88 mcg PO DAILY 02/13/18 06/27/18 History meclizine 25 mg PO BID 02/13/18 06/27/18 History omeprazole 20 mg PO DAILY 02/13/18 06/27/18 History paroxetine HCl 5 mg PO HS 02/13/18 06/27/18 History furosemide 20 mg PO DAILY PRN 06/27/18 06/27/18 History potassium chloride 20 meq PO DAILY PRN 06/27/18 06/27/18 History Exam Vital signs: Vital Signs 07/02/18 13:15 07/02/18 16:09 07/02/18 21:01 Temperature 98.7 F 97.9 F 98.4 F Pulse Rate 80 77 90 Respiratory Rate 18 20 19 Blood Pressure 122/74 142/80 H 142/82 H Pulse Oximetry 91 L 92 L 92 L 07/03/18 01:01 07/03/18 05:01 07/03/18 06:00 Temperature 98 F 98.1 F 98 F Pulse Rate 88 70 72 Respiratory Rate 18 18 16 Blood Pressure 146/76 H 150/68 H 152/65 H Pulse Oximetry 94 L 92 L Intake & Output 07/02/18 07/03/18 07/03/18 18:59 06:59 18:59 Intake Total 1680 / 1680 480 / 480 Balance 1680 / 1680 480 / 480 Intake: Oral 1680 / 1680 480 / 480 Other: # Voids 3 2 Narrative: Physical exam completed by hospitalist risk management consultant. On my exam, patient is in no acute physical distress. No motor abnormalities noted. Labs and vitals reviewed: Laboratory Tests 07/02/18 07/02/18 08:28 08:28 Sodium 140 Potassium 3.1 L Chloride 106 Carbon Dioxide 27.0 Anion Gap 7 BUN 16 Creatinine 0.95 Estimated GFR 75 L Random Glucose 107 H Hemoglobin A1c 5.4 Calcium 8.8 Triglycerides 121 Cholesterol 146 LDL Cholesterol, Calc 79 HDL Cholesterol 42.7 Cholesterol/HDL Ratio 3.41 Mental Status Examination Appearance: Disheveled Consciousness: Alert Orientation: Person (person only) Motor Activity: Other (No motor abnormalities noted) Speech: Other (Inappropriately loud.) Language: Other (Rambling) Fund of Knowledge: Inadequate Attention and Concentration: Easily distracted Memory: Impaired Mood: Irritable Affect: Irritable Thought Process & Associations: Disorganized (in setting of dementia) Thought Content: Other (poverty of thought in setting of dementia) Hallucination Type: None Delusion Type: None Suicidal Ideation: No Homicidal Ideation: No Insight: Poor Judgment: Poor Assessment and Plan - Assessment (1) Dementia with behavioral disturbance Code(s): F03.91 - Unspecified dementia with behavioral disturbance Status: Acute - Plan Plan: Given the circumstances of patient's presentation here and his presentation on my examination today, I concur with Dr. Huertas that patient meets criteria for involuntary psychiatric hospitalization under the [place] Act. Main concern here is for possible aggression in setting of dementia, and there likely is a self-care deficit from dementia as well. I have completed second opinion paperwork. Further care as per Dr. Huertas. Thank you very much for this consultation. Signing off. Justification for Continued Inpatient Stay: Per Dr. Huertas. Request Healthcare Surrogate/Guardian Advocate?: Yes
--- NOTE | 2018-07-03 14:56 | P.PN ---
Subjective Interval history: Follow up for right leg cellulitis, acute on chronic dementia with agitation, afib, chronic anticoagulation, hx of CVA: Pt. seen and examined, sitting in chair in day room. Keeps eyes closed, opens to voice. Extremely [place]. Remains occ. agitated. Taking PO well, ate good this morning. No falls reported. Family was in earlier to visit. Unable to obtain ROS. Physical Exam Vital signs: Vital Signs 07/02/18 16:09 07/02/18 21:01 07/03/18 01:01 Temperature 97.9 F 98.4 F 98 F Pulse Rate 77 90 88 Respiratory Rate 20 19 18 Blood Pressure 142/80 H 142/82 H 146/76 H Pulse Oximetry 92 L 92 L 07/03/18 05:01 07/03/18 06:00 Temperature 98.1 F 98 F Pulse Rate 70 72 Respiratory Rate 18 16 Blood Pressure 150/68 H 152/65 H Pulse Oximetry 94 L 92 L Intake & Output 07/02/18 07/03/18 07/03/18 18:59 06:59 18:59 Intake Total 1680 / 1680 480 / 480 Balance 1680 / 1680 480 / 480 Intake: Oral 1680 / 1680 480 / 480 Other: # Voids 3 2 Narrative: GENERAL: 87-year-old elderly male, sleeping. SKIN: Warm and dry. HEAD: Atraumatic. Normocephalic. EYES: Pupils equal and round. No scleral icterus. No injection or drainage. NECK: Trachea midline. No JVD. CARDIOVASCULAR: S1-S2, unable to detect any murmurs rubs or gallops. RESPIRATORY: No accessory muscle use. Clear to auscultation. Breath sounds equal bilaterally. GASTROINTESTINAL: Abdomen soft, non-tender, nondistended. Hepatic and splenic margins not palpable. MUSCULOSKELETAL: Extremities without clubbing, cyanosis, or edema. No obvious deformities. NEUROLOGICAL: Patient sitting up in chair, eyes close, awakes to voice, mumbles. Very [place]. Moves all extremities spontaneously. PSYCHIATRIC: Unable to assess Results - Labs CBC & Chem 7: 07/02/18 08:28 Laboratory Results - last 24 hr 07/02/18 08:28 Hemoglobin A1c 5.4 Assessment and Plan - Plan 87-year-old elderly male with history of dementia, GERD, hypothyroidism, A. fib , CVA, chronic anticoagulation. Recently admitted for acute confusion superimposed on dementia and recurrent cellulitis of right lower extremity. Had recent removal of skin cancer. Dementia with behavioral disturbance Recent acute on chronic, likely exacerbated by cellulitis Continue with psychiatric management Recurrent cellulitis right lower extremity, had excision of skin cancer. Culture for Pseudomonas -Continue with Cipro, and date July 07, 2018 -Right leg has minimal erythema, no swelling, no fever. 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 fib, currently sinus rhythm Continue with Coreg 3.125 mg p.o. twice daily -Continue Eliquis History CVA Continue Eliquis -Pt. with hx of frequent falls. Pt. at risk for intracranial bleeds due to trauma. Will need to discuss with family whether Eliquis is a safe medication at this time considering worsening dementia with agitation and frequent falls. 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 They will continue to follow. 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
--- NOTE | 2018-07-03 17:04 | P.CONPAL ---
Consult Service: Palliative Care Requesting Physician: Emily Gregorio Reason for Consult: a. To assist with evaluation and management of symptoms including: confusion, agitation b. To assist medical decision maker(s) with: better understanding of current medical conditions; weighing benefits/burdens of medical treatment options; making medical treatment decisions. Primary Care Provider: UNKNOWN History of Present Illness History of Present Illness: This is an 87-year-old male who was originally brought to the [place] emergency room 07/01/18 with altered mental status, confusion and agitation. Initially he was responsive to family and would calm down but was subsequently unable to be seated by his family, psychiatry was consulted. He also presented with a nonhealing wound with erythema and swelling in the right lower extremity. Initial ED workup was negative for anything else. Per psychiatry consultation, patient family had recently become fearful due to severe agitation and aggression and/or agreeable to psychiatric evaluation/admission. Since admission to the psychiatric unit, patient has remained agitated, has had unwitnessed falls, has been hypertensive, and is at great risk for bleeding due to cost. Palliative care is been consulted to discuss goals of care with family At time of my visit today, patient is alert and calm sitting in Pamela chair at table. He is alert and cooperative with my exam. He shows me multiple ecchymotic areas where he reports he was fighting with associate store manager's. Nursing staff reports he has been calm with no recent periods of agitation or aggression. He is extremely hard of hearing, nurse feels that this may be likely contributing to his agitation. No family is available to discuss. Nurse reports family is hopeful of discharge to skilled rehab though this may be difficult due to recent behavioral changes. I was unable to reach family, left voicemails. Will try to follow-up again tomorrow. Function/Cognitive Trajectory: Patient has long history of dementia, he is recently had significant changes in behavior including aggression and agitation. He is able to walk a few feet with assistance. He is extremely hard of hearing but able to speak clearly. Review of Systems Constitutional: Denies fatigue Eyes: Denies change in vision Ears, Nose, Mouth, and Throat: Reports abnormal hearing, Reports poor balance Cardiovascular: Denies chest pain Respiratory: Denies cough, Denies wheezing Gastrointestinal: Denies abdominal pain, Denies nausea, Denies vomiting Genitourinary: Denies urinary frequency, Denies urinary urgency Musculoskeletal: Reports abnormal walking Skin/Breast: Denies change in skin color Neurologic: Reports abnormal hearing, Reports behavioral changes, Reports confusion, Reports frequent falls Psychiatric: Reports behavioral changes, Reports confusion, Reports irritability Endocrine: Denies cold intolerance Hematologic/Lymphatic: Reports easy bleeding, Reports easy bruising Allergic/Immunologic: Denies GI upset with certain foods PMFSH - History History Provided By: Family Member - Medical History Medical History: Medical History (Last Reviewed 07/03/18 @ 17:04 by CAMILLA Gimenez) Atrial fibrillation CVA (cerebral vascular accident) Aneurysm Dementia GERD (gastroesophageal reflux disease) Hypertension Hypothyroid - Surgical History Surgical History: Surgical History (Last Reviewed 07/03/18 @ 17:04 by CAMILLA Gimenez) History of femoropopliteal bypass - Family History Family History: Family History (Last Reviewed 07/03/18 @ 17:04 by CAMILLA Gimenez) Other Family history unobtainable - Tobacco History Second Hand Smoke Exposure: No Smoking Status: Never smoker - Alcohol History How Often Do You Have a Drink Containing Alcohol: Never - Substance Use History Substance History: No History of Abuse - Immunization History Tetanus Immunization: Unsure Hx Influenza Vaccine This Season: Yes Medications and Allergies Active Medications: Active Medications Acetaminophen (Tylenol) 650 mg PO Q4H PRN PRN Reason: Pain 1-5 or Temp >101F Al Hydrox/Mg Hydrox/Simethicone (Mag-Al Plus Susp Liq) 30 ml PO Q6H PRN PRN Reason: DYSPEPSIA Al Hydroxide/Mg Hydroxide (Milk Of Magnesia Liq) 30 ml PO Q12H PRN PRN Reason: Mild Constipation Al Hydroxide/Mg Hydroxide (Milk Of Magnesia Liq) 30 ml PO Q12H PRN PRN Reason: Mild Constipation Apixaban (Eliquis) 2.5 mg PO BID [facility] Last Admin: 07/03/18 09:03 Dose: 2.5 mg Carvedilol (Coreg) 3.125 mg PO BID [facility] Last Admin: 07/03/18 09:03 Dose: 3.125 mg Ciprofloxacin HCl (Cipro) 500 mg PO Q12HR [facility] Stop: 07/06/18 20:59 Last Admin: 07/03/18 09:04 Dose: 500 mg Cyanocobalamin (Vitamin B12) 1,000 mcg PO DAILY [facility] Last Admin: 07/03/18 09:04 Dose: 1,000 mcg Fludrocortisone Acetate (Florinef) 0.1 mg PO BID [facility] Last Admin: 07/03/18 09:04 Dose: 0.1 mg Furosemide (Lasix) 20 mg PO DAILY PRN PRN Reason: SEE LABEL COMMENTS Hydroxyzine HCl (Atarax) 50 mg PO Q6H PRN PRN Reason: ANXIETY Lactobacillus Acidophilus (Lactinex Pkt) 1 gm PO TID [facility] Last Admin: 07/03/18 13:29 Dose: 1 gm Levothyroxine Sodium (Synthroid) 88 mcg PO DAILY@0600 [facility] Last Admin: 07/03/18 05:36 Dose: 88 mcg Meclizine HCl (Antivert) 25 mg PO BID [facility] Last Admin: 07/03/18 09:04 Dose: 25 mg Melatonin (Melatonin) 5 mg PO HS PRN PRN Reason: INSOMNIA Multivitamins (Theragran) 1 tab PO DAILY [facility] Last Admin: 07/03/18 09:04 Dose: 1 tab Mupirocin (Bactroban 2% Oint) 1 applicatio TOPICAL BID [facility] Last Admin: 07/03/18 09:05 Dose: 1 applicatio Pantoprazole Sodium (Protonix) 20 mg PO DAILY [facility] Last Admin: 07/03/18 09:08 Dose: 20 mg Pantoprazole Sodium (Protonix) 20 mg PO DAILY [facility] Last Admin: 07/03/18 09:08 Dose: Not Given Paroxetine HCl (Paxil Liq) 5 mg PO HS [facility] Last Admin: 07/02/18 20:20 Dose: 5 mg Quetiapine Fumarate (Seroquel) 25 mg PO BID [facility] Last Admin: 07/03/18 09:04 Dose: 25 mg Vitamin D (Vitamin D3) 1,000 unit PO DAILY [facility] Last Admin: 07/03/18 09:04 Dose: 1,000 unit Allergies Allergy/AdvReac Type Severity Reaction Status Date / Time albuterol AdvReac Mild Heart Verified 06/27/18 10:41 racing Home Medications Medication Instructions Recorded Confirmed Type apixaban [Eliquis] 2.5 mg PO BID 02/13/18 06/27/18 History carvedilol 3.125 mg PO BID 02/13/18 06/27/18 History cholecalciferol (vitamin D3) 1,000 unit PO DAILY 02/13/18 06/27/18 History [Vitamin D3] cyanocobalamin (vitamin B-12) 1,000 mcg PO DAILY 02/13/18 06/27/18 History fludrocortisone 0.1 mg PO BID 02/13/18 06/27/18 History levothyroxine 88 mcg PO DAILY 02/13/18 06/27/18 History meclizine 25 mg PO BID 02/13/18 06/27/18 History omeprazole 20 mg PO DAILY 02/13/18 06/27/18 History paroxetine HCl 5 mg PO HS 02/13/18 06/27/18 History furosemide 20 mg PO DAILY PRN 06/27/18 06/27/18 History potassium chloride 20 meq PO DAILY PRN 06/27/18 06/27/18 History Advance Directives Living Will: Yes Health Care Surrogate Name and Number: Prakash Wolf Physical Exam Vital Signs: Vital Signs - 24 hr 07/02/18 21:01 07/03/18 01:01 07/03/18 05:01 Temperature 98.4 F 98 F 98.1 F Pulse Rate 90 88 70 Respiratory Rate 19 18 18 Blood Pressure 142/82 H 146/76 H 150/68 H Pulse Oximetry 92 L 94 L 07/03/18 06:00 Temperature 98 F Pulse Rate 72 Respiratory Rate 16 Blood Pressure 152/65 H Pulse Oximetry 92 L I&O: Intake & Output 07/01/18 07/02/18 07/03/18 07/04/18 06:59 06:59 06:59 06:59 Intake Total 960 / 960 2160 / 2160 Balance 960 / 960 2160 / 2160 Weight 200 kg Physical Exam: CONSTITUTIONAL/GENERAL: This is an adequately nourished patient, in no apparent distress. TUBES/LINES/DRAINS: None SKIN: Scattered ecchymotic areas to bilateral upper extremities. Left upper extremity skin tear with dressing dry and intact. HEAD: Atraumatic. Normocephalic. EYES: Pupils equal and round and reactive. Extraocular motions intact. No scleral icterus. No injection or drainage. Fundi not examined. ENT: Extremely hard of hearing. Nose without bleeding or purulent drainage. Throat without visible erythema, exudates, masses, or lesions. NECK: Trachea midline. Supple, nontender. No palpable thyroid enlargement or nodularity. CARDIOVASCULAR: Regular rate and rhythm without murmurs, gallops, or rubs. No JVD. Peripheral pulses symmetric. RESPIRATORY/CHEST: Symmetric, unlabored respirations. Clear to auscultation. Breath sounds equal bilaterally. No wheezes, rales, or rhonchi. GASTROINTESTINAL: Abdomen soft, non-tender, nondistended. No hepato-splenomegaly , or palpable masses. No guarding. Bowel sounds present. GENITOURINARY: Without palpable bladder distension. MUSCULOSKELETAL: Extremities without clubbing, cyanosis, or edema. No joint tenderness or effusion noted. No calf tenderness. No mottling or clubbing. LYMPHATICS: No palpable cervical or supraclavicular adenopathy. NEUROLOGICAL: Awake and alert. Follows commands. Confused. Moves all extremities. PSYCHIATRIC: No obvious anxiety/depression. no apparent hallucinations or other psychotic thought process. Diagnostic Tests Laboratory: Laboratory Results - last 72 hr 07/02/18 07/02/18 08:28 08:28 Sodium 140 Potassium 3.1 L Chloride 106 Carbon Dioxide 27.0 Anion Gap 7 BUN 16 Creatinine 0.95 Estimated GFR 75 L Random Glucose 107 H Hemoglobin A1c 5.4 Calcium 8.8 Triglycerides 121 Cholesterol 146 LDL Cholesterol, Calc 79 HDL Cholesterol 42.7 Cholesterol/HDL Ratio 3.41 Result Diagrams: 07/02/18 08:28 Patient/Family Conference Issues Discussed: * Palliative care role, purpose, approach * Additional medical, psychosocial, and spiritual history * Patients general health, functional status, and cognitive changes in the months leading up to the current hospitalization * Patient/family understanding of the current medical problems * Patient/family understanding of prognosis * Patients goals of care as best understood from advance directives and/or conversations and/or values * Current medical treatment options and benefits/burdens of those options * Likely scenarios comparing ongoing aggressive care with a transition to comfort measures only * Questions answered to the best of my ability * Palliative care contact information provided Assessment and Plan - Symptom Scale (1) Agitation 0-10 Scale: Unable to quantify (2) Confusion 0-10 Scale: Unable to quantify Pertinent Non-Medical Issues: Psychosocial: Prior to this hospitalization, patient was living at home with his family. Recently had worsening confusion with aggression and agitation. Spiritual: Food Safety Auditor available Legal: Patient is not capacitated to make his own decisions. It is unlikely he will regain capacity. Per [place] statutes patient's would be appropriate legal proxy if no surrogate paperwork exist. Ethical issues impacting care: None Important Contacts: Brielle Yee [phone] Son Nahid Yee [phone] Prognosis: Given patient's rapid decline in cognition along with other comorbid illnesses, patient continues on current trajectory, life expectancy is limited. He would likely be medically eligible for hospice services if goals were appropriate. Code Status: No Code DNR Plan: Legal decision maker: Patient is not capacitated to make his own decisions. Per [place] statutes, would be appropriate legal proxy provided no healthcare surrogate paperwork exist. Medical records indicate there is a living will however unable to locate in chart. Goals: Unable to reach or son. Left voicemails with both to return my call. Per bedside nurse, family is requesting rehab post discharge. CODE STATUS: DNR SYMPTOMS: --Agitation: Severely agitated, hostile towards family members. Currently under under psychiatric recommendations for medications. May likely also have infection component to acute confusion/delirium. We will continue to monitor. --Confusion: Patient has history of dementia with recent rapid decline in mental status, infection may likely be compounding confusion, as well as hospitalization and environmental change. Currently has Seroquel ordered. We will continue to monitor Palliative care will continue to follow during hospital course as condition evolves, to assist patient/decision-maker with understanding of medical conditions, weighing benefits/burdens of treatment options, for clarification of goals of treatment. Additionally will assist with any symptoms of palliative concern Appreciation Thank you for the opportunity to participate in the care of Prakash Yee.
[2018-07-03] MEDS: Acetaminophen 325 MG Tablet PO PRN (17:10)
[2018-07-03] MEDS: PARoxetine Liq 20 MG/10 ML UDC PO SCH (21:11)
[2018-07-04] MEDS: Levothyroxine 88 MCG Tablet PO SCH (06:35)
[2018-07-04] MEDS: Ciprofloxacin 500 MG Tablet PO SCH ×2 (09:13→21:04)
[2018-07-04] MEDS: QUEtiapine 25 MG Tablet PO SCH ×2 (09:13→21:04)
[2018-07-04] MEDS: Pantoprazole Sodium 20 MG DR Tablet PO SCH ×2 (09:14)
--- NOTE | 2018-07-04 10:09 | P.PNPSY ---
Subjective Remarks: Patient seen in day room with nurse Cheryl, chart reviewed, patient compliant medication. Patient continues diffusely confused but no behavioral problems. Communication with this gentleman is markedly influenced by his significant hearing loss. Though he is able to respond to written notes. For now continue treatment Review of Systems All other systems reviewed negative except as stated in HPI Mental Status Examination Appearance: Disheveled Consciousness: Alert Orientation: Person (person only) Motor Activity: Other (No motor abnormalities noted) Speech: Other (Inappropriately loud.) Language: Other (Rambling) Fund of Knowledge: Inadequate Attention and Concentration: Easily distracted Memory: Impaired Mood: Other (Euthymic to mildly irritable) Affect: Irritable (Calm her) Thought Process & Associations: Disorganized (in setting of dementia) Thought Content: Other (poverty of thought in setting of dementia) Hallucination Type: None Delusion Type: None Suicidal Ideation: No Suicidal Plan: No Suicidal Intention: No Homicidal Ideation: No Homicidal Plan: No Homicidal Intention: No Insight: Poor Judgment: Poor Assessment and Plan - Assessment (1) Dementia with behavioral disturbance Code(s): F03.91 - Unspecified dementia with behavioral disturbance Status: Acute - Plan Plan: At this time patient eloped significant behavior problems, continues diffusely confused disoriented, communication with disturbances further impeded by his difficulty hearing Justification for Continued Inpatient Stay: At this time patient would decompensate if placed in a lower level of care Discharge Planning: To be determined Request Healthcare Surrogate/Guardian Advocate?: Yes (1) Dementia with behavioral disturbance Qualifiers: Dementia type: Alzheimer's disease Alzheimer's disease onset: late-onset Qualified Code(s): G30.1 - Alzheimer's disease with late onset; F02.81 - Dementia in other diseases classified elsewhere with behavioral disturbance
--- NOTE | 2018-07-04 12:18 | P.PNPAL ---
Reason for Visit Reason for visit: a. To assist with evaluation and management of symptoms including: confusion, agitation b. To assist medical decision maker(s) with: better understanding of current medical conditions; weighing benefits/burdens of medical treatment options; making medical treatment decisions. Subjective Subjective/Interval History: This is an 87-year-old male who was originally brought to the [facility] emergency room 07/01/18 with altered mental status, confusion and agitation. Initially he was responsive to family and would calm down but was subsequently unable to be seated by his family, psychiatry was consulted. He also presented with a nonhealing wound with erythema and swelling in the right lower extremity. Initial ED workup was negative for anything else. Per psychiatry consultation, patient family had recently become fearful due to severe agitation and aggression and/or agreeable to psychiatric evaluation/admission. Since admission to the psychiatric unit, patient has remained agitated, has had unwitnessed falls, has been hypertensive, and is at great risk for bleeding due to cost. Palliative care is been consulted to discuss goals of care with family At time of my visit today, patient is alert and calm sitting in Pamela chair at table. He is alert and cooperative with my exam. He shows me multiple ecchymotic areas where he reports he was fighting with store specialist's. Nursing staff reports he has been calm with no recent periods of agitation or aggression. He is extremely hard of hearing, nurse feels that this may be likely contributing to his agitation. No family is available to discuss. Nurse reports family is hopeful of discharge to skilled rehab though this may be difficult due to recent behavioral changes. I was unable to reach family, left voicemails. Will try to follow-up again tomorrow. Family/Friend Interactions: Met with patient's and 3 children to discuss palliative services. Family report frustrations that patient has now behaviorally stable and there only allowed limited visitation. They state he has been sundowning at night and have not been able to have meaningful visits with him. Daughter states she feels initial agitation was due to staff waking the patient from sleep, him not understanding current situation, and acute infection. They state patient prior to this hospitalization was able to feed himself he is able to engage in some conversation. He was ambulatory and essentially only required assistance with bathing. They inquire about hospice services, advised them that given patient's clinical improvement and behavioral improvement, I did not feel that he was likely a candidate for hospice services at this time. They report they are hopeful that he will be discharged in the coming days to skilled rehab. Discussed possible difficulties due to documented behavioral issues. Daughter voices frustration, discussed facilities ability to care for patients, not knowing patient's baseline, and risks to other patients if he were to become acutely agitated again. Daughter states understanding. Advised they follow up with case management before the weekend to discuss facilities that will likely accept him. They state they spoke with [facility] yesterday who has already advised them that they do not usually take patients with behavioral problems. Discussed progressive nature of dementia diagnoses including risks for infection, cognitive decline, etc. family is hopeful patient will be able to progress with rehab, discussed possible limitations including him being severely hard of hearing, ability to participate due to cognitive issues, and being in unfamiliar environment with unfamiliar people. Family voices understanding however they report that they have brought the patient's hearing aids with him with plans to provided to him today which helped him to hear quite a bit better though he still is hard of hearing with hearing aids in place. Attempted to explore use of anticoagulation with risks for falls, at this time family is unwilling to stop any treatments that may hasten his . We will need to continue to reexplore in the coming days. Advance Directives Health Care Surrogate Name and Number: SonPrakash Objective Vital Signs: Vital Signs 07/03/18 18:22 07/04/18 06:25 Temperature 99.8 F H 98.8 F Pulse Rate 80 72 Respiratory Rate 18 16 Blood Pressure 117/71 130/67 Pulse Oximetry 98 92 L Intake & Output 07/03/18 07/04/18 07/04/18 18:59 06:59 18:59 Intake Total 240 / 240 240 / 240 Balance 240 / 240 240 / 240 Weight 91.4 kg Intake: Oral 240 / 240 240 / 240 Other: # Voids 1 # Incontinent Voids 3 Physical Exam: CONSTITUTIONAL/GENERAL: This is an adequately nourished patient, in no apparent distress. TUBES/LINES/DRAINS: None SKIN: Scattered ecchymotic areas to bilateral upper extremities. Left upper extremity skin tear with dressing dry and intact. HEAD: Atraumatic. Normocephalic. EYES: Pupils equal and round and reactive. Extraocular motions intact. No scleral icterus. No injection or drainage. Fundi not examined. ENT: Extremely hard of hearing. Nose without bleeding or purulent drainage. Throat without visible erythema, exudates, masses, or lesions. NECK: Trachea midline. Supple, nontender. No palpable thyroid enlargement or nodularity. CARDIOVASCULAR: Regular rate and rhythm without murmurs, gallops, or rubs. No JVD. Peripheral pulses symmetric. RESPIRATORY/CHEST: Symmetric, unlabored respirations. Clear to auscultation. Breath sounds equal bilaterally. No wheezes, rales, or rhonchi. GASTROINTESTINAL: Abdomen soft, non-tender, nondistended. No hepato-splenomegaly , or palpable masses. No guarding. Bowel sounds present. GENITOURINARY: Without palpable bladder distension. MUSCULOSKELETAL: Extremities without clubbing, cyanosis, or edema. No joint tenderness or effusion noted. No calf tenderness. No mottling or clubbing. LYMPHATICS: No palpable cervical or supraclavicular adenopathy. NEUROLOGICAL: Awake and alert. Follows commands. Confused. Moves all extremities. PSYCHIATRIC: No obvious anxiety/depression. no apparent hallucinations or other psychotic thought process. Diagnostic Tests Laboratory: Laboratory Results - last 72 hr 07/02/18 07/02/18 08:28 08:28 Sodium 140 Potassium 3.1 L Chloride 106 Carbon Dioxide 27.0 Anion Gap 7 BUN 16 Creatinine 0.95 Estimated GFR 75 L Random Glucose 107 H Hemoglobin A1c 5.4 Calcium 8.8 Triglycerides 121 Cholesterol 146 LDL Cholesterol, Calc 79 HDL Cholesterol 42.7 Cholesterol/HDL Ratio 3.41 Result Diagrams: 07/02/18 08:28 Assessment and Plan - Symptom Scale (2) Confusion 0-10 Scale: Unable to quantify (3) Pain 0-10 Scale: Unable to quantify Pertinent Non-Medical Issues: Psychosocial: Prior to this hospitalization, patient was living at home with his family. Recently had worsening confusion with aggression and agitation, family indicating this was an acute change for him. Spiritual: Authorization Specialist available Legal: Patient is not capacitated to make his own decisions. It is unlikely he will regain capacity. Family has not brought healthcare surrogate paperwork in. Per [place] statutes patient's would be appropriate legal proxy if no surrogate paperwork exist. Ethical issues impacting care: None Important Contacts: Brielle Yee [phone] Son Nahid Yee [phone] Prognosis: Patient has long history of dementia and other comorbid illnesses. At this time , he appears to be stable after treatment of acute infection. Is at risk for complications secondary to anticoagulation and falls, but will likely survive this hospitalization. Code Status: No Code DNR Plan: Legal decision maker: Patient is not capacitated to make his own decisions. Family reports copies of children being legal decision makers. Per [place] statutes, would be appropriate legal proxy provided no healthcare surrogate paperwork exist. Medical records indicate there is a living will however unable to locate in chart. Goals: Family is hopeful for discharge to long-term rehab and return home if able. Understanding he may likely need to transition to long-term care if he does not progress with rehab. Psych case maker actively seeking skilled facility that will accept patients with behavioral issues. He has already been declined from [facility] and rehab which was family's preferred choice, has also been declined by [facility]. CODE STATUS: DNR SYMPTOMS: --Agitation: Severely agitated, hostile towards family members. Currently under under psychiatric recommendations for medications. May likely also have infection component to acute confusion/delirium. We will continue to monitor. Psychiatry adjusting medications as indicated --Confusion: Patient has history of dementia with recent rapid decline in mental status, infection may likely be compounding confusion, as well as hospitalization and environmental change. Currently has Seroquel ordered. We will continue to monitor Palliative care will continue to follow during hospital course as condition evolves, to assist patient/decision-maker with understanding of medical conditions, weighing benefits/burdens of treatment options, for clarification of goals of treatment. Additionally will assist with any symptoms of palliative concern
--- NOTE | 2018-07-04 17:29 | P.PN ---
Subjective Interval history: Follow up for right leg cellulitis, acute on chronic dementia with agitation, afib, chronic anticoagulation, hx of CVA: Pt. seen and examined, eating in dining room. [place]OVEL[place]. Talking, asking when he is going home. Smiling, has no complaints. No acute changes overnight. His behavior is improved. Per RN, family is hoping he goes to rehab. Physical Exam Vital signs: Vital Signs 07/03/18 18:22 07/04/18 06:25 Temperature 99.8 F H 98.8 F Pulse Rate 80 72 Respiratory Rate 18 16 Blood Pressure 117/71 130/67 Pulse Oximetry 98 92 L Intake & Output 07/03/18 07/04/18 07/04/18 18:59 06:59 18:59 Intake Total 240 / 240 600 / 600 Balance 240 / 240 600 / 600 Weight 91.4 kg Intake: Oral 240 / 240 600 / 600 Other: # Voids 1 # Incontinent Voids 3 Narrative: GENERAL: 87-year-old elderly male, sitting in dining room eating, pleasant, demented, [place] SKIN: Warm and dry. HEAD: Atraumatic. Normocephalic. EYES: Pupils equal and round. No scleral icterus. No injection or drainage. NECK: Trachea midline. No JVD. CARDIOVASCULAR: S1-S2, soft murmur noted. RESPIRATORY: No accessory muscle use. Clear to auscultation. Breath sounds equal bilaterally. GASTROINTESTINAL: Abdomen soft, non-tender, nondistended. Hepatic and splenic margins not palpable. MUSCULOSKELETAL: Extremities without clubbing, cyanosis, or edema. No obvious deformities. NEUROLOGICAL: Patient sitting up in chair, asking when he is going home. Moving all ext. well. LOVELOCK> PSYCHIATRIC: Unable to assess Results - Labs CBC & Chem 7: 07/02/18 08:28 Assessment and Plan - Plan 87-year-old elderly male with history of dementia, GERD, hypothyroidism, A. fib , CVA, chronic anticoagulation. Recently admitted for acute confusion superimposed on dementia and recurrent cellulitis of right lower extremity. Had recent removal of skin cancer. Dementia with behavioral disturbance Recent acute on chronic, likely exacerbated by cellulitis Continue with psychiatric management Recurrent cellulitis right lower extremity, had excision of skin cancer. Culture for Pseudomonas -Continue with Cipro, and date July 07, 2018 -Right leg has minimal erythema, no swelling, no fever. -Continue with wound care -Patient is to follow-up with his cylinder filler as outpatient Status post fall, unwitnessed, unclear if there was any LOC (07/02) -Stat CT of the head ordered, no acute findings other than age-related changes Continue to monitor neurological status Fall precautions Physical therapy following Hypertension History of A. fib, currently sinus rhythm Continue with Coreg 3.125 mg p.o. twice daily -Continue Eliquis History CVA Continue Eliquis -Pt. with hx of frequent falls. Pt. at risk for intracranial bleeds due to trauma. Family wants to continue treatment for now. 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 Notes reviewed, Chely SAMPSON discussed goals of care, continue decline and risk of falls and injury while continuing on anticoagulation. Family wants to continue with treatment at this time. They hope that he can rehab. Will sign off for now, reconsult if needed. Code Status: DNR Discussed Condition With: audio video tech Planning: Per psych team
[2018-07-04] MEDS: PARoxetine Liq 20 MG/10 ML UDC PO SCH (21:04)
[2018-07-05] MEDS: Ciprofloxacin 500 MG Tablet PO SCH ×2 (08:25→22:16)
[2018-07-05] MEDS: QUEtiapine 25 MG Tablet PO SCH ×2 (08:25→22:17)
[2018-07-05] MEDS: Pantoprazole Sodium 20 MG DR Tablet PO SCH ×2 (08:35→15:22)
--- NOTE | 2018-07-05 09:49 | P.PNPSY ---
Subjective Remarks: Patient seen in day room with nurse Mathews. Chart reviewed. Patient compliant medication. Patient continues diffusely confused disoriented though no behavioral problems at this time. Some focusing on wanting to return home. His difficulty hearing remains problematic and staff's ability to help intervene care for this gentleman Review of Systems All other systems reviewed negative except as stated in HPI Mental Status Examination Appearance: Disheveled Consciousness: Alert Orientation: Person (person only) Motor Activity: Other (No motor abnormalities noted) Speech: Other (Inappropriately loud.) Language: Other (Rambling) Fund of Knowledge: Inadequate Attention and Concentration: Easily distracted Memory: Impaired Mood: Other (Euthymic to mildly irritable) Affect: Irritable (Calm her) Thought Process & Associations: Disorganized (in setting of dementia) Thought Content: Other (poverty of thought in setting of dementia) Hallucination Type: None Delusion Type: None Suicidal Ideation: No Suicidal Plan: No Suicidal Intention: No Homicidal Ideation: No Homicidal Plan: No Homicidal Intention: No Insight: Poor Judgment: Poor Assessment and Plan - Assessment (1) Dementia with behavioral disturbance Code(s): F03.91 - Unspecified dementia with behavioral disturbance Status: Acute - Plan Plan: Patient remains confused demented with his difficulty hearing that does impede staff's ability to assist him. Otherwise no behavioral problems and compliant medication Justification for Continued Inpatient Stay: At this time patient with decompensated placed in a lower level of care Discharge Planning: To be determined in conjunction with patient's family Request Healthcare Surrogate/Guardian Advocate?: Yes (1) Dementia with behavioral disturbance Qualifiers: Dementia type: Alzheimer's disease Alzheimer's disease onset: late-onset Qualified Code(s): G30.1 - Alzheimer's disease with late onset; F02.81 - Dementia in other diseases classified elsewhere with behavioral disturbance
[2018-07-05] MEDS: PARoxetine Liq 20 MG/10 ML UDC PO SCH (22:18)
[2018-07-06] MEDS: Levothyroxine 88 MCG Tablet PO SCH (06:46)
[2018-07-06] MEDS: Pantoprazole Sodium 20 MG DR Tablet PO SCH ×2 (07:33→10:45)
[2018-07-06] MEDS: Ciprofloxacin 500 MG Tablet PO SCH (08:39)
[2018-07-06] MEDS: QUEtiapine 25 MG Tablet PO SCH ×2 (08:49→20:56)
--- NOTE | 2018-07-06 13:04 | P.PNPSY ---
Subjective Remarks: Reviewed electronic medical records and discussed case with staff. Follow-up was conducted in the day room with ADAMA Mathews present as well as the patient's daughter and son-in-law. His nurse reports that he is very hard of hearing. Has been compliant with his medications and had no behavioral issues. The patient is extremely vocal with complaints about staff specifically that he was not brought a jacket when he requested one. His family states that they are planning on placing him at [facility] or hopeful for discharge today however, Abena the counselor spoke with the administrators who state they will be out to see the patient on Sunday. I spoke with the family and advised them of the situation. Patient continues to be confused. Mental Status Examination Appearance: Disheveled Consciousness: Alert Orientation: Person (person only) Motor Activity: Other (No motor abnormalities noted) Speech: Other (Inappropriately loud.) Language: Other (Rambling) Fund of Knowledge: Inadequate Attention and Concentration: Easily distracted Memory: Impaired Mood: Other (Euthymic to mildly irritable) Affect: Irritable (Calm her) Thought Process & Associations: Disorganized (in setting of dementia) Thought Content: Other (poverty of thought in setting of dementia) Hallucination Type: None Delusion Type: None Suicidal Ideation: No Suicidal Plan: No Suicidal Intention: No Homicidal Ideation: No Homicidal Plan: No Homicidal Intention: No Insight: Poor Judgment: Poor Assessment and Plan - Assessment (1) Dementia with behavioral disturbance Code(s): F03.91 - Unspecified dementia with behavioral disturbance Status: Acute - Plan Plan: Patient will be reevaluated by the attending psychiatrist. Continue with current treatment plan. Justification for Continued Inpatient Stay: Moving this patient to a less restrictive environment would likely result in decompensation. A discharge plan is in place for Sunday. Request Healthcare Surrogate/Guardian Advocate?: Yes (1) Dementia with behavioral disturbance Qualifiers: Dementia type: Alzheimer's disease Alzheimer's disease onset: late-onset Qualified Code(s): G30.1 - Alzheimer's disease with late onset; F02.81 - Dementia in other diseases classified elsewhere with behavioral disturbance
[2018-07-06] MEDS: PARoxetine Liq 20 MG/10 ML UDC PO SCH (20:56)
[2018-07-07] MEDS: Levothyroxine 88 MCG Tablet PO SCH (06:29)
[2018-07-07] MEDS: Pantoprazole Sodium 20 MG DR Tablet PO SCH (07:33)
[2018-07-07] MEDS: QUEtiapine 25 MG Tablet PO SCH ×2 (08:30→20:50)
--- NOTE | 2018-07-07 14:49 | P.PNPSY ---
Subjective Remarks: Patient seen and examined with nurse in coverage for Dr. Huertas. Chart reviewed. Case discussed with nursing staff. Patient is out for visitation with family. and sister are visiting with patient. Patient appears to be tolerating medications well without side effects. He is calm and cooperative but remains confused as at recent baseline. No evidence of physical distress. Vital Signs Temp Pulse Resp BP Pulse Ox 07/07/18 06:06 97.6 F 84 18 99/52 L 92 L 07/07/18 06:00 98.3 F 75 18 122/59 L 95 07/06/18 18:00 99 F 79 18 129/69 91 L Intake and Output 07/07/18 07/07/18 07/07/18 06:59 14:59 22:59 Intake Total 720 / 720 Balance 720 / 720 Intake: Oral 720 / 720 Labs reviewed. Review of Systems other (Limited ROS today) Mental Status Examination Appearance: Disheveled Consciousness: Alert Orientation: Person (person only) Motor Activity: Other (No abnormal motor movements noted) Speech: Other (Inappropriately loud.) Language: Other (Some poverty of speech) Fund of Knowledge: Inadequate Attention and Concentration: Easily distracted Memory: Impaired Mood: Appropriate Affect: Euthymic Thought Process & Associations: Disorganized (in setting of dementia) Thought Content: Other (poverty of thought in setting of dementia, ongoing) Hallucination Type: None Delusion Type: None Suicidal Ideation: No Homicidal Ideation: No Insight: Poor Judgment: Poor Assessment and Plan - Assessment (1) Dementia with behavioral disturbance Code(s): F03.91 - Unspecified dementia with behavioral disturbance Status: Acute - Plan Plan: Continue Seroquel as ordered. Continue to monitor on the inpatient unit. Continue other medications and care as ordered. Justification for Continued Inpatient Stay: Risk for decompensation in less restrictive environment. Discharge Planning: Per Dr. Huertas Request Healthcare Surrogate/Guardian Advocate?: Yes (1) Dementia with behavioral disturbance Qualifiers: Dementia type: Alzheimer's disease Alzheimer's disease onset: late-onset Qualified Code(s): G30.1 - Alzheimer's disease with late onset; F02.81 - Dementia in other diseases classified elsewhere with behavioral disturbance
[2018-07-07] MEDS: Acetaminophen 325 MG Tablet PO PRN (18:22)
[2018-07-07] MEDS: PARoxetine Liq 20 MG/10 ML UDC PO SCH (20:49)
[2018-07-08] MEDS: Levothyroxine 88 MCG Tablet PO SCH ×2 (05:47→07:31)
[2018-07-08] MEDS: Acetaminophen 325 MG Tablet PO PRN ×2 (05:47→19:41)
[2018-07-08] MEDS: QUEtiapine 25 MG Tablet PO SCH ×2 (08:47→21:05)
[2018-07-08] MEDS: Pantoprazole Sodium 20 MG DR Tablet PO SCH (08:48)
--- NOTE | 2018-07-08 09:42 | P.DSPSY ---
Psychiatry Discharge Summary Inpatient Psychiatric care?: Yes Advance Directives: Yes Reason for Unknown:: Due to Patient Condition Mental Health Advance Directive: Unknown Health Care Proxy: Unknown - Admission Admission Date: July 01, 2018 16:12 - Admission Diagnosis (1) Dementia with behavioral disturbance Code(s): F03.91 - Unspecified dementia with behavioral disturbance Brief History: Late entry. The patient was seen July 01, 2018 This is an 87-year-old man, domiciled his in [place], retired , with a psychiatric history of dementia, depression, but no previous psychiatric hospitalizations, no previous suicidal attempts, he has been in Seroquel 25 mg twice a day for behavioral control, Paxil 5 mg, with a past medical history of CVA, TIA, 4.1 cm AAA, atrial fibrillation and hypertension who was brought to the [place] emergency room after showing significant alteration of mental status, confusion and agitation at about 3:30 AM on 06/27. He had recently been seen by his physician to evaluate right leg swelling and discomfort and nonhealing wound on the right anaya status post skin cancer removal. He had been started on antibiotics by his PCP due to some erythema, warmth and redness around the right lower extremity. Patient presented as aggressive and combative, however responded well to family. EKG shows sinus rhythm, QTc is 428.CT of the head without contrast shows no evidence of acute intracranial pathology, no masses. WBC 8.9, hemoglobin 13.4, hematocrit 39.2, platelets 1, sodium 141, potassium 3.8, BUN 16, creatinine 1.20, calcium 8.4, magnesium 2.0. Chart has been reviewed, patient was discussed with primary medical team. Collateral information from her family also obtained. On my psychiatric evaluation this morning the patient is found agitated, trying to get out of the bed, stating that he needs to go home today and he needs help. The patient is very difficult and extremely hard of hearing. He cannot even answer his name. He seems to be quite confused, completely disoriented and unable to provide any meaningful information for the psychiatric assessment at the moment. However I spoke with Fabi Bricsoe, his daughter, and she has tells me that the patient has been recently agitated, at times verbally hostile and aggressive and very confused. She tells me that this is not characteristic in her father, he has dementia, but he usually recognizes his family, is able to be independent in taking showers, walking in the house, getting dressed, recently has been not doing this. They are very afraid of his safety and the safety of her mother due his Mental status and his agitation. The family has agreed that the patient should be admitted in a psychiatric millan to be helped to calm down. Tobacco Use In Past 30 Days: No How Often Do You Have a Drink Containing Alcohol: Never Hospital Course: Patient's hospital course was uneventful this confusion and cognitive deficits were evident and somewhat exacerbated by his difficulty with hearing. He showed compliance with medication. He was no significant behavioral problems. He denies suicidality or voices. He was a bed available today hospital for behavioral medicine. At this time patient reached maximum benefit of this hospitalization but she will be discharged today to that facility with Rx times 1 month to follow-up services through that facility - Discharge Discharge Date: 07/08/18 - Discharge Diagnosis (1) Dementia with behavioral disturbance Code(s): F03.91 - Unspecified dementia with behavioral disturbance Status: Acute Discharge Disposition: Custodial Facility - Discharge Instructions Discharge Diet: Regular Diet Activities You Can Perform: Regular- No Restrictions - Discharge Time > 30 minutes Mental Status Examination Appearance: Disheveled Consciousness: Alert Orientation: Person (person only) Motor Activity: Other (No abnormal motor movements noted) Speech: Other (Inappropriately loud.) Language: Other (Some poverty of speech) Fund of Knowledge: Inadequate Attention and Concentration: Easily distracted Memory: Impaired Mood: Appropriate Affect: Euthymic Thought Process & Associations: Disorganized (in setting of dementia) Thought Content: Other (poverty of thought in setting of dementia, ongoing) Hallucination Type: None Delusion Type: None Suicidal Ideation: No Suicidal Plan: No Suicidal Intention: No Homicidal Ideation: No Homicidal Plan: No Homicidal Intention: No Insight: Poor Judgment: Poor Discharge/Advance Care Plan - Results Vital Signs: Last Vital Signs Temp 98.1 F 07/08/18 06:00 Pulse 81 07/08/18 06:00 Resp 18 07/08/18 06:00 BP 156/67 H 07/08/18 06:00 Pulse Ox 99 07/08/18 06:00 Lab Results: Laboratory Results Hemoglobin A1c 5.4 % (4.3-6.0) 07/02/18 08:28 Triglycerides 121 mg/dL (42-150) 07/02/18 08:28 Cholesterol 146 mg/dL (120-200) 07/02/18 08:28 LDL Cholesterol, Calc 79 mg/dL (0-99) 07/02/18 08:28 HDL Cholesterol 42.7 mg/dL (40.0-60.0) 07/02/18 08:28 Summary of Procedures: None done Imaging: ITS Impressions Head CT 07/02/18 08:44 CONCLUSION: 1. No acute hemorrhage or mass effect. 2. Atrophy and chronic small vessel ischemic changes again noted. . Pending Results: None - Medications Number of antipsychotic medications at discharge: 1 - Discharge Care Plan Goals to Promote Your Health: * To prevent worsening of your condition and complications * To maintain your health at the optimal level Directions to Meet Your Goals: Take your medications as prescribed Follow your dietary instruction Follow activity as directed Keep your appointments as scheduled Take your immunizations and boosters as scheduled If your symptoms worsen call your PCP, if no PCP go to Urgent Care Center or Emergency Room For 12/02 questions related to your inpatient stay or results of tests pending at discharge, please contact Dr. Alphonse Huertas MD at Smoking is Dangerous to Your Health. Avoid second hand smoking (1) Dementia with behavioral disturbance Qualifiers: Dementia type: Alzheimer's disease Alzheimer's disease onset: late-onset Qualified Code(s): G30.1 - Alzheimer's disease with late onset; F02.81 - Dementia in other diseases classified elsewhere with behavioral disturbance (1) Dementia with behavioral disturbance Qualifiers: Dementia type: Alzheimer's disease Alzheimer's disease onset: late-onset Qualified Code(s): G30.1 - Alzheimer's disease with late onset; F02.81 - Dementia in other diseases classified elsewhere with behavioral disturbance
[2018-07-08] MEDS: PARoxetine Liq 20 MG/10 ML UDC PO SCH (21:06)
[2018-07-09] MEDS: Levothyroxine 88 MCG Tablet PO SCH (06:15)
[2018-07-09] MEDS: Pantoprazole Sodium 20 MG DR Tablet PO SCH (08:39)
[2018-07-09] MEDS: QUEtiapine 25 MG Tablet PO SCH ×2 (08:39→23:02)
--- NOTE | 2018-07-09 12:34 | P.PNPSY ---
Subjective Remarks: Patient's discharge had to be delayed. It appears her insurance company has been demanding more and more details before approving of the placement that is been found and agreed upon by that facility. Patient is seen today in the day room with his and daughter. He is calm and cooperative continues diffusely confused continues with his difficulty with hearing but overall no behavioral problem. Hopefully the insurability issues will be resolved and patient can be discharged today to [facility] Review of Systems All other systems reviewed negative except as stated in HPI Mental Status Examination Appearance: Appropriate, Disheveled Consciousness: Alert Orientation: Person (person only) Motor Activity: Other (No abnormal motor movements noted) Speech: Other (Inappropriately loud.) Language: Other (Some poverty of speech) Fund of Knowledge: Inadequate Attention and Concentration: Easily distracted Memory: Impaired Mood: Appropriate Affect: Euthymic Thought Process & Associations: Disorganized (in setting of dementia) Thought Content: Other (poverty of thought in setting of dementia, ongoing) Hallucination Type: None Delusion Type: None Suicidal Ideation: No Suicidal Plan: No Suicidal Intention: No Homicidal Ideation: No Homicidal Plan: No Homicidal Intention: No Insight: Poor Judgment: Poor Assessment and Plan - Assessment (1) Dementia with behavioral disturbance Code(s): F03.91 - Unspecified dementia with behavioral disturbance Status: Acute - Plan Plan: We will continue to await approval of insurance company for patient to be discharged to his receiving facility. Otherwise have been no change in his behavior medications or treatment. Hopefully discharged in be made today Justification for Continued Inpatient Stay: At this time patient would decompensate if not placed in an appropriate level of care Discharge Planning: Awaiting word from [employer] about approval Request Healthcare Surrogate/Guardian Advocate?: Yes (1) Dementia with behavioral disturbance Qualifiers: Dementia type: Alzheimer's disease Alzheimer's disease onset: late-onset Qualified Code(s): G30.1 - Alzheimer's disease with late onset; F02.81 - Dementia in other diseases classified elsewhere with behavioral disturbance
[2018-07-09] MEDS: PARoxetine Liq 20 MG/10 ML UDC PO SCH (22:58)
[2018-07-10] MEDS: Levothyroxine 88 MCG Tablet PO SCH (05:05)
[2018-07-10] MEDS: Pantoprazole Sodium 20 MG DR Tablet PO SCH (08:45)
[2018-07-10] MEDS: QUEtiapine 25 MG Tablet PO SCH (08:46)
--- NOTE | 2018-07-10 12:12 | P.PNPSY ---
Subjective Remarks: The insurance forms have not been completed. There is a bed available for this patient at [facility] re[facility]. Patient to be discharged today to that facility no discharge order has been written. There is been an addendum made to the discharge summary dictated 2 days ago. Patient seen today he continues diffusely confused disoriented and demented with the additional difficulty of his severe hearing impairment. Thus patient to be discharged today Review of Systems All other systems reviewed negative except as stated in HPI Mental Status Examination Appearance: Appropriate, Disheveled Consciousness: Alert Orientation: Person (person only) Motor Activity: Other (No abnormal motor movements noted) Speech: Other (Inappropriately loud.) Language: Other (Some poverty of speech) Fund of Knowledge: Inadequate Attention and Concentration: Easily distracted Memory: Impaired Mood: Appropriate Affect: Euthymic Thought Process & Associations: Disorganized (in setting of dementia) Thought Content: Other (poverty of thought in setting of dementia, ongoing) Hallucination Type: None Delusion Type: None Suicidal Ideation: No Suicidal Plan: No Suicidal Intention: No Homicidal Ideation: No Homicidal Plan: No Homicidal Intention: No Insight: Poor Judgment: Poor Assessment and Plan - Assessment (1) Dementia with behavioral disturbance Code(s): F03.91 - Unspecified dementia with behavioral disturbance Status: Acute - Plan Plan: Discharge today to [facility] Justification for Continued Inpatient Stay: Discharge today to [facility] Discharge Planning: Discharged to the [facility] Request Healthcare Surrogate/Guardian Advocate?: Yes (1) Dementia with behavioral disturbance Qualifiers: Dementia type: Alzheimer's disease Alzheimer's disease onset: late-onset Qualified Code(s): G30.1 - Alzheimer's disease with late onset; F02.81 - Dementia in other diseases classified elsewhere with behavioral disturbance
--- NOTE | 2018-07-10 13:31 | P.TTN ---
- Patient Problems Problems: 1. Discharge planning 2. Medication compliance 3. Knowledge deficit 4. Lack of coping skills - Progress Toward Goals Provider Present: Dr. Karel Huertas Provider Input: 07/10/18 Patient has been accepted to [facility] today. 07/08/18 The plan is for the patient to be discharged to [facility] in [place] hopefully today. All paperwork was sent on Sunday07/05/18. 07/03/18 Patient's doctor reports patient was pleasant, but disorganized in thought. Medication compliant. Nurse Input: 07/10/18 Patient is cooperative with no behavioral problems on the unit. 07/08/18 Patient remains cooperative and no behavioral problems on the unit. 07/03/18 Patient's nurse resports patient is cooperative, slept 7 hour but had difficulty remaining asleep. Patient fell yesterday with no incident Psychiatric Counselors Present: Kati Hobson [facility], Other Psychiatric Therapist Input: 07/10/18 Patient is being discharged to [facility] today. [facility] will provide transportation. Patient's family has been notified. Patient is happy and looking forward to leave. 07/08/18 Bianca Rucker, RN from [facility] came to evaluate the patient. Is pending approval from her lease administration supervisor. Family made aware. [facility] requested more recent notes which were faxed this morning. 07/03/18 Patient presented tired, non verbal. Medication compliant. Passar and [phone] faxed to [facility] today Group Spec/RT/OT/GUO Present: Norma Peralta, GPS, Clem Cantu, OT Group Spec/RT/OT/GUO Input: 07/10/18 Patient is not able to tolerate groups. 07/03/18 Patient not able to tolerate groups. - Documentation Teaching Recipient: Patient
== END 2018-07-10 13:50 ==
LOC: H250 16:12
PROVIDERS: ADMIT Psychiatry & Neurology Psychiatry; ATTEND Psychiatry & Neurology Psychiatry

== ENCOUNTER 2018-07-23 13:20 | Observation (INO) ==
--- NOTE | 2018-07-23 14:19 | ED ---
HPI General Chief complaint: Medical Clearance Stated complaint: Here for Eval Time Seen by Provider: 07/23/18 13:55 Source: family, RN notes reviewed and old records reviewed Mode of arrival: wheelchair Limitations: other (history of dementia) History of Present Illness HPI narrative: 87yM brought in by family for social issue. The patient's family states that he was discharged home from [facility] 4 days ago and they are unable to take care of him. The patient has a history of dementia with sun- downing and is unable to ambulate independently or perform any ADLs, requires 1- 2 person assist for all care, but was discharged home with his elderly who is unable to care for him on her own. The family deny any physical symptoms, specifically no fevers/ chills, cough, vomiting, diarrhea, or urinary frequency. At baseline, he is not oriented to place or time. Related Data Home Medications Medication Instructions Recorded Confirmed alprazolam 0.25 mg PO Q8HR PRN 07/23/18 07/23/18 cholecalciferol (vitamin D3) 2,000 unit PO DAILY 07/23/18 07/23/18 [Vitamin D3] cholecalciferol (vitamin D3) 2,000 unit PO DAILY 07/23/18 07/23/18 [Vitamin D3] cyanocobalamin (vitamin B-12) 1,000 mcg PO DAILY 07/23/18 07/23/18 [Vitamin B-12] furosemide [Lasix] 20 mg PO DAILY PRN 07/23/18 07/23/18 meclizine 25 mg PO PRN PRN 07/23/18 07/23/18 omeprazole 20 mg PO DAILY 07/23/18 07/23/18 potassium chloride 20 meq PO DAILY PRN 07/23/18 07/23/18 Previous Rx's Medication Instructions Recorded apixaban [Eliquis] 2.5 mg PO BID #60 tab 07/08/18 carvedilol [Coreg] 3.125 mg PO BID #60 tab 07/08/18 cyanocobalamin (vitamin B-12) 1,000 mcg PO DAILY #30 tab 07/08/18 [Vitamin B-12] fludrocortisone 0.1 mg PO BID #60 tab 07/08/18 furosemide 20 mg PO DAILY PRN #30 tab 07/08/18 levothyroxine [Synthroid] 88 mcg PO DAILY@0600 #30 tab 07/08/18 paroxetine HCl 5 mg PO HS #30 tab 07/08/18 Allergies Allergy/AdvReac Type Severity Reaction Status Date / Time albuterol AdvReac Mild Heart Verified 07/23/18 13:47 racing Review of Systems ROS Unobtainable ROS Unobtainable: unobtainable due to mental status PMFSH History History Provided By: Family Member, Significant Other and Medical Record Social History Social History Substance History: No History of Abuse Second Hand Smoke Exposure: No Smoking Status: Former smoker How Often Do You Have a Drink Containing Alcohol: 4 or more times a week Recent Travel in [facility] within the Last 8 Weeks: No Recent Out of Country Travel within the Last 8 Weeks: No Exam Const General: healthy appearing and frail appearing HENMT Face and sinus: normal facial exam Eyes General: appearance normal, both eyes and all related structures Resp Effort & Inspection: normal respiratory effort Auscultation: no rhonchi and no wheezes Cardio Rate: regular rate Rhythm: regular rhythm GI Inspection: non-distended Palpation: soft and nontender Skin General: no rashes or lesions noted Neuro Other: Hard of hearing Oriented to person and time but not place Moves all extremities, follows commands Appears confused Course Reevaluation(s) Reevaluation #1: Patient evaluated by registered nurse hh case manager, awaiting evaluation by [facility]. Time: 17:00 Initial Documented Vital Signs Temperature 99.1 F 07/23/18 13:43 Pulse Rate 80 07/23/18 13:43 Respiratory Rate 16 07/23/18 13:43 Blood Pressure 99/63 L 07/23/18 13:43 Pulse Oximetry 95 07/23/18 13:43 Last Documented Vital Signs Temperature 99.1 F 07/23/18 13:43 Pulse Rate 84 07/23/18 17:18 Respiratory Rate 16 07/23/18 17:18 Blood Pressure 118/74 07/23/18 17:18 Pulse Oximetry 93 L 07/23/18 17:18 Medical Decision Making MDM Narrative Medical decision making narrative: Assessment: 87yM presenting with dementia, deconditioning, inability to care for himself at home Plan: Will check basic labs and UA for medical screening D/W registered nurse hh case manager to find placement Addendum: Patient found to have XIAO and UTI, given rocephin. [facility] evaluated patient, home hospice is set up for tomorrow. Case discussed with Dr. Ann of [facility]- patient will need IV antibiotics/ fluids/ repeat labs in AM. Family understands and agrees with plan. Medical Screen Exam Complete: Yes Emergency Medical Condition: Yes Differential Diagnosis Differential Diagnosis: Differential diagnosis includes, but is not limited to: dehydration, electrolyte abnormality, UTI Medical Records Medical records reviewed: Yes I reviewed the patient's medical records. Lab Data Lab results reviewed: Yes I reviewed the patient's lab results. Result diagrams: 07/23/18 14:24 07/23/18 14:24 Lab Results 07/23/18 07/23/18 07/23/18 Range/Units 14:24 14:24 16:04 CBC w Diff Auto diff final WBC 4.6 (4.0-11.0) th/mm3 RBC 4.13 L (4.50-5.90) mil/mm3 Hgb 13.3 (13.0-17.0) gm/dL Hct 40.9 (39.0-51.0) % MCV 99.1 (80.0-100.0) fL MCH 32.2 (27.0-34.0) pg MCHC 32.5 (32.0-36.0) % RDW 13.5 (11.6-17.2) % Plt Count 136 L (150-450) th/mm3 MPV 8.7 (7.0-11.0) fL Neut % (Auto) 70.2 H (16.0-70.0) % Lymph % (Auto) 18.0 (9.0-44.0) % [place] % (Auto) 7.2 (0.0-8.0) % Eos % (Auto) 4.2 H (0.0-4.0) % Baso % (Auto) 0.4 (0.0-2.0) % Neut # (Auto) 3.3 (1.8-7.7) th/mm3 Lymph # (Auto) 0.8 L (1.0-4.8) th/mm3 [place] # (Auto) 0.3 (0.0-0.9) th/mm3 Eos # (Auto) 0.2 (0.0-0.4) th/mm3 Baso # (Auto) 0.0 (0.0-0.2) th/mm3 WBC Differential . Differential Comment . Sodium 138 (136-145) meq/L Potassium 4.2 (3.5-5.1) meq/L Chloride 105 (98-107) meq/L Carbon Dioxide 25.9 (21.0-32.0) meq/L Anion Gap 7 (5-15) meq/L BUN 23 H (7-18) mg/dL Creatinine 1.40 H (0.60-1.30) mg/dL Estimated GFR 48 L (>89) mL/min Random Glucose 96 (74-106) mg/dL Calcium 8.5 (8.5-10.1) mg/dL Total Bilirubin 0.7 (0.2-1.0) mg/dL AST 24 (15-37) U/L ALT 16 (12-78) U/L Alkaline Phosphatase 85 (45-117) U/L Total Protein 7.8 (6.4-8.2) g/dL Albumin 3.1 L (3.4-5.0) g/dL Urine Color Yellow (Yellw/Straw) Urine Clarity Slightly cloudy (Clear) Urine pH 6.0 (5.0-8.5) Ur Specific [place] 1.025 (1.002-1.035) Urine Protein Negative (Neg-Trace) mg/dL Urine Glucose (UA) Negative (Negative) mg/dL Urine Ketones Negative (Negative) mg/dL Urine Occult Blood Moderate H (Negative) Urine Nitrate Negative (Negative) Urine Bilirubin Negative (Negative) Urine Urobilinogen 0.2 (Less than 2) mg/dL Ur Leukocyte Esterase Trace H (Negative) Urine RBC 15-50 H (0-3) /hpf Urine WBC 0-5 (0-5) /hpf Calcium Oxalate Crystal Rare H (None) /hpf Urine Bacteria Rare H (None) /hpf Hyaline Casts 0-3 (0-3) /lpf Urine Mucus Few H (Occasional) /lpf Micro UA Comment Cath-culture ind Ur Microscopic Review Microscopic reviewed Urine Culture Comments Cath-cult indicated Discharge Plan Discharge Disposition Patient Disposition: ED Admit(ED Internal Use Only) Discharge Condition Condition: Stable Discharge Order Discharge Orders: ED Use Only Admit Order (Routine); Ordered 07/23/18 Ordered By: Gisela Heart Discharge Details Diagnosis: XIAO (acute kidney injury), Acute UTI Physicians Team ED Provider: Gisela Heart Primary Care Provider: Jessie Jay Attending Provider: Bianca Ann Discharge Interventions Interventions: Vital Signs Last Done: 07/23/18 17:18 Status ED Status: Admitted Observation Patient
[2018-07-23 14:45] LABS: Baso % (Auto) 0.4 % (0.0-2.0); Eos # (Auto) 0.2 th/mm3 (0.0-0.4); Eos % (Auto) 4.2 % (0.0-4.0); Hematocrit 40.9 % (39.0-51.0); Hemoglobin 13.3 gm/dL (13.0-17.0); Lymph # (Auto) 0.8 th/mm3 (1.0-4.8); Mean Corpuscular HGB Conc 32.5 % (32.0-36.0); Mean Corpuscular Hemoglobin 32.2 pg (27.0-34.0); Mean Corpuscular Volume 99.1 fL (80.0-100.0); Mean Platelet Volume 8.7 fL (7.0-11.0); Mono # (Auto) 0.3 th/mm3 (0.0-0.9); Mono % (Auto) 7.2 % (0.0-8.0); Neut # (Auto) 3.3 th/mm3 (1.8-7.7); Neut % (Auto) 70.2 % (16.0-70.0); Platelet Count 136 th/mm3 (150-450); Red Blood Count 4.13 mil/mm3 (4.50-5.90); Red Cell Distribution Width 13.5 % (11.6-17.2); White Blood Count 4.6 th/mm3 (4.0-11.0)
[2018-07-23 14:52] LABS: Chloride 105 meq/L (98-107); Potassium 4.2 meq/L (3.5-5.1); Sodium 138 meq/L (136-145)
[2018-07-23 14:55] LABS: Calcium 8.5 mg/dL (8.5-10.1)
[2018-07-23 14:56] LABS: Albumin 3.1 g/dL (3.4-5.0); Anion Gap 7 meq/L (5-15); Blood Urea Nitrogen 23 mg/dL (7-18); Carbon Dioxide 25.9 meq/L (21.0-32.0); Glucose,Random 96 mg/dL (74-106)
[2018-07-23 14:59] LABS: Alanine Aminotransferase 16 U/L (12-78); Aspartate Aminotransferase 24 U/L (15-37); Glomerular Filtration Rate 48 mL/min (>89)
[2018-07-23 15:01] LABS: Total Protein 7.8 g/dL (6.4-8.2)
[2018-07-23 15:02] LABS: Alkaline Phosphatase 85 U/L (45-117)
[2018-07-23] MEDS ORDERED: Sod Chloride 0.9% Inj 1,000 ML IV.SIG ONE (15:04)
[2018-07-23 16:11] LABS: Bilirubin,Urine Negative (Negative); Clarity,Urine Slightly Cloudy (Clear); Color,Urine Yellow (Yellw/Straw); Glucose,Urine (UA) Negative (Negative); Leukocyte Esterase,Urine Trace (Negative); Nitrite,Urine Negative (Negative); Specific Gravity,Urine 1.025 (1.002-1.035); Urobilinogen,Urine 0.2 mg/dL (Less than 2)
[2018-07-23 16:24] LABS: WBC,Urine 0-5 /hpf (0-5)
[2018-07-23 16:25] LABS: Bacteria,Urine Rare /hpf; Calcium Oxalate Crystals,Urine Rare /hpf; Hyaline Casts,Urine 0-3 /lpf (0-3); Mucus,Urine Few /lpf (Occasional)
[2018-07-23] MEDS ORDERED: Acetaminophen 325 MG Tablet PO PRN (19:52)
[2018-07-23] MEDS: Sod Chloride 0.9% Inj 1,000 ML IV.CONT SCH (21:25)
[2018-07-24 06:22] LABS: Baso % (Auto) 0.3 % (0.0-2.0); Eos # (Auto) 0.2 th/mm3 (0.0-0.4); Eos % (Auto) 3.9 % (0.0-4.0); Hematocrit 35.5 % (39.0-51.0); Hemoglobin 11.7 gm/dL (13.0-17.0); Lymph % (Auto) 25.3 % (9.0-44.0); Mean Corpuscular Hemoglobin 32.3 pg (27.0-34.0); Mean Corpuscular Volume 97.9 fL (80.0-100.0); Mean Platelet Volume 8.1 fL (7.0-11.0); Mono # (Auto) 0.3 th/mm3 (0.0-0.9); Neut # (Auto) 2.5 th/mm3 (1.8-7.7); Neut % (Auto) 62.5 % (16.0-70.0); Platelet Count 120 th/mm3 (150-450); Red Blood Count 3.62 mil/mm3 (4.50-5.90)
[2018-07-24 06:31] LABS: Potassium 3.9 meq/L (3.5-5.1)
[2018-07-24 06:38] LABS: Calcium 7.9 mg/dL (8.5-10.1)
[2018-07-24 06:39] LABS: Carbon Dioxide 25.7 meq/L (21.0-32.0)
[2018-07-24] MEDS: Sod Chloride 0.9% Inj 1,000 ML IV.CONT SCH ×2 (08:11→10:38)
[2018-07-24] MEDS ORDERED: Furosemide 20 MG Tablet PO PRN (13:20)
[2018-07-24] MEDS ORDERED: ALPRAZolam 0.25 MG Tablet PO PRN (13:20)
--- NOTE | 2018-07-24 13:20 | P.HPIM ---
History of Present Illness Primary Care Physician: Jessie Jay Chief Complaint: Unable to care for self at home History of Present Illness: 87-year-old male with known history of dementia who apparently was recently admitted to hospital and discharged to [facility] and was released from there 4 days ago. Once the patient got home apparently the patient is unable to care for his self and he is a 1-2 person assist for all care. Because his is elderly and unable to assist him the family brought him to the hospital for evaluation. The patient does have dementia he is orientated to person, city, state, month, year however he does not know why he is at the hospital, he indicates he was brought here for me to tell him that it is okay for him to go home. ER documentation indicates that the family brought the patient to the hospital because they are unable to care for him at home. It is documented that the ER physician would have the patient admitted to the hospital for hospice evaluation and case management evaluation. Incidentally the patient had laboratory studies which did indicate some mild renal insufficiency as well as possible urinary tract infection. Patient is asymptomatic at this time. Review of Systems ROS Unobtainable: unobtainable due to mental status [facility] Medical History Medical History Aneurysm (Acute) Atrial fibrillation (Acute) CVA (cerebral vascular accident) (Acute) Dementia (Acute) GERD (gastroesophageal reflux disease) (Acute) Hypertension (Acute) Hypothyroid (Acute) Surgical History Surgical History History of femoropopliteal bypass (Acute) Family History Family History Other Family history unobtainable Social History Social History Substance History: No History of Abuse Second Hand Smoke Exposure: No Smoking Status: Former smoker How Often Do You Have a Drink Containing Alcohol: 4 or more times a week Recent Travel in [facility] within the Last 8 Weeks: No Recent Out of Country Travel within the Last 8 Weeks: No Immunization History Tetanus Immunization: <5 Years Medications and Allergies Allergies Allergy/AdvReac Type Severity Reaction Status Date / Time albuterol AdvReac Mild Heart Verified 07/23/18 13:47 racing Home Medications Medication Instructions Recorded Confirmed Type alprazolam 0.25 mg PO Q8HR PRN 07/23/18 07/23/18 History cholecalciferol (vitamin D3) 2,000 unit PO DAILY 07/23/18 07/23/18 History [Vitamin D3] cholecalciferol (vitamin D3) 2,000 unit PO DAILY 07/23/18 07/23/18 History [Vitamin D3] cyanocobalamin (vitamin B-12) 1,000 mcg PO DAILY 07/23/18 07/23/18 History [Vitamin B-12] furosemide [Lasix] 20 mg PO DAILY PRN 07/23/18 07/23/18 History meclizine 25 mg PO PRN PRN 07/23/18 07/23/18 History omeprazole 20 mg PO DAILY 07/23/18 07/23/18 History potassium chloride 20 meq PO DAILY PRN 07/23/18 07/23/18 History Active Medications: Active Medications Acetaminophen (Tylenol) 650 mg PO Q4H PRN PRN Reason: Temp > 100.4 Sodium Chloride (Ns Inj) 1,000 mls @ 75 mls/hr IV.CONT .[id number] [facility] Last Admin: 07/24/18 10:38 Dose: Not Given Ceftriaxone Sodium 1,000 mg/ (Sodium Chloride) 100 mls @ 200 mls/hr IV.SIG DAILY [facility] Ondansetron HCl (Zofran Inj) 4 mg IV.PUSH Q6H PRN PRN Reason: NAUSEA OR VOMITING Sodium Chloride (Ns Flush) 2 ml IV.FLUSH BID [facility] Last Admin: 07/24/18 08:10 Dose: Not Given Sodium Chloride (Ns Flush) 2 ml IV.FLUSH PRN PRN PRN Reason: FLUSH AFTER USING IV ACCESS Physical Exam Vital signs: Last Vital Signs Temp 97.7 F 07/24/18 11:40 Pulse 84 07/24/18 11:40 Resp 18 07/24/18 11:40 BP 120/79 07/24/18 11:40 Pulse Ox 96 07/24/18 11:40 Intake & Output 07/22/18 07/23/18 07/24/18 07/25/18 06:59 06:59 06:59 06:59 Intake Total 1720 / 1720 200 / 200 Balance 1720 / 1720 200 / 200 Weight 91.4 kg Narrative: GENERAL: Well-developed, well-nourished, in no acute distress. alert and orientated to person, city, state, year, month, [employer] HEENT: Head is normocephalic without any lesions or masses noted. Facial features are symmetric. Eyes: Pupils equal round reactive to light. Extraocular muscles are intact. Conjunctivae were clear. Oropharyngeal: Pharynx without any erythema edema. Tongue is midline without deviation. Buccal mucosa is moist without any masses or lesions NECK: Supple without any masses. Trachea midline no deviation. No JVD, no bruits are appreciated CARDIAC: Regular rhythm, regular rate. S1/S2 are heard. No murmurs gallops or rubs. LUNGS: Clear to auscultation bilaterally. No wheeze, rhonchi or rales. No use of accessory muscles on inspiration or expiration. ABDOMEN: Soft, nontender. Nondistended. Bowel sounds heard in all 4 quadrants. No organomegaly or masses. Negative rebound, negative guarding EXTREMITIES: No edema, pulses are equal bilaterally. No cyanosis or clubbing NEUROLOGY: Mood and affect appear appropriate. Cranial nerves II through XII grossly intact. Muscle strength 5/5 in upper and lower extremities bilaterally. Deep tendon reflexes are 2+ in upper and lower extremities bilaterally. Results Labs CBC & Chem 7: 07/24/18 06:00 07/24/18 06:00 Caprini VTE Risk Assessment Caprini VTE Risk Assessment: Moderate/High Risk (score >= 2) Caprini Risk Assessment Model: Point Value = 1 Point Value = 2 Point Value = 3 Point Value = 5 Age 41-60 Minor surgery BMI > 25 kg/m2 Swollen legs Varicose veins or History of unexplained or recurrent spontaneous Oral contraceptives or hormone replacement Sepsis (< 1 month) Serious lung disease, including pneumonia (< 1 month) Abnormal pulmonary function Acute myocardial infarction Congestive heart failure (< 1 month) History of inflammatory bowel disease Medical patient at bed rest Age 61-74 Arthroscopic surgery Major open surgery (> 45 min) Laparoscopic surgery (> 45 min) Malignancy Confined to bed (> 72 hours) Immobilizing plaster cast Central venous access Age >= 75 History of VTE Family history of VTE Factor V Leiden Prothrombin [id number] Lupus anticoagulant Anticardiolipin antibodies Elevated serum homocysteine Heparin-induced thrombocytopenia Other congenital or acquired thrombophilia Stroke (< 1 month) Elective arthroplasty Hip, pelvis, or leg fracture Acute spinal cord injury (< 1 month) Prophylaxis Regimen: Total Risk Factor Score Risk Level Prophylaxis Regimen 0-1 Low Early ambulation 2 Moderate Order ONE of the following: *Sequential Compression Device (SCD) *Heparin 5000 units SQ BID 3-4 Higher Order ONE of the following medications: *Heparin 5000 units SQ TID *Enoxaparin/Lovenox 40 mg SQ daily (WT < 150 kg, CrCl > 30 mL/min) *Enoxaparin/Lovenox 30 mg SQ daily (WT < 150 kg, CrCl > 10-29 mL/min) *Enoxaparin/Lovenox 30 mg SQ BID (WT < 150 kg, CrCl > 30 mL/min) AND/OR *Sequential Compression Device (SCD) 5 or more Highest Order ONE of the following medications: *Heparin 5000 units SQ TID (Preferred with Epidurals) *Enoxaparin/Lovenox 40 mg SQ daily (WT < 150 kg, CrCl > 30 mL/min) *Enoxaparin/Lovenox 30 mg SQ daily (WT < 150 kg, CrCl > 10-29 mL/min) *Enoxaparin/Lovenox 30 mg SQ BID (WT < 150 kg, CrCl > 30 mL/min) AND *Sequential Compression Device (SCD) Assessment and Plan Plan Acute kidney injury, resolved Patient was on IV fluids with improvement Avoid nephrotoxins Urinary tract infection Urinalysis does show trace of leukocyte esterase, RBCs, rare bacteria Patient was started on Rocephin IV Await culture for appropriate antibiotics Dementia with an inability to care for self at home Physical therapy evaluated patient indicated that he walked 35 feet with minimal contact guard, indicating he has a rolling walker at home. Possible skilled nurse facility if family cannot take care of him ER documentation indicates that they spoke with the family about hospice consult for care at home Hospice consult was done and family requested the patient go to hospice care facility Hypertension, history of atrial fibrillation, history of CVA, hypothyroidism, Home medications will be continued DVT prevention Patient is on Eliquis Discharge Planning: Discharge to hospice care facility Activity: Ad madhuri. Diet: Regular diet Medication per medication reconciliation Follow-up with primary medical doctor in 1 week H&P: Quality VTE Deep Vein Thrombosis/Pulmonary Embolism Present on Admission: No
[2018-07-24] MEDS: Pantoprazole Sodium 20 MG DR Tablet PO SCH (14:17)
[2018-07-25] MEDS: Sod Chloride 0.9% Inj 1,000 ML IV.CONT SCH (02:53)
[2018-07-25] MEDS ORDERED: Levothyroxine 88 MCG Tablet PO SCH (06:00)
--- NOTE | 2018-07-25 07:43 | P.PNIM ---
Subjective Interval history: 87-year-old male who is seen examined today for follow-up on unable to care for self at home, dementia, mild dehydration. Patient is functioning quite nicely. He is very eager to be discharged. Denies any new complaints. Vital signs are stable. Patient remains afebrile. Patient was actively discharged to hospice care yesterday, however family requested that the patient remain in the hospital overnight. Physical Exam Vital signs: Last Vital Signs Temp 97.3 F L 07/25/18 00:00 Pulse 80 07/25/18 00:00 Resp 20 07/25/18 00:00 BP 118/62 07/25/18 00:00 Pulse Ox 92 L 07/25/18 00:00 Intake & Output 07/23/18 07/24/18 07/25/18 07/26/18 06:59 06:59 06:59 06:59 Intake Total 1720 / 1720 300 / 300 Output Total 600 / 600 Balance 1720 / 1720 -300 / -300 Weight 91.4 kg Narrative: GENERAL: Well-developed, well-nourished, in no acute distress. alert HEENT: Head is normocephalic without any lesions or masses noted. Facial features are symmetric. Eyes: Extraocular muscles are intact. Conjunctivae were clear. NECK: Supple without any masses. Trachea midline no deviation. No JVD, CARDIAC: Regular rhythm, regular rate. S1/S2 are heard. No murmurs gallops or rubs. LUNGS: Clear to auscultation bilaterally. No wheeze, rhonchi or rales. No use of accessory muscles on inspiration or expiration. ABDOMEN: Soft, nontender. Nondistended. Bowel sounds heard in all 4 quadrants. No organomegaly or masses. Negative rebound, negative guarding EXTREMITIES: No edema, pulses are equal bilaterally. No cyanosis or clubbing NEUROLOGY: Mood and affect appear appropriate. Cranial nerves II through XII grossly intact. Moving all extremities, speech is clear Urinary Catheter Management Straight: Cath placed during this visit: yes, but has since been removed by the nurse Insertion date: 07/23/18 Insertion time: 16:05 Removal date: 07/23/18 Removal time: 16:08 Results Labs CBC & Chem 7: 07/24/18 06:00 07/24/18 06:00 Labs: Microbiology 07/23/18 16:04 Catheterized Urine Urine Culture - Preliminary No growth in 24 hours Assessment and Plan Plan Acute kidney injury, resolved Patient was on IV fluids with improvement Avoid nephrotoxins Urine WBCs, rare urine bacteria Urinalysis does show trace of leukocyte esterase, RBCs, rare bacteria Patient was started on Rocephin IV Urine culture indicating no growth Dementia with an inability to care for self at home Physical therapy evaluated patient indicated that he walked 35 feet with minimal contact guard, indicating he has a rolling walker at home. Possible skilled nurse facility if family cannot take care of him ER documentation indicates that they spoke with the family about hospice consult for care at home Hospice consult was done and family requested the patient go to hospice care facility Hypertension, history of atrial fibrillation, history of CVA, hypothyroidism, Home medications will be continued DVT prevention Patient is on Eliquis Discharge Planning: Discharge to hospice care facility Activity: Ad madhuri. Diet: Regular diet Medication per medication reconciliation Follow-up with primary medical doctor in 1 week Progress Note: Quality VTE Deep Vein Thrombosis/Pulmonary Embolism Present on Admission: No
[2018-07-25] MEDS: Pantoprazole Sodium 20 MG DR Tablet PO SCH (08:37)
[2018-07-25 14:41] VITALS: BP 98/59; PULSE 81; RESP 20; TEMP 96.5; O2SAT 94
== END 2018-07-25 19:00 | disposition hospice, inpatient (51) ==
LOC: PHED 13:20 → PHEDA 13:20 → PH3 21:27
PROVIDERS: ADMIT Internal Medicine; ATTEND Internal Medicine
CPT/HCPCS: 80048; 80053; 81001; 85025; 87086; 90761; 90765; 96361; 96365; 96366; 97110; 97162; 97530; 99285; G0378; G8987; G8988; J0696; J7030; P9612